=== PATIENT | female | born 1935 | race Caucasian/White ===

== ENCOUNTER 2021-05-22 10:39 | Inpatient (IN) | payer MEDICARE, BC, SELFPAY ==
[2021-05-22] VITALS (28 sets, daily range): BP systolic 111–163; BP diastolic 58–95; PULSE 80–149; RESP 16–32; TEMP 36.4–36.8; O2SAT 91–100; BMI 21.9
--- NOTE | ~2021-05-22 | XR_ITS ---
EXAMINATION: XR chest 2V EXAM DATE: 05/22/2021 11:28 INDICATION: Shortness of breath, COPD. TECHNIQUE: Frontal and lateral projections of the chest obtained and reviewed. Comparison is made to prior examination from 12/31/2017. FINDINGS: The lungs are hyperinflated which can be seen with chronic obstructive pulmonary disease ( a clinical diagnosis of functional impairment), but is not diagnostic of it. There is cardiomegaly. There is no pneumothorax suspected. There are no pleural effusions. There are no osseous abnormalitie s identified. IMPRESSION: Chronic hyperinflation. Reviewed, dictated and finalized at location A. IMPRESSION: Chronic hyperinflation.
--- NOTE | 2021-05-22 10:45 | ECG_ITS ---
Measurements Intervals Frederic Rate: 124 P: DC: 0 QRS: 3 QRSD: 87 T: 137 QT: 283 QTc: 408 Interpretive Statements ATRIAL FIBRILLATION WITH RAPID VENTRICULAR RESPONSE ST DEVIATION AND T-WAVE ABNORMALITY, CONSIDER ISCHEMIA Electronically Signed On 05-22-2021 15:51:30 CDT by Aakash Walls M.D.
[2021-05-22 11:01] LABS: Basophils Absolute Auto 0.1 K/mm3 (0.0-0.1); Basophils Percent Auto 0.7 % (0.2-1.2); Eosinophils Percent Auto 0.3 % (0-4.4); Hematocrit 46.3 % (37.0-47.0); Hemoglobin 14.2 g/dL (12.0-15.0); Immature Granulocyte Absolute 0.07 K/mm3 (0.00-0.031); Immature Granulocyte Percent A 0.7 % (0-0.5); Lymphocytes Absolute Auto 1.37 K/mm3 (0.9-3.2); Lymphocytes Percent Auto 14.2 % (18.3-44.2); Mean Corpuscular HGB Conc 30.7 g/dl (32-36); Mean Corpuscular Hemoglobin 28.3 pg (26-34); Mean Corpuscular Volume 92.2 fl (80-100); Mean Platelet Volume 10.2 fl (7.4-10.4); Monocytes Absolute Auto 1.2 K/mm3 (0.1-0.6); Monocytes Percent Auto 12.4 % (2.6-8.5); Neutrophils Absolute Auto 6.9 K/mm3 (1.3-6.7); Neutrophils Percent Auto 71.7 % (45.5-73.1); Platelet Count Result 242 k/mm3 (150-375); Red Blood Count 5.02 M/mm3 (4.2-5.4); Red Cell Distribution Width 14.1 % (11.5-14.5); White Blood Count 9.6 K/mm3 (4.5-10.0)
[2021-05-22 11:01] LABS: Alveolar/Arterial O2 Gradient 126.8 mmHg; Base Excess ABG -4.5 mEq/l (+/-2.0); Carboxyhemoglobin 1.1 % THb (0-2.0); Fractional Inspired Oxygen 36 %; HCO3 ABG 20.8 mEq/l (22.0-26.0); Methemoglobin ABG 0.2 %THb (0-1.5); Oxygen Content ABG 18.9 %vol (16.0-22.0); Oxygen Saturation ABG 95.8 % (95.0-100.0); Oxyhemoglobin 93.9 % THb (90.0-100.0); PCO2 ABG 39.6 mmHg (35.0-45.0); PO2 ABG 83.9 mmHg (80.0-100.0); PO2 FiO2 Ratio Arterial Blood 2.33 %; Reduced Hemoglobin 4.8 %THb (0-5.0); Total Hemoglobin 14.3 g/dL (12.0-18.0); pH ABG 7.339 (7.350-7.450)
[2021-05-22 11:02] LABS: Device NASAL CANNULA; Modified Allen's Test Pass; Site Drawn RIGHT RADIAL
[2021-05-22 11:08] LABS: Alanine Aminotransferase 18 U/L (4-35); Albumin Level 4.4 g/dL (3.5-5.1); Alkaline Phosphatase 107 U/L (38-126); Anion Gap 12 mmol/L (8-16); Aspartate Amino Transferase 29 U/L (14-36); Bilirubin,Total 1.9 mg/dL (0.2-1.3); Blood Urea Nitrogen 33 mg/dL (7-17); Calcium 9.1 mg/dL (8.4-10.2); Carbon Dioxide 26 mmol/L (22-30); Chloride 100 mmol/L (98-107); Estimated CRCL calculation 34 ml/min; Estimated Glomerular Filt Rate 60; Glucose 231 mg/dL (65-110); Potassium 4.4 mmol/L (3.4-5.0); Sodium 138 mmol/L (137-145)
--- NOTE | 2021-05-22 12:28 | ED.SOB ---
HPI - SOB/Dyspnea General Chief Complaint: Shortness of Breath/Dyspnea Stated Complaint: resp distress Source: patient and family Limitations: no limitations History of Present Illness HPI Narrative: 85-year-old female presents emergency room secondary progressive shortness of breath. Patient has longstanding history of underlying COPD. She is not oxygen dependent at home. She states the last few days she gotten to where she now having some shortness of breath with minimal exertion. This is new for her. She has had some cold-like symptoms . No significant color to her sputum. She denies any chest pain. She does have a history of chronic underlying atrial fibrillation which has been rate controlled. She is fully vaccinated for Covid as well as influenza. She has a rescue inhaler she just use as needed. Related Data Allergies Allergy/AdvReac Type Severity Reaction Status Date / Time No Known Allergies Allergy Mild Verified 11/17/20 14:00 Review of Systems Review of Systems: CONSTITUTIONAL: Denies fever, chills, or sweats. EYES: Denies visual changes, redness, or discharge. ENT: Denies rhinorrhea, congestion, sore throat, or otalgia. CARDIOVASCULAR: Denies chest pain, palpitations, or edema. RESPIRATORY: Progressive shortness of breath over the last several days productive cough at times. A. GASTROINTESTINAL: Denies abdominal pain, nausea, vomiting, or diarrhea. GENITOURINARY: Denies dysuria or hematuria. SKIN: Denies rash or itching. MUSCULOSKELETAL: Denies back pain, joint pain, or myalgia. NEUROLOGIC: Denies headache, numbness, or weakness. PSYCHIATRIC: Denies anxiety or depression. [facility] Past Medical History Medical History ACL (anterior cruciate ligament) tear Atrial fibrillation COPD (chronic obstructive pulmonary disease) Diastolic dysfunction PAD (peripheral artery disease) Pulmonary hypertension Sleep disturbance Surgical History Surgical History History of facial surgery Family History Family History Father Cerebrovascular accident Mother Family history of malignant neoplasm Family history of malignant neoplasm of bone Family history of lymphoma Sibling Family history of cardiovascular disease Other Diabetes mellitus Social History Social History Social History: stop smoking 2000 Smoking status: Former smoker Second hand tobacco smoke exposure: Yes Smoking end date: 02/19/00 Alcohol intake: never Exam Narrative: APPEARANCE: Well appearing, no pain or distress, well-nourished. Head normocephalic and atraumatic. EYES: PERRLA/EOMI, conjunctivae very clear. NOSE: Normal with no drainage EARS:TMS clear [place], with good light reflex. THROAT: Pharynx clear, no exudate. NECK: Supple. No adenopathy, no masses. RESPIRATORY: Mild diffuse expiratory wheezing CARDIOVASCULAR: Irregular rate and rhythm without murmurs, rubs, or gallops. Tachycardic in the 120s ABDOMINAL: Soft, nontender, nondistended, no hepatosplenomegaly Musculoskeletal: Moves all extremities. Strength/ROM intact, No edema, No calf tenderness. NEURO: Alert. Cranial nerves II through XII intact. Normal gait. Good coordination. Nonfocal examination. SKIN:: Warm, dry. Normal Color PSYCHIATRIC: Normal affect/mood, normal interaction Course Vital Signs Vital signs: Vital Signs Temperature 98.3 F 05/22/21 10:30 Pulse Rate 132 H 05/22/21 10:30 Respiratory Rate 30 H 05/22/21 10:30 Blood Pressure 163/76 H 05/22/21 10:30 Pulse Oximetry 98 05/22/21 10:30 Temperature 98.3 F 05/22/21 10:30 Pulse Rate 122 H 05/22/21 13:30 Respiratory Rate 25 H 05/22/21 13:30 Blood Pressure 149/70 H 05/22/21 13:01 Pulse Oximetry 98 05/22/21 13:30 MDM - SOB/Dyspnea MDM Narrative Medi
[2021-05-22] MEDS: ALBUTEROL SULFATE NEB 2.5 MG/0.5 ML INH 5 MG INHALATION (12:39)
[2021-05-22] MEDS: IPRATROPIUM BR 0.02% INH SOLN 0.5 MG/2.5 ML VIAL INHALATION (12:39)
[2021-05-22] MEDS: methylPREDNISolone SOD SUCC 125 MG VIAL IV PUSH (12:44)
[2021-05-22 13:05] LABS: Troponin I 0.047 ng/mL (0.000-0.034)
--- NOTE | 2021-05-22 16:00 | PM.IMHP ---
H&P: HPI History of Present Illness Date/Time: 05/22/21 16:00 Chief Complaint: Shortness of breath. Narrative: This is a pleasant 85-year-old female with COPD and chronic atrial fibrillation on anticoagulation who presented to the emergency department for evaluation of shortness of breath. She has chronic dyspnea but her breathing has been worse these past few weeks. The last 3 days she has felt quite a bit worse with pretty significant wheezing and a cough productive of green phlegm. Initially her nebulizers helped however they have been providing lesser and lesser benefit. Today her pulse oximeter showed an SpO2 in the 70s and she decided to come in for evaluation. Chest x-ray done on arrival to the ER showed chronic hyperinflation and aside from a mild troponin elevation, her other labs were unremarkable. Additionally she was found to be in AFib/RVR though she has no symptoms of such, and she admits that she did not take her diltiazem yet this morning. She has not had fever, chills, or sweats. She denies chest pain, pleuritic pain, orthopnea, paroxysmal nocturnal dyspnea, and lower extremity edema. Her appetite has been fair and she denies nausea, vomiting, and diarrhea. No sick contacts. Review of Systems Review of Systems: Twelve systems were reviewed. Except as documented, all other systems were reviewed and are negative. [facility] Past Medical History Medical History (Updated 05/22/21 @ 21:32 by Lila Collins PA-C) Atrial fibrillation Chronic obstructive pulmonary disease Diastolic dysfunction Peripheral arterial disease Pulmonary hypertension Surgical History Surgical History (Updated 05/22/21 @ 21:20 by Lila Collins PA-C) History of cataract extraction History of facial surgery Family History Family History Father Cerebrovascular accident Mother Family history of malignant neoplasm of bone Family history of cardiovascular disease Diabetes mellitus Family history of malignant neoplasm Family history of lymphoma Sibling Family history of cardiovascular disease Son Diabetes mellitus Social History Social History (Updated 05/22/21 @ 21:21 by Lila Collins PA-C) Social History: Surrogate decision maker: Max Bernstein, dari. Code status: Full code. Smoking packs per day: 1 Smoking cigarettes per day: 20.0 Years smoked: 30 Smoking pack-years: 30.00 Smoking status: Former smoker Tobacco type: cigarettes Second hand tobacco smoke exposure: Yes Smoking end date: 02/19/00 Alcohol intake: current Drinks per week: 1 Substance use: never Additional living arrangements comments: Assisted living at [facility] in [place]. Spiritual care concerns: No Meds Home Medications and Allergies Home Medications Medication Instructions Recorded Confirmed Type albuterol sulfate 90 mcg/actuation 2 puff INHALATION Q4H PRN #8.5 gm 02/25/19 05/22/21 Rx aerosol inhaler rivaroxaban 15 mg tablet 15 mg PO DAILY #90 tablet 04/28/20 05/22/21 Rx potassium chloride 10 mEq See Rx Instructions .ROUTE 11/14/20 05/22/21 Rx capsule,extended release .COMPLEX #30 cap diltiazem HCl 60 mg PO BID 05/22/21 05/22/21 History shreqdftfax-xpeybzyou-rmidjhlz 1 inhalation INHALATION DAILY PRN 05/22/21 05/22/21 History [Trelegy Ellipta] Allergies Allergy/AdvReac Type Severity Reaction Status Date / Time No Known Allergies Allergy Mild Verified 05/22/21 15:08 Vital Signs Vital Signs - 24 hr 05/22/21 10:30 05/22/21 10:48 05/22/21 10:49 Temperature 98.3 F Pulse Rate 132 H Respiratory Rate 30 H Blood Pressure 163/76 H Pulse Oximetry 98 96 96 05/22/21 11:44 05/22/21 11:45 05/22/21 12:29 Temperature Pulse Rate 143 H 133 H 126 H Respiratory Rate 28 H 30 H 23 H Blood Pressure Pulse Oximetry 99 100 96 05/22/21 12:30 05/22/21 12:39 05/22/21 12:48 Temperature Pulse Rate 122 H 133 H 149 H
--- NOTE | 2021-05-22 16:10 | ADMGEN ---
This patient, Danielle Bernstein, was admitted to IMU Room 210-01. Patient/family oriented to hospital policies and general routines including ID bracelet, bed and alarms, visiting hours, pain management, procedures, bathroom and other care routines, personal items, smoking policy, room service/diet, and visiting hours. Information on how to activate the Rapid Response Team has been discussed. Patient/Family are encouraged to report perceived risks to care and to ask questions if they do not understand what they are told or what they should do.
[2021-05-22 16:32] LABS: Troponin I 0.041 ng/mL (0.000-0.034)
[2021-05-22 22:03] LABS: Hemoglobin A1C 5.9 % (<5.7)
[2021-05-22] MEDS: AMOXICILLIN/CLAVULANATE K 875-125 MG TAB 1 TABLET PO (22:16)
[2021-05-22] MEDS: dilTIAZem HCL 60 MG TABLET PO (22:28)
[2021-05-22] MEDS: methylPREDNISolone SOD SUCC 125 MG VIAL 60 MG IV PUSH (23:48)
[2021-05-23] VITALS (26 sets, daily range): BP systolic 107–122; BP diastolic 61–97; PULSE 98–152; RESP 16–20; TEMP 36.2–37.2; O2SAT 91–99
[2021-05-23] MEDS: IPRATROPIUM BR 0.02% INH SOLN 0.5 MG/2.5 ML VIAL INHALATION ×4 (02:06→19:54)
[2021-05-23] MEDS: methylPREDNISolone SOD SUCC 125 MG VIAL 60 MG IV PUSH ×4 (06:40→23:27)
[2021-05-23 08:07] LABS: Glucose Point of Care 156 mg/dl (65-105)
[2021-05-23] MEDS: dilTIAZem HCL 60 MG TABLET PO ×2 (08:21→20:35)
[2021-05-23] MEDS: RIVAROXABAN 15 MG TABLET PO (08:22)
[2021-05-23] MEDS: guaiFENesin 12 HR 600 MG TABCR PO ×2 (08:22→20:35)
[2021-05-23] MEDS: AMOXICILLIN/CLAVULANATE K 875-125 MG TAB 1 TABLET PO ×2 (08:22→20:35)
[2021-05-23] MEDS: POTASSIUM CHLORIDE 10 MEQ TABLET.ER BY MOUTH (08:23)
[2021-05-23] MEDS: FLUTICASONE/UMECLIDIN/VILANTER 100-62.5-25 MCG ELLIPTA 1 PUFF INHALATION (08:34)
[2021-05-23 12:26] LABS: Glucose Point of Care 206 mg/dl (65-105)
[2021-05-23] MEDS: INSULIN ASPART (*BKC) 100 UNITS/ML SUB-Q ×2 (12:30→20:34)
--- NOTE | 2021-05-23 15:02 | PM.IMPN ---
Progress Note: A&P Assessment and Plan (1) Hyperglycemia: Code(s): R73.9 - Hyperglycemia, unspecified Status: Acute (2) Acute respiratory failure with hypoxia: Code(s): J96.01 - Acute respiratory failure with hypoxia Status: Acute (3) Atrial fibrillation with rapid ventricular response: Code(s): I48.91 - Unspecified atrial fibrillation Status: Acute (4) Elevated troponin: Code(s): R77.8 - Other specified abnormalities of plasma proteins Status: Acute (5) Peripheral arterial disease: Code(s): I73.9 - Peripheral vascular disease, unspecified Status: Acute (6) COPD exacerbation: Code(s): J44.1 - Chronic obstructive pulmonary disease with (acute) exacerbation Status: Acute (7) Chronic obstructive pulmonary disease: Code(s): J44.9 - Chronic obstructive pulmonary disease, unspecified Status: Acute (8) Essential hypertension: Code(s): I10 - Essential (primary) hypertension Status: Acute (9) PAD (peripheral artery disease): Code(s): I73.9 - Peripheral vascular disease, unspecified Status: Acute (10) Pulmonary hypertension: Code(s): I27.20 - Pulmonary hypertension, unspecified Status: Acute Additional Plan 05/23/21 c/s pulm c/s cardio metoprolol PRN cont OAC and diltiazem cardio to adjust supplemental O2 duonebs q 4 hrs PRN steroids supportive care Subjective Date/time seen: 05/23/21 15:02 doing ok does report chest tightness and SOB not on home O2 not very compliant w home meds last COPD exacerbation 3 yrs ago Exam Narrative: General: Thin, frail elderly female sitting up in bed. Weight: 56.2 kg. BMI: 21.9. HEENT: PERRL, EOMI. Sclerae anicteric. Oral mucosa is tacky. Neck: Supple. No JVD. Respiratory: Conversational dyspnea, speaking in 4 to 5 word sentences. Occasional pursed lipped breathing. mild accessory muscle use. Lung sounds are significantly diminished throughout with increased expiratory phase and diffuse wheezing. Cardiovascular: Tachycardic, irregularly irregular with S1-S2. Telemetry shows AFib/RVR with rates in the 120s to 130s. Gastrointestinal: Abdomen is soft, nontender, and nondistended with positive bowel sounds. Skin: Warm and dry. No rash or lesions on limited exam. Extremities: No cyanosis, clubbing, or edema. Radial and pedal pulses intact. Negative Frida sign bilaterally. Neurological: Alert. Cranial nerves 2-12 are grossly intact. No gross focal deficits to casual conversation. Psychiatric: Pleasant and cooperative with normal mood and affect. Objective Data Vital Signs Vital Signs: Vital Signs - 24 hr 05/22/21 15:55 05/22/21 16:35 05/22/21 17:00 Temperature 98.3 F Pulse Rate 119 H 80 Respiratory Rate 27 H 24 H Blood Pressure 119/89 147/73 H Pulse Oximetry 98 97 95 05/22/21 18:00 05/22/21 19:59 05/22/21 20:00 Temperature 97.7 F Pulse Rate 115 H 101 H 119 H Respiratory Rate 20 Blood Pressure 111/58 L Pulse Oximetry 96 96 05/22/21 22:00 05/22/21 23:39 05/23/21 00:00 Temperature 97.6 F Pulse Rate 122 H 116 H 110 H Respiratory Rate 16 Blood Pressure 137/95 H Pulse Oximetry 91 96 05/23/21 02:00 05/23/21 02:10 05/23/21 02:11 Temperature Pulse Rate 106 H 104 H Respiratory Rate 16 Blood Pressure Pulse Oximetry 97 05/23/21 02:17 05/23/21 04:00 05/23/21 06:00 Temperature 97.9 F Pulse Rate 98 107 H 110 H Respiratory Rate 16 20 Blood Pressure 111/69 Pulse Oximetry 96 05/23/21 08:00 05/23/21 08:32 05/23/21 08:34 Temperature 97.5 F L Pulse Rate 119 H 111 H Respiratory Rate 20 18 Blood Pressure 108/63 Pulse Oximetry 96 92 05/23/21 08:40 05/23/21 10:00 05/23/21 12:00 Temperature 97.5 F L Pulse Rate 120 H 101 H 131 H Respiratory Rate 18 18 Blood Pressure 119/97 H Pulse Oximetry 94 05/23/21 14:00 05/23/21 14:43 Temperature Pulse Rate 105 H 142 H R
[2021-05-23 16:38] LABS: Glucose Point of Care 190 mg/dl (65-105)
[2021-05-23 20:12] LABS: Glucose Point of Care 305 mg/dl (65-105)
[2021-05-23] MEDS: METOPROLOL TARTRATE INJ 5 MG/5 ML VIAL 2.5 MG IV PUSH (20:34)
--- NOTE | 2021-05-23 21:30 | ECHO_ITS ---
Patient Info Name: Danielle Bernstein Age: 85 years : 1935 Gender: Female Ht: 63 in Wt: 123 lbs BSA: 1.58 m2 HR: 107 bpm BP: 111 / 69 mmHg Heart Rhythm: Atrial Fibrillation Technical Quality: Fair Exam Date: 05/23/2021 8:44 AM Exam Location: [facility] Pul[facility] Patient Status: Inpatient Admit Date: 05/22/2021 Staff Ordering Physician: Lila Collins PA-C Green Hide Inspector: Marilin Valenzuela RDCS Attending Provider: Jarvis Otoole MD Referring Physician: Dennis BRENNAN; Exam Type: CA echo doppler color flow Study Info Indications - Afib/RVR, elevated troponin Complete two-dimensional, color flow and Doppler transthoracic echocardiogram is performed. Summary 1. Complete two-dimensional, color flow and Doppler transthoracic echocardiogram is performed. 2. Left ventricular chamber dimension is normal. 3. Left ventricular systolic function is normal, estimated at 55-60%. 4. There is moderately increased left ventricular wall thickness. 5. The left ventricular diastolic function is abnormal. 6. E/e' 12 is mildly elevated. 7. Atrial fibrillation. 8. Right ventricular systolic function is reduced based on abnormal TAPSE 0.7 cm. 9. Left atrial chamber dimension is severely enlarged. 10. Right atrial chamber dimension is moderately enlarged. 11. There is mild aortic valve sclerosis. 12. The mitral valve has mildly calcified annulus. 13. There is mild mitral valve regurgitation. 14. There is mild to moderate tricuspid valve regurgitation. 15. Severe pulmonary hypertension, estimated pulmonary arterial systolic pressure is 66 mmHg. 16. There is mild to moderate pulmonic regurgitation. 17. Dilated inferior vena cava with <50% collapse upon inspiration consistent with significantly elevated right atrial pressure, 15 mmHg. Left Ventricle E/e' 12 is mildly elevated. Atrial fibrillation. Left ventricular chamber dimension is normal. Left ventricular systolic function is normal, estimated at 55-60%. There is moderately increased left ventricular wall thickness. The left ventricular diastolic function is abnormal. Right Ventricle Right ventricular systolic function is reduced based on abnormal TAPSE 0.7 cm. Right ventricular chamber dimension is not well visualized. Left Atria Left atrial chamber dimension is severely enlarged. Right Atria Right atrial chamber dimension is moderately enlarged. Aortic Valve The aortic valve is trileaflet. There is mild aortic valve sclerosis. There is no aortic valve stenosis. There is no aortic valve regurgitation. Pulmonic Valve There is mild to moderate pulmonic regurgitation. Mitral Valve The mitral valve has mildly calcified annulus. There is no mitral valve stenosis. There is mild mitral valve regurgitation. Tricuspid Valve There is mild to moderate tricuspid valve regurgitation. Severe pulmonary hypertension, estimated pulmonary arterial systolic pressure is 66 mmHg. Pericardium/Pleural There is no pericardial effusion. Inferior Vena Cava Dilated inferior vena cava with <50% collapse upon inspiration consistent with significantly elevated right atrial pressure, 15 mmHg. Aorta The aortic root size at the sinus of Valsalva is normal. Left Ventricular Outflow Tract Name Value Normal LVOT 2D ---------
[2021-05-24] VITALS (26 sets, daily range): BP systolic 97–121; BP diastolic 56–76; PULSE 83–149; RESP 12–20; TEMP 36.1–36.6; O2SAT 91–98
[2021-05-24] MEDS: IPRATROPIUM BR 0.02% INH SOLN 0.5 MG/2.5 ML VIAL INHALATION ×4 (02:11→20:26)
[2021-05-24 04:48] LABS: Basophils Absolute Auto 0.1 K/mm3 (0.0-0.1); Basophils Percent Auto 0.6 % (0.2-1.2); Eosinophils Percent Auto 0.3 % (0-4.4); Hematocrit 40.9 % (37.0-47.0); Hemoglobin 12.8 g/dL (12.0-15.0); Immature Granulocyte Absolute 0.11 K/mm3 (0.00-0.031); Immature Granulocyte Percent A 1.1 % (0-0.5); Lymphocytes Absolute Auto 0.54 K/mm3 (0.9-3.2); Lymphocytes Percent Auto 5.4 % (18.3-44.2); Mean Corpuscular HGB Conc 31.3 g/dl (32-36); Mean Corpuscular Hemoglobin 28.7 pg (26-34); Mean Corpuscular Volume 91.7 fl (80-100); Mean Platelet Volume 10.1 fl (7.4-10.4); Monocytes Absolute Auto 0.4 K/mm3 (0.1-0.6); Monocytes Percent Auto 4.3 % (2.6-8.5); Neutrophils Absolute Auto 8.9 K/mm3 (1.3-6.7); Neutrophils Percent Auto 88.3 % (45.5-73.1); Platelet Count Result 257 k/mm3 (150-375); Red Blood Count 4.46 M/mm3 (4.2-5.4); Red Cell Distribution Width 13.5 % (11.5-14.5)
[2021-05-24 05:08] LABS: Anion Gap 7 mmol/L (8-16); Blood Urea Nitrogen 53 mg/dL (7-17); Calcium 9.1 mg/dL (8.4-10.2); Carbon Dioxide 29 mmol/L (22-30); Chloride 102 mmol/L (98-107); Estimated CRCL calculation 34 ml/min; Estimated Glomerular Filt Rate 60; Glucose 173 mg/dL (65-110); Magnesium 2.6 mg/dL (1.6-2.3); Sodium 138 mmol/L (137-145)
[2021-05-24] MEDS: ONDANSETRON INJ 4 MG/2 ML VIAL IV PUSH (05:49)
[2021-05-24] MEDS: methylPREDNISolone SOD SUCC 125 MG VIAL 60 MG IV PUSH (05:49)
[2021-05-24 08:10] LABS: Glucose Point of Care 176 mg/dl (65-105)
[2021-05-24] MEDS: AMOXICILLIN/CLAVULANATE K 875-125 MG TAB 1 TABLET PO ×2 (08:23→19:55)
[2021-05-24] MEDS: guaiFENesin 12 HR 600 MG TABCR PO ×2 (08:24→19:55)
[2021-05-24] MEDS: dilTIAZem HCL 60 MG TABLET PO ×2 (08:24→19:55)
[2021-05-24] MEDS: RIVAROXABAN 15 MG TABLET PO (08:24)
[2021-05-24] MEDS: FLUTICASONE/UMECLIDIN/VILANTER 100-62.5-25 MCG ELLIPTA 1 PUFF INHALATION (08:55)
--- NOTE | 2021-05-24 10:32 | PM.CNPUL ---
Assessment and Plan Assessment and plan (1) COPD exacerbation: Code(s): J44.1 - Chronic obstructive pulmonary disease with (acute) exacerbation Status: Acute Assessment and Plan: Patient with 46 pack year history of tobacco smoke, quit in 2000, moderate obstructive abnormality on PFTs from 10/08/2018 with air trapping and hyperinflation, pulmonary hypertension with a PASP of 55 this admission who presents with 3 day history of shortness of breath, increased wheezing, increased cough and change in phlegm color to green. Patient has a COPD exacerbation. Today she is 80% back to normal and I would change her Solu-Medrol to prednisone 40 mg p.o. q.day. I will continue her ipratropium nebulizers and levalbuterol nebulizers a q.6 hours. patient has no focal infiltrates on her chest x-ray and I agree with Augmentin which was started on 05/22/2021. patient is requiring 1 L nasal cannula at this time to maintain saturations greater than 90%. since the patient has refused oxygen previously in our clinic I asked the patient if she would wear oxygen at home and she said she needed more time to think about that. It was also recommended in the past the patient had a sleep study and she has continued to refuse that today. Regarding her AFib RVR I am hopeful that her heart rate can be controlled without a beta-delicia, but If needed we could monitor her to determine that she could tolerate that his drug while she is in the hospital. Regarding her pulmonary hypertension I suspect that it is related to her COPD, possible on treated obstructive sleep apnea and untreated hypoxemia. Will follow with you History of Present Illness History of Present Illness Consult date: 05/24/21 Requesting physician: Flora Ospina MD Reason for consult: COPD Chief complaint: Hypoxia, Exaccerbation COPD, Elevated Trop Narrative: 05/24/2021: This is a new pulmonary consult for COPD exacerbation. 85-year-old woman with a history of atrial fibrillation on Xarelto, history of tobacco use, quit in 2000 with COPD with a post bronchodilator FEV1 of 1.10 L, 65% predicted, air trapping and hyper in inflation on PFTs from 10/08/2018. patient was followed in the Pulmonary Clinic and her last visit was on 02/25/2019 and at that time she was maintained on trilogy and rescue short-acting beta agonist. She required oxygen but at that time refused. It was recommended that she have a sleep study and at that time she declined the sleep study. On a good day the patient states she can walk 1 but not to blocks. She does not get short of breath when she dresses or addresses. She states that she lives in assisted living and is able to accomplish the sings that she wants to accomplish on a daily basis. She smokes cigarettes at 1 pack a day from age [age] for a total of 46 pack years. 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 Patient presented to the emergency room on 05/22/2021 with shortness of breath. Patient tells me she had a 3 day history of shortness of breath, increased frequency of her cough, increased phlegm production with green phlegm and some wheezing. Patient was also found to be in AFib with RVR. Patient had a blood gas of 7.34/40/83 on 4 L nasal cannula, WBC 9.6 with 0.3% eos=29/uL, CXR with hyperinflation adn no focal infiltrates. Patient was admitted to the hospital for COPD exacerbation and atrial fibrillation with rapid ventricular response. Patient was treated with Solu-Medrol, ipratropium and levalbuterol nebulizers, Augmentin, trilogy and guaifenesin. patient was started on Diltiazem 60 mg q.12 hours, continued on Xarelto 50 mg p.o. q.day and metoprolol 2.5 mg IV push q.4 hours for her AFib with RVR. 05/24 today the patient tells me that she is 80% back to normal. She has no wheezing. She is on 1 L nasal
[2021-05-24] MEDS: INSULIN ASPART (*BKC) 100 UNITS/ML SUB-Q (12:03)
[2021-05-24] MEDS: predniSONE 20 MG TABLET 40 MG PO (12:03)
[2021-05-24 12:11] LABS: Glucose Point of Care 231 mg/dl (65-105)
[2021-05-24] MEDS: PANTOPRAZOLE 40 MG TABLET PO (12:44)
[2021-05-24] MEDS: METOPROLOL TARTRATE INJ 5 MG/5 ML VIAL 2.5 MG IV PUSH ×2 (13:03→17:01)
--- NOTE | 2021-05-24 14:12 | PM.CNCAR ---
Assessment and Plan Assessment and plan (1) Atrial fibrillation with rapid ventricular response: Code(s): I48.91 - Unspecified atrial fibrillation Status: Acute Assessment and Plan: Rapid due to COPD exacerbation. On Diltiazem 60 mg PO BID. She has been receiving Metoprolol tartate 2.5 mg IV prn. Will add Digoxin 125 mcg daily for HR control until COPD exac resolves. (2) Elevated troponin: Code(s): R77.8 - Other specified abnormalities of plasma proteins Status: Acute Assessment and Plan: Peaked at 0.047. No ACS. Echo shows no wall motion abnormalities. Due to COPD exac. (3) COPD exacerbation: Code(s): J44.1 - Chronic obstructive pulmonary disease with (acute) exacerbation Status: Acute Assessment and Plan: Managed by pulm service. (4) Essential hypertension: Code(s): I10 - Essential (primary) hypertension Status: Acute Assessment and Plan: Stable. Low normal. History of Present Illness History of Present Illness Consult date/time: 05/24/21 14:12 Patient is a 85 yr old woman who is my regular cardiology patient presented to hospital yesterday for sob. She has a history of diastolic dysfunction, PAD, COPD, Atrial fibrillation, PAD, recent diagnosis of Alzheimer's. Her son is at [facility]. Reports she noted more sob in at least the last 3 days. She lives at [place]. 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 Denies any palpitations, chest pain. 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 She lost her in August 2019. Cardiovascular Procedures 05/23/21 Echo: EF 55-60%, mod LVH, diastolic dysfunction (E/e' 12), TAPSE 0.7 cm, severe LAE, mod KEMAR, mild MR, mild-mod TR/PI, RVSP 66 mmHg. Echo/MUGA:: Echo (EF 55-60%, mod biatrial enlargement, mod MR/TR, trace PI.) - 07/10/2017 Echo (EF 60%, mod LVH, patient is in atrial fib; tissue doppler is not performed, mod LAE, severe KEMAR, mild-mod MR, mild AI, mod TR, RVSP 67 mmHg, grade I atheroma in ant/post aortic root.) - 12/11/2016 Electrophysiology:: 05/23/21 EKG: Atrial fib at 124 bpm, ST-T wave abnormality- consider ischemia. 04/28/20 EKG: Atrial fibrillation at 89 bpm. EKG (Atrial fibrillation at 100 bpm, ST-T wave abnormality- consider anterolateral/lat ischemia.) - 12/14/2016 Stress Tests:: CXR (Small bilateral pleural effusions.) - 07/10/2017 MPI (Lexisan myoview: Negative for ischemia.) - 12/21/2016 SHREYA (SHREYA right 1.23 and left 1.19; TBI 0.28 on right and 0.24 on left (normal >0.65) suggestive of PAD. Triphasic waveforms throughout except biphasic at ankle.) - 09/04/2017 Venous Duplex (Negative for DVT bilaterally.) - 09/04/2017 Carotid Duplex (16-49% right ICA; and 50% left ICA stenosis.) - 12/18/2016 Carotid Duplex (<50% right ICA; 50-69% left ICA stenosis.) - 08/18/2012 Reason For Visit: Hypoxia, Exaccerbation COPD, Elevated Trop Review of Systems Review of Systems: All systems reviewed & are unremarkable except as noted in HPI and below Constitutional: Constitutional: Reports as per HPI, Denies chills, Reports fatigue and Denies fever(s) Cardiovascular: Cardiovascular: Reports as per HPI, Denies chest pain, Reports irregular heart rhythm, Denies leg edema and Denies lightheadedness Respiratory: Respiratory: Reports as per HPI, Reports cough and Reports dyspnea on exertion Gastrointestinal: Gastrointestinal: Reports as per HPI and Denies abdominal pain Genitourinary: Genitourinary: Reports as per HPI and Denies dysuria Musculoskeletal: Musculoskeletal: Reports as per HPI Neurologic: Reports as per HPI, Denies dizziness and Denies syncope [facility] Past Medical History Medical History (Updated 05/22/21 @ 21:32 by Lila Collins PA-C) Atrial fibrillation Chronic obstructive pulmonary disease Diastolic dysfunction Peripheral arterial disease Pulmonary hypertension Surgical History Surgical History (Updated 05/22/21 @ 21:20 by Lila Collins PA-C) Hi
[2021-05-24] MEDS: DIGOXIN TAB 125 MCG TABLET PO (14:32)
[2021-05-24 16:41] LABS: Glucose Point of Care 137 mg/dl (65-105)
--- NOTE | 2021-05-24 18:45 | PM.IMPN ---
Progress Note: A&P Assessment and Plan (1) Hyperglycemia: Code(s): R73.9 - Hyperglycemia, unspecified Status: Acute (2) Acute respiratory failure with hypoxia: Code(s): J96.01 - Acute respiratory failure with hypoxia Status: Acute (3) Atrial fibrillation with rapid ventricular response: Code(s): I48.91 - Unspecified atrial fibrillation Status: Acute (4) Elevated troponin: Code(s): R77.8 - Other specified abnormalities of plasma proteins Status: Acute (5) Peripheral arterial disease: Code(s): I73.9 - Peripheral vascular disease, unspecified Status: Acute (6) COPD exacerbation: Code(s): J44.1 - Chronic obstructive pulmonary disease with (acute) exacerbation Status: Acute (7) Chronic obstructive pulmonary disease: Code(s): J44.9 - Chronic obstructive pulmonary disease, unspecified Status: Acute (8) Essential hypertension: Code(s): I10 - Essential (primary) hypertension Status: Acute (9) Pulmonary hypertension: Code(s): I27.20 - Pulmonary hypertension, unspecified Status: Acute Additional Plan 05/23/21 c/s pulm c/s cardio metoprolol PRN cont OAC and diltiazem cardio to adjust supplemental O2 duonebs q 4 hrs PRN steroids supportive care 05/24/21 Patient improving with medical therapy Seen by both Cardiology and pulmonology recommendations appreciated Decrease steroid therapy Anticipate discharge home in 24-48 hours Subjective Date/time seen: 05/24/21 18:45 Patient improving with medical therapy, down 1 L of oxygen at this time Seen by both Cardiology and pulmonology recommendations appreciated Exam Narrative: GEN: NAD, AAOx3, cooperative, frail appearing HEENT: NCAT, MMM, EOMI Neck: no JVD Heart: S1S2 RRR Lungs: CTA B/l no wheezes rhonchi or crackles Abd: soft, NT, ND, bowel sounds normoactive Ext: moves all, no cyanosis, no clubbing, no edema Neuro: Cranial nerves intact A&O x3 no focal neurological deficits appreciated Psych: Mood and affect congruent Objective Data Vital Signs Vital Signs: Vital Signs - 24 hr 05/23/21 19:54 05/23/21 19:55 05/23/21 19:56 Temperature 97.2 F L Pulse Rate 107 H 131 H Respiratory Rate 16 18 Blood Pressure 107/64 Pulse Oximetry 96 91 05/23/21 20:00 05/23/21 20:02 05/23/21 20:34 Temperature Pulse Rate 102 H 110 H 131 H Respiratory Rate 18 Blood Pressure Pulse Oximetry 96 05/23/21 22:00 05/23/21 23:28 05/23/21 23:47 Temperature 97.3 F L Pulse Rate 116 H 103 H Respiratory Rate 20 Blood Pressure 107/61 Pulse Oximetry 94 94 05/24/21 00:00 05/24/21 02:10 05/24/21 02:17 Temperature Pulse Rate 136 H 104 H 111 H Respiratory Rate 19 18 Blood Pressure Pulse Oximetry 05/24/21 02:48 05/24/21 04:00 05/24/21 05:14 Temperature 97.2 F L Pulse Rate 114 H 116 H Respiratory Rate 18 Blood Pressure 105/56 L Pulse Oximetry 96 98 05/24/21 06:34 05/24/21 08:00 05/24/21 08:55 Temperature 97.8 F Pulse Rate 110 H 113 H 123 H Respiratory Rate 12 18 Blood Pressure 116/68 Pulse Oximetry 92 05/24/21 08:58 05/24/21 09:05 05/24/21 10:00 Temperature Pulse Rate 118 H 108 H Respiratory Rate 18 Blood Pressure Pulse Oximetry 92 05/24/21 12:00 05/24/21 13:03 05/24/21 13:47 Temperature 97.2 F L Pulse Rate 115 H 142 H 110 H Respiratory Rate 17 18 Blood Pressure 97/68 L Pulse Oximetry 95 05/24/21 13:54 05/24/21 14:00 05/24/21 14:32 Temperature Pulse Rate 109 H 110 H 121 H Respiratory Rate 18 Blood Pressure Pulse Oximetry 05/24/21 16:00 05/24/21 17:01 05/24/21 18:00 Temperature 97.0 F L Pulse Rate 138 H 121 H 108 H Respiratory Rate 19 Blood Pressure 110/76 Pulse Oximetry 96 Intake/Output Intake/Output: Intake & Output 05/21/21 05/22/21 05/23/21 05/24/21 23:59 23:59 23:59 23:59 Intake Total 513 712 8601 Output Total 0 900
[2021-05-24 20:40] LABS: Glucose Point of Care 229 mg/dl (65-105)
[2021-05-25] VITALS (22 sets, daily range): BP systolic 91–137; BP diastolic 52–106; PULSE 89–165; RESP 14–20; TEMP 36.1–36.9; O2SAT 90–100
[2021-05-25] MEDS: IPRATROPIUM BR 0.02% INH SOLN 0.5 MG/2.5 ML VIAL INHALATION ×2 (01:53→08:39)
[2021-05-25 05:03] LABS: Basophils Percent Auto 0.1 % (0.2-1.2); Hematocrit 41.6 % (37.0-47.0); Hemoglobin 12.5 g/dL (12.0-15.0); Immature Granulocyte Absolute 0.28 K/mm3 (0.00-0.031); Immature Granulocyte Percent A 2.4 % (0-0.5); Lymphocytes Absolute Auto 0.69 K/mm3 (0.9-3.2); Mean Corpuscular Hemoglobin 28.6 pg (26-34); Mean Corpuscular Volume 95.2 fl (80-100); Monocytes Absolute Auto 0.6 K/mm3 (0.1-0.6); Monocytes Percent Auto 5.2 % (2.6-8.5); Neutrophils Absolute Auto 9.9 K/mm3 (1.3-6.7); Neutrophils Percent Auto 86.3 % (45.5-73.1); Platelet Count Result 247 k/mm3 (150-375); Red Blood Count 4.37 M/mm3 (4.2-5.4); Red Cell Distribution Width 13.5 % (11.5-14.5); White Blood Count 11.4 K/mm3 (4.5-10.0)
[2021-05-25 05:14] LABS: D Dimer 0.56 ug/mL (<0.48)
[2021-05-25 05:21] LABS: Anion Gap 4 mmol/L (8-16); Blood Urea Nitrogen 59 mg/dL (7-17); Calcium 9.1 mg/dL (8.4-10.2); Carbon Dioxide 30 mmol/L (22-30); Chloride 100 mmol/L (98-107); Estimated CRCL calculation 34 ml/min; Estimated Glomerular Filt Rate 60; Glucose 187 mg/dL (65-110); Magnesium 2.6 mg/dL (1.6-2.3); Sodium 134 mmol/L (137-145)
--- NOTE | 2021-05-25 08:04 | PM.PNCARD ---
Progress Note: A&P Assessment and Plan (1) Atrial fibrillation with rapid ventricular response: Code(s): I48.91 - Unspecified atrial fibrillation Status: Acute Assessment and Plan: Rapid but better due to COPD exacerbation. On Diltiazem 60 mg PO BID. Add Digoxin 125 mcg daily for HR control until COPD exac resolves. (2) Elevated troponin: Code(s): R77.8 - Other specified abnormalities of plasma proteins Status: Acute Assessment and Plan: Peaked at 0.047. No ACS. Echo shows no wall motion abnormalities. Due to COPD exac. (3) COPD exacerbation: Code(s): J44.1 - Chronic obstructive pulmonary disease with (acute) exacerbation Status: Acute Assessment and Plan: Managed by pulm service. (4) Essential hypertension: Code(s): I10 - Essential (primary) hypertension Status: Acute Assessment and Plan: Stable. Low normal. Subjective Date/time seen: 05/25/21 08:04 Denies chest pain. Has sob same as yesterday. Exam Const: General: cooperative, healthy appearing and comfortable Resp: Auscultation: no crackles, no rales, no rhonchi, no wheezes and diminished lung sounds Cardio: Jugular venous distension: no JVD Rate: tachycardic Rhythm: abnormal rhythm Heart sounds: no murmurs Peripheral pulses: dorsalis pedis present GI: GI Palp: No abdominal tenderness and Yes Soft to palpation Neuro: General: oriented to person, oriented to place and oriented to time Extrem: Right lower extremity: no edema Left lower extremity: no edema Objective Data Vital Signs Vital Signs: Vital Signs - 24 hr 05/24/21 08:55 05/24/21 08:58 05/24/21 09:05 Temperature Pulse Rate 123 H 118 H Respiratory Rate 18 18 Blood Pressure Pulse Oximetry 92 05/24/21 10:00 05/24/21 12:00 05/24/21 13:03 Temperature 97.2 F L Pulse Rate 108 H 115 H 142 H Respiratory Rate 17 Blood Pressure 97/68 L Pulse Oximetry 95 05/24/21 13:47 05/24/21 13:54 05/24/21 14:00 Temperature Pulse Rate 110 H 109 H 110 H Respiratory Rate 18 18 Blood Pressure Pulse Oximetry 05/24/21 14:32 05/24/21 16:00 05/24/21 17:01 Temperature 97.0 F L Pulse Rate 121 H 138 H 121 H Respiratory Rate 19 Blood Pressure 110/76 Pulse Oximetry 96 05/24/21 18:00 05/24/21 20:00 05/24/21 20:30 Temperature 96.9 F L Pulse Rate 108 H 83 114 H Respiratory Rate 20 20 Blood Pressure 121/71 Pulse Oximetry 91 92 05/24/21 20:37 05/24/21 22:41 05/24/21 23:59 Temperature 97.0 F L Pulse Rate 116 H 91 115 H Respiratory Rate 20 18 Blood Pressure 99/63 L Pulse Oximetry 92 05/25/21 00:00 05/25/21 01:42 05/25/21 01:54 Temperature Pulse Rate 93 106 H 114 H Respiratory Rate 16 16 Blood Pressure Pulse Oximetry 92 05/25/21 02:58 05/25/21 04:00 05/25/21 06:18 Temperature 96.9 F L Pulse Rate 98 110 H 102 H Respiratory Rate 20 Blood Pressure 91/60 L Pulse Oximetry 100 Intake/Output Intake/Output: Intake & Output 05/22/21 05/23/21 05/24/21 05/25/21 23:59 23:59 23:59 23:59 Intake Total 050 584 9302 375 Output Total 0 900 Balance 240 -120 1430 375 Meds/Results Medications: Active Medications Generic Name Dose Route Start Last Admin Trade Name Freq PRN Reason Stop Dose Admin Amoxicillin/Clavulanate Potassium 1 tablet 05/22/21 21:05 05/24/21 19:55 Amoxicillin/Clavulanate K 875-125 Mg Tab PO 1 tablet Q12HR MARÍA ELENA Administration Dextrose 12.5 gm 05/22/21 21:33 Dextrose 50% 25 Gm/50 Ml Syringe IV PUSH PRN PRN Hypoglycemia Protocol Digoxin 125 mcg 05/24/21 14:22 05/24/21 14:32 Digoxin Tab 125 Mcg Tablet PO 125 mcg QAM MARÍA ELENA Administration Diltiazem HCl 60 mg 05/22/21 21:00 05/24/21 19:55 Diltiazem Hcl 60 Mg Tablet PO 60 mg Q12HR MARÍA ELENA Administration Glucagon 1 mg 05/22/21 21:33 Glucagon For Inj 1 Mg Vial IM PRN PRN Hypoglycemia Protocol Glucose
[2021-05-25 08:23] LABS: Glucose Point of Care 174 mg/dl (65-105)
[2021-05-25] MEDS: predniSONE 20 MG TABLET 40 MG PO (08:27)
[2021-05-25] MEDS: DIGOXIN TAB 125 MCG TABLET PO (08:27)
[2021-05-25] MEDS: guaiFENesin 12 HR 600 MG TABCR PO ×2 (08:27→20:06)
[2021-05-25] MEDS: PANTOPRAZOLE 40 MG TABLET PO (08:27)
[2021-05-25] MEDS: AMOXICILLIN/CLAVULANATE K 875-125 MG TAB 1 TABLET PO ×2 (08:27→20:06)
[2021-05-25] MEDS: dilTIAZem HCL 60 MG TABLET PO ×2 (08:27→20:06)
[2021-05-25] MEDS: RIVAROXABAN 15 MG TABLET PO (08:27)
[2021-05-25] MEDS: METOPROLOL TARTRATE INJ 5 MG/5 ML VIAL 2.5 MG IV PUSH ×3 (09:30→17:57)
--- NOTE | 2021-05-25 10:01 | PM.PNPUL ---
Progress Note: A&P Assessment and Plan (1) COPD exacerbation: Code(s): J44.1 - Chronic obstructive pulmonary disease with (acute) exacerbation Status: Acute Assessment and Plan: 05/24 Patient with 46 pack year history of tobacco smoke, quit in 2000, moderate obstructive abnormality on PFTs from 10/08/2018 with air trapping and hyperinflation, pulmonary hypertension with a PASP of 55 this admission who presents with 3 day history of shortness of breath, increased wheezing, increased cough and change in phlegm color to green. Patient has a COPD exacerbation. Today she is 80% back to normal and I would change her Solu-Medrol to prednisone 40 mg p.o. q.day. I will continue her ipratropium nebulizers and levalbuterol nebulizers a q.6 hours. patient has no focal infiltrates on her chest x-ray and I agree with Augmentin which was started on 05/22/2021. patient is requiring 1 L nasal cannula at this time to maintain saturations greater than 90%. since the patient has refused oxygen previously in our clinic I asked the patient if she would wear oxygen at home and she said she needed more time to think about that. It was also recommended in the past the patient had a sleep study and she has continued to refuse that today. Regarding her AFib RVR I am hopeful that her heart rate can be controlled without a beta-delicia, but If needed we could monitor her to determine that she could tolerate that his drug while she is in the hospital. Regarding her pulmonary hypertension I suspect that it is related to her COPD, possible untreated obstructive sleep apnea and untreated hypoxemia. 05/25 Patient tells me she is breathing 95% back to normal. She still has minimal shortness of breath. Her green phlegm is now yellow and the volume is at her baseline. She is on 1 L nasal cannula saturations 97%. I turned her to room air and her saturations decreased to 87-91%. I placed her back on 1 L. White blood cell count is 11.4. No wheezes on exam. Will discontinue her nebulizers and place her on trelegy. Continue augmentin (day 4 of ). No wheezes on prednisone 40 mg for total 5 days, last dose 05/26 (steroids started 05/22). I had another discussion about her willingness to wear oxygen and at this time she is not willing to wear supplemental oxygen at home as she feels she does not need it and she is improved now. From a pulmonary perspective she is ready to be discharged on these pulmonary medicines. Prednisone 40 mg p.o. q.day through 05/26/2021 Augmentin 875-125 b.i.d. through 05/28/2021 Trelegy 100/62.5/25 at 1 puff Q day Rescue albuterol at 2 puffs q.4 hours p.r.n. shortness of breath or wheezing If she agrees to supplemental oxygen, would perform formal home O2 assessment on the day of discharge and an overnight oximetry on room air the night prior to her discharge to determine her eligibility for oxygen at night. Follow-up 3-4 weeks in the Pulmonary Clinic. 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 Ospina, will sign off, call with questions Subjective Date/time seen: 05/25/21 10:01 Interval history: 05/24/2021: This is a new pulmonary consult for COPD exacerbation. 85-year-old woman with a history of atrial fibrillation on Xarelto, history of tobacco use, quit in 2000 with COPD with a post bronchodilator FEV1 of 1.10 L, 65% predicted, air trapping and hyperinflation on PFTs from 10/08/2018, Patient had an overnight oximetry on 05/23/2017 on room air with saturations less than or equal to 88% at 17 point 4 4 minutes and at that time she declined supplemental oxygen and declined a polysomnogram. patient was followed in the Pulmonary Clinic and her last visit was on 02/25/2019 and at that time she was maintained on trilogy and rescue short-acting beta agonist. She required oxygen but at that time refused. It was recommended that she have a sleep study and at that time she declined the sleep esha
[2021-05-25] MEDS: INSULIN ASPART (*BKC) 100 UNITS/ML SUB-Q (12:34)
[2021-05-25 12:40] LABS: Glucose Point of Care 250 mg/dl (65-105)
[2021-05-25] MEDS: FUROSEMIDE 20 MG TABLET PO (14:56)
[2021-05-25] MEDS: FLUTICASONE/UMECLIDIN/VILANTER 100-62.5-25 MCG ELLIPTA 1 PUFF INHALATION (15:11)
[2021-05-25 16:28] LABS: Glucose Point of Care 177 mg/dl (65-105)
--- NOTE | 2021-05-25 16:47 | PC.NURSE ---
This patient, Danielle Bernstein, was transferred to [[id number] ] on 05/25/21 at 1647. Personal belongings sent with patient. Report given to [JUDY Goff @ [phone] ]. Appropriate documentation sent with patient.
--- NOTE | 2021-05-25 18:13 | PC.NURSE ---
Pt transfer received from IMU room 210. Patient oriented to the room.
--- NOTE | 2021-05-25 19:02 | PM.IMPN ---
Progress Note: A&P Assessment and Plan (1) Hyperglycemia: Code(s): R73.9 - Hyperglycemia, unspecified Status: Acute (2) Acute respiratory failure with hypoxia: Code(s): J96.01 - Acute respiratory failure with hypoxia Status: Acute (3) Atrial fibrillation with rapid ventricular response: Code(s): I48.91 - Unspecified atrial fibrillation Status: Acute (4) Elevated troponin: Code(s): R77.8 - Other specified abnormalities of plasma proteins Status: Acute (5) Peripheral arterial disease: Code(s): I73.9 - Peripheral vascular disease, unspecified Status: Acute (6) COPD exacerbation: Code(s): J44.1 - Chronic obstructive pulmonary disease with (acute) exacerbation Status: Acute (7) Chronic obstructive pulmonary disease: Code(s): J44.9 - Chronic obstructive pulmonary disease, unspecified Status: Acute (8) Essential hypertension: Code(s): I10 - Essential (primary) hypertension Status: Acute (9) Pulmonary hypertension: Code(s): I27.20 - Pulmonary hypertension, unspecified Status: Acute Additional Plan 05/23/21 c/s pulm c/s cardio metoprolol PRN cont OAC and diltiazem cardio to adjust supplemental O2 duonebs q 4 hrs PRN steroids supportive care 05/24/21 Patient improving with medical therapy Seen by both Cardiology and pulmonology recommendations appreciated Decrease steroid therapy Anticipate discharge home in 24-48 hours 05/25/21 sleep study oximetry tonight home O2 eval in am anticipate dc home tomorrow with close outpt follow up Subjective Date/time seen: 05/25/21 19:02 breathing better on RA but saturating below 91% RN requested to put O2 back on pt Exam Narrative: GEN: NAD, AAOx3, cooperative, frail appearing HEENT: NCAT, MMM, EOMI Neck: no JVD Heart: S1S2 RRR Lungs: CTA B/l no wheezes rhonchi or crackles 89% on RA Abd: soft, NT, ND, bowel sounds normoactive Ext: moves all, no cyanosis, no clubbing, no edema Neuro: Cranial nerves intact A&O x3 no focal neurological deficits appreciated Psych: Mood and affect congruent Objective Data Vital Signs Vital Signs: Vital Signs - 24 hr 05/24/21 20:00 05/24/21 20:30 05/24/21 20:37 Temperature 96.9 F L Pulse Rate 83 114 H 116 H Respiratory Rate 20 20 20 Blood Pressure 121/71 Pulse Oximetry 91 92 05/24/21 22:41 05/24/21 23:59 05/25/21 00:00 Temperature 97.0 F L Pulse Rate 91 115 H 93 Respiratory Rate 18 Blood Pressure 99/63 L Pulse Oximetry 92 92 05/25/21 01:42 05/25/21 01:54 05/25/21 02:58 Temperature Pulse Rate 106 H 114 H 98 Respiratory Rate 16 16 Blood Pressure Pulse Oximetry 05/25/21 04:00 05/25/21 06:18 05/25/21 08:00 Temperature 96.9 F L 97.5 F L Pulse Rate 110 H 102 H 92 Respiratory Rate 20 16 Blood Pressure 91/60 L 130/52 L Pulse Oximetry 100 99 05/25/21 08:27 05/25/21 08:43 05/25/21 09:30 Temperature Pulse Rate 118 H 114 H 165 H Respiratory Rate 18 Blood Pressure Pulse Oximetry 05/25/21 10:00 05/25/21 11:55 05/25/21 12:00 Temperature 97.6 F Pulse Rate 117 H 121 H 146 H Respiratory Rate 14 Blood Pressure 137/106 H Pulse Oximetry 92 92 05/25/21 13:54 05/25/21 14:02 05/25/21 15:56 Temperature 98.4 F Pulse Rate 134 H 89 Respiratory Rate 16 Blood Pressure 111/67 Pulse Oximetry 90 97 05/25/21 16:00 05/25/21 17:57 Temperature Pulse Rate 134 H 120 H Respiratory Rate Blood Pressure Pulse Oximetry Intake/Output Intake/Output: Intake & Output 05/22/21 05/23/21 05/24/21 05/25/21 23:59 23:59 23:59 23:59 Intake Total 989 807 8117 735 Output Total 0 900 1 Balance 240 -120 1430 734 Meds/Results Medications: Active Medications Generic Name Dose Route Start Last Admin Trade Name Freq PRN Reason Stop Dose Admin Amoxicillin/Clavulanate Potassium 1 tablet 05/22/21 21:05 05/25/21 08:27 Amoxicillin/Clavulanate
[2021-05-25 20:45] LABS: Glucose Point of Care 216 mg/dl (65-105)
[2021-05-26] VITALS (15 sets, daily range): BP systolic 137; BP diastolic 91; PULSE 68–129; RESP 16; TEMP 36.6; O2SAT 87–94
[2021-05-26] MEDS: METOPROLOL TARTRATE INJ 5 MG/5 ML VIAL 2.5 MG IV PUSH (05:07)
[2021-05-26 07:38] LABS: Glucose Point of Care 140 mg/dl (65-105)
--- NOTE | 2021-05-26 07:54 | PM.PNCARD ---
Progress Note: A&P Assessment and Plan (1) Atrial fibrillation with rapid ventricular response: Code(s): I48.91 - Unspecified atrial fibrillation Status: Acute Assessment and Plan: Rapid but better due to COPD exacerbation. On Diltiazem 60 mg PO BID. Add Digoxin 125 mcg daily for HR control until COPD exac resolves. Change Metoprolol Tartate 2.5 mg IV prn to 25 mg PO BID. (2) Elevated troponin: Code(s): R77.8 - Other specified abnormalities of plasma proteins Status: Acute Assessment and Plan: Peaked at 0.047. No ACS. Echo shows no wall motion abnormalities. Due to COPD exac. (3) COPD exacerbation: Code(s): J44.1 - Chronic obstructive pulmonary disease with (acute) exacerbation Status: Acute Assessment and Plan: Managed by pulm service. (4) Essential hypertension: Code(s): I10 - Essential (primary) hypertension Status: Acute Assessment and Plan: Stable. Low normal. Subjective Date/time seen: 05/26/21 07:54 Reports sob slightly better than yesterday. No chest pain. Exam Const: General: cooperative, healthy appearing and comfortable Resp: Auscultation: no crackles, no rales, no rhonchi, no wheezes and diminished lung sounds Cardio: Jugular venous distension: no JVD Rate: tachycardic Rhythm: abnormal rhythm Heart sounds: no murmurs Peripheral pulses: dorsalis pedis present GI: GI Palp: No abdominal tenderness and Yes Soft to palpation Neuro: General: oriented to person, oriented to place and oriented to time Extrem: Right lower extremity: no edema Left lower extremity: no edema Objective Data Vital Signs Vital Signs: Vital Signs - 24 hr 05/25/21 08:00 05/25/21 08:27 05/25/21 08:43 Temperature 97.5 F L Pulse Rate 92 118 H 114 H Respiratory Rate 16 18 Blood Pressure 130/52 L Pulse Oximetry 99 05/25/21 09:30 05/25/21 10:00 05/25/21 11:55 Temperature 97.6 F Pulse Rate 165 H 117 H 121 H Respiratory Rate 14 Blood Pressure 137/106 H Pulse Oximetry 92 05/25/21 12:00 05/25/21 13:54 05/25/21 14:02 Temperature Pulse Rate 146 H 134 H Respiratory Rate Blood Pressure Pulse Oximetry 92 90 05/25/21 15:56 05/25/21 16:00 05/25/21 17:57 Temperature 98.4 F Pulse Rate 89 134 H 120 H Respiratory Rate 16 Blood Pressure 111/67 Pulse Oximetry 97 05/25/21 19:47 05/25/21 20:00 05/25/21 20:57 Temperature 97.8 F Pulse Rate 111 H 89 Respiratory Rate 14 14 Blood Pressure 112/70 Pulse Oximetry 94 100 100 05/25/21 22:17 05/26/21 00:00 05/26/21 04:00 Temperature Pulse Rate 89 103 H 115 H Respiratory Rate 14 Blood Pressure Pulse Oximetry 100 05/26/21 05:07 05/26/21 05:13 Temperature 97.9 F Pulse Rate 124 H 68 Respiratory Rate 16 Blood Pressure 137/91 H Pulse Oximetry 94 Intake/Output Intake/Output: Intake & Output 05/23/21 05/24/21 05/25/21 05/26/21 23:59 23:59 23:59 23:59 Intake Total 780 1430 735 300 Output Total 900 1 Balance -120 1430 734 300 Meds/Results Medications: Active Medications Generic Name Dose Route Start Last Admin Trade Name Freq PRN Reason Stop Dose Admin Amoxicillin/Clavulanate Potassium 1 tablet 05/22/21 21:05 05/25/21 20:06 Amoxicillin/Clavulanate K 875-125 Mg Tab PO 1 tablet Q12HR MARÍA ELENA Administration Dextrose 12.5 gm 05/22/21 21:33 Dextrose 50% 25 Gm/50 Ml Syringe IV PUSH PRN PRN Hypoglycemia Protocol Digoxin 125 mcg 05/24/21 14:22 05/25/21 08:27 Digoxin Tab 125 Mcg Tablet PO 125 mcg QAM MARÍA ELENA Administration Diltiazem HCl 60 mg 05/22/21 21:00 05/25/21 20:06 Diltiazem Hcl 60 Mg Tablet PO 60 mg Q12HR MARÍA ELENA Administration Fluticasone/Umeclidinium/Vilanterol 1 puff 05/25/21 10:15 05/25/21 15:11 Fluticasone/Umeclidin/Vilanter 100-62.5-25 Mcg Ellipta INHALATION 1 puff DAILYRT MARÍA ELENA Administration Glucagon 1 mg 05/22/21 21:33 Glucagon For Inj 1 Mg Vial
[2021-05-26] MEDS: predniSONE 20 MG TABLET 40 MG PO (07:59)
[2021-05-26] MEDS: guaiFENesin 12 HR 600 MG TABCR PO (07:59)
[2021-05-26] MEDS: DIGOXIN TAB 125 MCG TABLET PO (07:59)
[2021-05-26] MEDS: dilTIAZem HCL 60 MG TABLET PO (07:59)
[2021-05-26] MEDS: RIVAROXABAN 15 MG TABLET PO (08:00)
[2021-05-26] MEDS: AMOXICILLIN/CLAVULANATE K 875-125 MG TAB 1 TABLET PO (08:00)
[2021-05-26] MEDS: PANTOPRAZOLE 40 MG TABLET PO (08:00)
[2021-05-26] MEDS: FLUTICASONE/UMECLIDIN/VILANTER 100-62.5-25 MCG ELLIPTA 1 PUFF INHALATION (08:13)
--- NOTE | 2021-05-26 08:20 | PM.DS ---
DS: Admitting Diagnosis Discharge Date 05/26/21 Admitting Diagnosis (1) Acute respiratory failure with hypoxia: Code(s): J96.01 - Acute respiratory failure with hypoxia Status: Acute (2) COPD exacerbation: Code(s): J44.1 - Chronic obstructive pulmonary disease with (acute) exacerbation Status: Acute (3) Elevated troponin: Code(s): R77.8 - Other specified abnormalities of plasma proteins Status: Acute (4) Atrial fibrillation with rapid ventricular response: Code(s): I48.91 - Unspecified atrial fibrillation Status: Acute (5) Hyperglycemia: Code(s): R73.9 - Hyperglycemia, unspecified Status: Acute DS: Discharge Diagnosis Discharge Diagnosis (1) Hyperglycemia: Code(s): R73.9 - Hyperglycemia, unspecified Status: Acute (2) Acute respiratory failure with hypoxia: Code(s): J96.01 - Acute respiratory failure with hypoxia Status: Acute (3) Atrial fibrillation with rapid ventricular response: Code(s): I48.91 - Unspecified atrial fibrillation Status: Acute (4) Elevated troponin: Code(s): R77.8 - Other specified abnormalities of plasma proteins Status: Acute (5) Peripheral arterial disease: Code(s): I73.9 - Peripheral vascular disease, unspecified Status: Acute (6) COPD exacerbation: Code(s): J44.1 - Chronic obstructive pulmonary disease with (acute) exacerbation Status: Acute (7) Chronic obstructive pulmonary disease: Code(s): J44.9 - Chronic obstructive pulmonary disease, unspecified Status: Acute (8) Essential hypertension: Code(s): I10 - Essential (primary) hypertension Status: Acute (9) Pulmonary hypertension: Code(s): I27.20 - Pulmonary hypertension, unspecified Status: Acute (10) KAREEN and COPD overlap syndrome: Code(s): G47.33 - Obstructive sleep apnea (adult) (pediatric); J44.9 - Chronic obstructive pulmonary disease, unspecified Status: Acute DS: Summary Hospital Course Reason for hospitalization: SOB Hospital Course: 05/22/21 Secondary to COPD exacerbation. Pulmonary embolism unlikely as she is on rivaroxaban. Wean oxygen as tolerated. She would benefit from a home oxygen study prior to discharge. She has been started on Solu-Medrol, scheduled bronchodilators, and Augmentin given increasing shortness of breath and mucopurulent cough. Mucinex and Cornet added to help mobilize secretions. She is not complaining of any chest pain whatsoever and likely these are elevated in the setting of AFib/ RVR and hypoxia related to COPD exacerbation. She will be monitor on telemetry overnight however in troponins will be trended to peak. Echocardiogram ordered; consider Cardiology consult if significantly abnormal. She missed her diltiazem this morning and her rate should improve once she gets this on board. Continue rivaroxaban for stroke prophylaxis. Check fasting glucose and hemoglobin A1c. 05/23/21 c/s pulm c/s cardio metoprolol PRN cont OAC and diltiazem cardio to adjust supplemental O2 duonebs q 4 hrs PRN steroids supportive care 05/24/21 Patient improving with medical therapy Seen by both Cardiology and pulmonology recommendations appreciated Decrease steroid therapy Anticipate discharge home in 24-48 hours 05/25/21 sleep study oximetry tonight home O2 eval in am anticipate dc home tomorrow with close outpt follow up 05/26/21 pulmonology has cleared the patient for discharging given the following recommendations - Prednisone 40 mg p.o. q.day through 05/26/2021 - Augmentin 875-125 b.i.d. through 05/28/2021 -Trelegy 100/62.5/25 at 1 puff Q day -Rescue albuterol at 2 puffs q.4 hours p.r.n. shortness of breath or wheezing Patient is discharged home in stable condition with home O2. She is requested to wear this oxygen during the day and at night. She is advised to see her PCP within 3 days and to follow-up 3-4 weeks in the Pulmonary Clinic.
[2021-05-26] MEDS: METOPROLOL TARTRATE 25 MG TABLET PO (08:28)
--- NOTE | 2021-05-26 11:09 | HOMEO2EVAL ---
Evaluation was performed at [facility] Home Oxygen Evaluation RC: Home Oxygen (O2) Evaluation Start: 05/25/21 19:02 Freq: ONCE Status: Active Protocol: RPE Activity Type Activity Date Activity User E-Sign Co-Sign Detail Recorded Client Recorded Date Recorded By Document 05/26/21 10:35 [email or web address] [email or web address] 05/26/21 11:09 DJO Document 05/26/21 10:40 [email or web address] [email or web address] 05/26/21 11:09 DJO Document 05/26/21 10:45 [email or web address] [email or web address] 05/26/21 11:09 DJO Document 05/26/21 10:50 [email or web address] [email or web address] 05/26/21 11:09 DJO Document 05/26/21 11:05 [email or web address] [email or web address] 05/26/21 11:09 DJO 05/26/21 05/26/21 05/26/21 10:35 10:40 10:45 Home O2 Evaluation Test Phase Resting Resting Exercise Oxygen Delivery Room Air Nasal Cannula Nasal Cannula Oxygen Flow Rate (L/min) 1 1 Pulse Oximetry (90-100 %) 87 L 90 88 L Pulse Rate (60-100 beats/min) 98 99 120 H Activity Tolerance Ambulation Distance (feet) Ambulation Distance (meters) Treatment Charges O2 Evaluation - Inpatient 05/26/21 05/26/21 10:50 11:05 Home O2 Evaluation Test Phase Exercise Resting Oxygen Delivery Nasal Cannula Nasal Cannula Oxygen Flow Rate (L/min) 2 1 Pulse Oximetry (90-100 %) 91 91 Pulse Rate (60-100 beats/min) 129 H 95 Activity Tolerance Good Ambulation Distance (feet) 300 Ambulation Distance (meters) 91.43 Treatment Charges
--- NOTE | 2021-05-26 11:13 | PCRCNOTE ---
HOME O2 1 LITER AT REST AND 2 LITERS WITH ACTIVITY. SET UP WITH [facility]. PHONE NUMBER [phone] TANK DELIVERED TO PT'S ROOM FOR DISCHARGE.
[2021-05-26 11:32] LABS: Glucose Point of Care 178 mg/dl (65-105)
[2021-05-26] MEDS: SUCRALFATE SUSP 100 MG/ML 10 ML UDC 1000 MG PO (13:10)
== END 2021-05-26 13:35 | DRG 190 ==
LOC: ANHED 12:13 → ANHIMU 18:38 → ANH2MED 05-26 08:20 → ANHIMU 05-29 12:48
PROVIDERS: Physician Assistant; Admitting Provider Internal Medicine; Emergency Provider Emergency Medicine; PCP Family Medicine; Visit Provider Hospitalist
DX: J44.1 Chronic obstructive pulmonary disease with (acute) exacerbation (principal); J96.01 Acute respiratory failure with hypoxia; I48.20 Chronic atrial fibrillation, unspecified; I73.9 Peripheral vascular disease, unspecified; R73.9 Hyperglycemia, unspecified; I27.20 Pulmonary hypertension, unspecified; G47.33 Obstructive sleep apnea (adult) (pediatric); G30.9 Alzheimer's disease, unspecified; R79.89 Other specified abnormal findings of blood chemistry; Z87.891 Personal history of nicotine dependence; Z79.01 Long term (current) use of anticoagulants
CPT/HCPCS: 36415; 36600; 71046; 80048; 80053; 82375; 82805; 82948; 83036; 83050; 83735; 84484; 85025; 85380; 93005; 93306; 94618; 94640; 96374; 99285; A9270; J1815; J2405; J2930; J7512

== ENCOUNTER 2021-06-01 11:22 | Inpatient (IN) | payer MEDICARE, BC, SELFPAY ==
[2021-06-01] VITALS (14 sets, daily range): BP systolic 110–143; BP diastolic 63–93; PULSE 69–132; RESP 16–24; TEMP 36.2–36.3; O2SAT 90–98; BMI 22.4
--- NOTE | ~2021-06-01 | XR_ITS ---
EXAMINATION: XR chest 2V DATE: 06/03/2021 11:05 INDICATION: Shortness of breath. Weakness. TECHNIQUE: Frontal and lateral views of the chest were obtained. COMPARISON: Chest single view 06/01/2021, chest 2 views 05/22/2021 FINDINGS: The lungs are hyperexpanded with lucencies in the upper lungs, consistent with emphysema. T here is mild airspace opacities at the lung bases. There are tiny pleural effusions. No pneumothorax. Cardiomegaly is noted. There are 2 chronic compression fractures in mid thoracic spine. IMPRESSION: 1. Mild airspace opacities at the lung bases, consistent with atelectasis versus pneumonia. 2. Tiny pleural effusions. 3. Emphysema. 4. Cardiomegaly. Reviewed, dictated and finalized at location A. IMPRESSION: 1. Mild airspace opacities at the lung bases, consistent with atelectasis versu s pneumonia. 2. Tiny pleural effusions. 3. Emphysema. 4. Cardiomegaly.
--- NOTE | ~2021-06-01 | XR_ITS ---
EXAMINATION: XR chest 1V portable EXAM DATE: 06/05/2021 06:03 INDICATION: Pneumonia. TECHNIQUE: Portable AP frontal chest x-ray was obtained. Comparison is made to prior examination from 06/03/2021. FINDINGS: The cardiac silhouette is enlarged. Scattered basilar airspace disease, atelectasis or pneu monia. There is no pneumothorax suspected. There are no pleural effusions. There are no bony erosions identified. IMPRESSION: Scattered bibasilar atelectasis or pneumonia. Reviewed, dictated and finalized at location A.
--- NOTE | ~2021-06-01 | XR_ITS ---
EXAMINATION: XR chest 1V portable EXAM DATE: 06/01/2021 12:06 INDICATION: Shortness of breath. TECHNIQUE: Portable AP frontal chest x-ray was obtained. Comparison is made to prior examination from 05/22/2021. FINDINGS: There is cardiomegaly. No confluent consolidation, pneumothorax or pleural effusion suspect ed. There is aortic arteriosclerosis. Chronic hyperinflation. There are bony degenerative changes. IMPRESSION: Cardiomegaly and hyperinflation unchanged. Reviewed, dictated and finalized at location B.
--- NOTE | 2021-06-01 11:41 | ED.EPISTAXIS ---
HPI - Epistaxis General Chief complaint: Epistaxis <Robert Booker APRN - Last Filed: 06/01/21 13:07> Stated complaint: nosebleed since 829 <Robert Booker APRN - Last Filed: 06/01/21 13:07> Time Seen by Provider: 06/01/21 11:25 <Robert Booker APRN - Last Filed: 06/01/21 13:07> History of Present Illness HPI Narrative: 85-year-old female presents the emergency room for evaluation of nosebleed that began at 8:00 this morning. Patient denies injury or trauma. Patient is accompanied by family member at the bedside. According to family member, patient was recently hospitalized for acute respiratory distress secondary to COPD exacerbation. Patient was discharged from the hospital approximately 1 week ago. Family member states that patient has had increased episodes of confusion, is concerned she may be developing urinary tract infection or worsening of her COPD. Patient has recently began wearing home oxygen <Robert Booker APRN - Last Filed: 06/01/21 13:07> Related Data Home medications: Home Medications Medication Instructions Recorded Confirmed Trelegy Ellipta 1 inhalation INHALATION DAILY PRN 05/22/21 05/30/21 diltiazem HCl 60 mg PO BID 05/22/21 05/30/21 <Robert Booker APRN - Last Filed: 06/01/21 13:07> Allergies/adverse reactions: Allergies Allergy/AdvReac Type Severity Reaction Status Date / Time No Known Allergies Allergy Mild Verified 06/01/21 11:33 <Robert Booker APRN - Last Filed: 06/01/21 13:07> Review of Systems Review of Systems: CONSTITUTIONAL: Denies fever, chills, or sweats. EYES: Denies visual changes, redness, or discharge. ENT: Reports epistaxis CARDIOVASCULAR: Denies chest pain, palpitations, or edema. RESPIRATORY: Reports shortness of breath GASTROINTESTINAL: Denies abdominal pain, nausea, vomiting, or diarrhea. GENITOURINARY: Denies dysuria or hematuria. SKIN: Denies rash or itching. MUSCULOSKELETAL: Denies back pain, joint pain, or myalgia. NEUROLOGIC: Denies headache, numbness, dizziness, or weakness. PSYCHIATRIC: Denies anxiety or depression. <Robert Booker, BENCH ASSEMBLER - Last Filed: 06/01/21 13:07> [facility] Past Medical History Medical History: Medical History Atrial fibrillation Chronic obstructive pulmonary disease Diastolic dysfunction Peripheral arterial disease Pulmonary hypertension <Robert Booker, BENCH ASSEMBLER - Last Filed: 06/01/21 13:07> Surgical History Surgical History: Surgical History History of cataract extraction History of facial surgery <Robert Booker, BENCH ASSEMBLER - Last Filed: 06/01/21 13:07> Family History Family History: Family History Father Cerebrovascular accident Mother Family history of malignant neoplasm of bone Family history of cardiovascular disease Diabetes mellitus Family history of malignant neoplasm Family history of lymphoma Sibling Family history of cardiovascular disease Son Diabetes mellitus <Robert Booker, BENCH ASSEMBLER - Last Filed: 06/01/21 13:07> Social History Social History: Social History Social History: Surrogate decision maker: Max Bernstein, son. Code status: Full code. Smoking packs per day: 1 Smoking cigarettes per day: 20.0 Years smoked: 45 Smoking pack-years: 45.00 Tobacco type: cigarettes Second hand tobacco smoke exposure: Yes Smoking end date: 10/29/00 Alcohol intake: current Drinks per week: 1 Substance use: never Substance use type: does not use Additional living arrangements comments: Assisted living at [facility]. Gender identity (if verbalized by the patient): Female Spiritual care concerns: No <Robert Booker, BENCH ASSEMBLER - Last Filed: 06/01/21 13:07> Exam Narrative: GENERAL: Well-
--- NOTE | 2021-06-01 11:54 | ECG_ITS ---
Measurements Intervals [place] Rate: 116 P: WA: 0 QRS: 3 QRSD: 81 T: 171 QT: 272 QTc: 379 Interpretive Statements ATRIAL FIBRILLATION WITH RAPID VENTRICULAR RESPONSE MODERATE VOLTAGE CRITERIA FOR LVH, CONSIDER NORMAL VARIANT [MEETS CRITERIA IN ONE OF: R(aVL), S(V1), R(V5), R(V5/V6)+S(V1)] ST DEVIATION AND MODERATE T-WAVE ABNORMALITY, CONSIDER LATERAL ISCHEMIA [-0.1+ mV T WAVE IN I/aVL/V5/V6] ABNORMAL ECG COMPARED TO ECG 05/22/2021 10:44:02 NO SIGNIFICANT CHANGES Electronically Signed On 06-01-2021 17:00:16 CDT by Robert Sinclair M.D.
[2021-06-01 12:04] LABS: Basophils Absolute Auto 0.1 K/mm3 (0.0-0.1); Basophils Percent Auto 0.6 % (0.2-1.2); Eosinophils Absolute Auto 0.2 K/mm3 (0-0.3); Eosinophils Percent Auto 0.6 % (0-4.4); Hematocrit 43.6 % (37.0-47.0); Hemoglobin 13.9 g/dL (12.0-15.0); Immature Granulocyte Absolute 0.73 K/mm3 (0.00-0.031); Immature Granulocyte Percent A 3.1 % (0-0.5); Lymphocytes Absolute Auto 2.06 K/mm3 (0.9-3.2); Lymphocytes Percent Auto 8.7 % (18.3-44.2); Mean Corpuscular HGB Conc 31.9 g/dl (32-36); Mean Corpuscular Hemoglobin 28.8 pg (26-34); Mean Corpuscular Volume 90.3 fl (80-100); Mean Platelet Volume 10.1 fl (7.4-10.4); Monocytes Absolute Auto 1.8 K/mm3 (0.1-0.6); Monocytes Percent Auto 7.6 % (2.6-8.5); Neutrophils Absolute Auto 18.7 K/mm3 (1.3-6.7); Neutrophils Percent Auto 79.4 % (45.5-73.1); Platelet Count Result 326 k/mm3 (150-375); Red Blood Count 4.83 M/mm3 (4.2-5.4); Red Cell Distribution Width 13.7 % (11.5-14.5); White Blood Count 23.6 K/mm3 (4.5-10.0)
[2021-06-01 12:15] LABS: INR 2.3; Partial Thromboplastin Time 33.4 SECONDS (22.3-36.8); Prothrombin Time 24.5 Seconds (11.1-14.7)
[2021-06-01 12:20] LABS: Alanine Aminotransferase 21 U/L (4-35); Albumin Level 3.6 g/dL (3.5-5.1); Alkaline Phosphatase 57 U/L (38-126); Anion Gap 5 mmol/L (8-16); Aspartate Amino Transferase 27 U/L (14-36); Bilirubin,Total 0.9 mg/dL (0.2-1.3); Blood Urea Nitrogen 39 mg/dL (7-17); Calcium 8.2 mg/dL (8.4-10.2); Carbon Dioxide 32 mmol/L (22-30); Chloride 100 mmol/L (98-107); Estimated Glomerular Filt Rate > 60; Glucose 165 mg/dL (65-110); Potassium 4.9 mmol/L (3.4-5.0); Sodium 137 mmol/L (137-145)
[2021-06-01 12:28] LABS: Platelet Estimate Adequate (Adequate)
[2021-06-01 12:29] LABS: Acanthocytes 1+ (NORMAL); Ovalocytes 2+ (NORMAL)
[2021-06-01 12:31] LABS: Appearance Urine Clear (Clear); Bilirubin Urine 1+ (Negative); Blood Urine 3+ (Negative); Color Urine Yellow (Yellow); Glucose Urine UA 1+ mg/dL (Negative); Ketones Urine Trace mg/dL (Negative); Leukocyte Esterase Ur Negative LEU/UL (Negative); Nitrate Urine Positive (Negative); Protein Urine 2+ mg/dL (Negative); Specific Grav Ur >= 1.030 (1.001-1.035); pH Urine 5.5 (5.0-9.0)
[2021-06-01 12:34] LABS: Troponin I 0.158 ng/mL (0.000-0.034)
[2021-06-01 12:38] LABS: Bacteria Urine 2+ /hpf; Mucus Urine Rare /lpf; RBC Urine 21-50 /hpf (0-2); Squamous Epithelial Cell Urine Many /hpf (Few)
[2021-06-01 12:40] LABS: Add Urine Microscopic? YES
[2021-06-01] MEDS: METOPROLOL TARTRATE INJ 5 MG/5 ML VIAL IV PUSH (12:54)
--- NOTE | 2021-06-01 13:25 | PM.CNCAR ---
Assessment and Plan Assessment and plan (1) Epistaxis: Code(s): R04.0 - Epistaxis Status: Acute (2) Elevated troponin: Code(s): R77.8 - Other specified abnormalities of plasma proteins Status: Acute Assessment and Plan: Monitor and follow to peak. No symptoms to suggest ACS. Likely due to UTI/Atrial fib with RVR/COPD. (3) Urinary tract infection: Qualifiers: Hematuria presence: with hematuria Urinary tract infection type: acute cystitis Qualified Code(s): N30.01 - Acute cystitis with hematuria Code(s): N39.0 - Urinary tract infection, site not specified Status: Acute Assessment and Plan: Manage as per hospitalist. (4) Confusion: Code(s): R41.0 - Disorientation, unspecified Status: Acute Assessment and Plan: Probably due to UTI. (5) Atrial fibrillation with rapid ventricular response: Code(s): I48.91 - Unspecified atrial fibrillation Status: Acute Assessment and Plan: Continue rate control medication. Her HR range 86-125 bpm. If no longer having nosebleeds, continue Xarelto 15 mg in evening with meal. (6) Chronic obstructive pulmonary disease: Code(s): J44.9 - Chronic obstructive pulmonary disease, unspecified Status: Acute (7) Peripheral arterial disease: Code(s): I73.9 - Peripheral vascular disease, unspecified Status: Acute Assessment and Plan: Stable. (8) Diastolic dysfunction: Code(s): I51.89 - Other ill-defined heart diseases Status: Acute Assessment and Plan: Stable. History of Present Illness History of Present Illness Consult date/time: 06/01/21 13:25 Reason for consult: Elevated troponin. Patient is a 85 yr old woman who is my regular cardiology patient presented to ER for nose bleed. She has a history of diastolic dysfunction, PAD, COPD, Atrial fibrillation, PAD, recent diagnosis of Alzheimer's. Her daughter in law is at bedside. Reports this morning she had nosebleed and was brought to ER for treatment. Her daughter in law states she noted some confusion in her yesterday also. She has chronic sob due to COPD. She lives at [place]. 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 Denies any palpitations, chest pain. 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 She lost her in August 2019. WBC 23.1. INR 2.3. Trop 0.151. EKG: Atrial fib with RVT at 116 bpm, LVH with ST-T changes. U/A shows some bacteria and nitrite and RBC's. Cardiovascular Procedures 05/23/21 Echo: EF 55-60%, mod LVH, diastolic dysfunction (E/e' 12), TAPSE 0.7 cm, severe LAE, mod KEMAR, mild MR, mild-mod TR/PI, RVSP 66 mmHg. Echo/MUGA:: Echo (EF 55-60%, mod biatrial enlargement, mod MR/TR, trace PI.) - 07/10/2017 Echo (EF 60%, mod LVH, patient is in atrial fib; tissue doppler is not performed, mod LAE, severe KEMAR, mild-mod MR, mild AI, mod TR, RVSP 67 mmHg, grade I atheroma in ant/post aortic root.) - 12/11/2016 Electrophysiology:: 05/23/21 EKG: Atrial fib at 124 bpm, ST-T wave abnormality- consider ischemia. 04/28/20 EKG: Atrial fibrillation at 89 bpm. EKG (Atrial fibrillation at 100 bpm, ST-T wave abnormality- consider anterolateral/lat ischemia.) - 12/14/2016 Stress Tests:: CXR (Small bilateral pleural effusions.) - 07/10/2017 MPI (Lexisan myoview: Negative for ischemia.) - 12/21/2016 SHREYA (SHREYA right 1.23 and left 1.19; TBI 0.28 on right and 0.24 on left (normal >0.65) suggestive of PAD. Triphasic waveforms throughout except biphasic at ankle.) - 09/04/2017 Venous Duplex (Negative for DVT bilaterally.) - 09/04/2017 Carotid Duplex (16-49% right ICA; and 50% left ICA stenosis.) - 12/18/2016 Carotid Duplex (<50% right ICA; 50-69% left ICA stenosis.) - 08/18/2012 Reason For Visit: nosebleed since 0830 Review of Systems Review of Systems: All systems reviewed & are unremarkable except as noted in HPI and below Constitutional: Constitutional: Reports as per HPIVitaliy
[2021-06-01 13:48] LABS: Lactic Acid Reflex 2.1 mmol/L (0.7-2.1)
[2021-06-01 14:16] LABS: SARS-CoV-2 RNA PCR Negative
[2021-06-01 14:48] LABS: Troponin I 0.179 ng/mL (0.000-0.034)
--- NOTE | 2021-06-01 15:53 | ADMGEN ---
This patient, Danielle Bernstein, was admitted to IMU Room 206-01. Patient/family oriented to hospital policies and general routines including ID bracelet, bed and alarms, visiting hours, pain management, procedures, bathroom and other care routines, personal items, smoking policy, room service/diet, and visiting hours. Information on how to activate the Rapid Response Team has been discussed. Patient/Family are encouraged to report perceived risks to care and to ask questions if they do not understand what they are told or what they should do.
[2021-06-01 16:36] LABS: Reflex Lactic Acid Yes or No Add Lactic
[2021-06-01 17:13] LABS: Lactic Acid 2.2 mmol/L (0.7-2.1)
[2021-06-01 17:37] LABS: Troponin I 0.179 ng/mL (0.000-0.034)
[2021-06-01 19:07] LABS: Hematocrit 43.2 % (37.0-47.0); Hemoglobin 13.2 g/dL (12.0-15.0)
--- NOTE | 2021-06-01 19:53 | PM.IMHP ---
H&P: HPI History of Present Illness Date/Time: 06/01/21 19:54 Chief Complaint: Epistaxis Narrative: Patient is an 85-year-old female with a past medical history of atrial fibrillation, COPD, pulmonary hypertension who presented to the ED with complaints of epistasis that began at 8:00 a.m. this morning. Patient denies any trauma or injury as she was accompanied by her daughter in law. She stated that she has been little nauseated and short of breath since all of this started. They did try cool compress and to hold her head back however that did not help. Patient was on Xarelto and could be the cause for her bloody nose today. Patient denies any hemoptysis, melena, hematemesis. She denies any sweats fevers or chills. She did state that she has felt a little bit more confused than normal today. She also stated that she was just here for COPD exacerbation and I UTI. She denies any swelling of the legs. Her son was in there as she was alert and oriented however she kept saying that she has been more confused lately. Heart rate is noted to be elevated. UA looks infectious. WBC 23.6. Trops have been on trend. Patient is being admitted to the hospitalist service under observation. Review of Systems Review of Systems: All systems reviewed & are unremarkable except as noted in HPI and below PMFSH Past Medical History Medical History Atrial fibrillation Chronic obstructive pulmonary disease Diastolic dysfunction Peripheral arterial disease Pulmonary hypertension Surgical History Surgical History History of cataract extraction History of facial surgery Family History Family History Father Cerebrovascular accident Mother Family history of malignant neoplasm of bone Family history of cardiovascular disease Diabetes mellitus Family history of malignant neoplasm Family history of lymphoma Sibling Family history of cardiovascular disease Congestive heart failure Son Diabetes mellitus Social History Social History (Updated 06/01/21 @ 20:16 by AVRIL Butcher) Social History: Surrogate decision maker: Max Bernstein, dari. Code status: DNR/DNI Smoking packs per day: 1 Smoking cigarettes per day: 20.0 Years smoked: 40 Smoking pack-years: 40.00 Smoking status: Former smoker Tobacco type: cigarettes Second hand tobacco smoke exposure: Yes Smoking end date: 10/29/00 Alcohol intake: never Drinks per week: 1 Substance use: never Substance use type: does not use Living arrangements: assisted living Additional living arrangements comments: Assisted living at [facility] in [place]. Occupation/Education: retired Gender identity (if verbalized by the patient): Female Spiritual care concerns: No Meds Home Medications and Allergies Home Medications Medication Instructions Recorded Confirmed Type albuterol sulfate 90 mcg/actuation 2 puff INHALATION Q4H PRN #8.5 gm 02/25/19 06/01/21 Rx aerosol inhaler Trelegy Ellipta 1 inhalation INHALATION DAILY 05/22/21 06/01/21 History diltiazem HCl 60 mg PO Q12H 05/22/21 06/01/21 History digoxin 125 mcg PO QAM 30 Days #30 tablet 05/26/21 06/01/21 Rx metoprolol tartrate 25 mg PO Q12HR 60 Days #120 tablet 05/26/21 06/01/21 Rx ondansetron 4 mg PO Q8H PRN #60 tablet 05/26/21 06/01/21 Rx pantoprazole 40 mg PO QAM 30 Days #30 tablet 05/26/21 06/01/21 Rx prednisone 10 mg PO .ASDIR #21 tablet 05/26/21 06/01/21 Rx Xarelto 15 mg PO HS 06/01/21 06/01/21 History potassium chloride 10 meq PO HS 06/01/21 06/01/21 History Allergies Allergy/AdvReac Type Severity Reaction Status Date / Time No Known Allergies Allergy Mild Verified 06/01/21 11:33 Vital Signs Vital Signs - 24 hr 06/01/21 11:23 06/01/21 11:27 06/01/21 11:30 Temperature Pulse Rate Res
[2021-06-01] MEDS: METOPROLOL TARTRATE 25 MG TABLET PO (20:14)
[2021-06-01] MEDS: POTASSIUM CHLORIDE 10 MEQ TABLET.ER PO (20:14)
[2021-06-01] MEDS: dilTIAZem HCL 60 MG TABLET PO (20:30)
[2021-06-02] VITALS (16 sets, daily range): BP systolic 101–143; BP diastolic 48–97; PULSE 41–126; RESP 16–100; TEMP 36.1–36.4; O2SAT 91–100
[2021-06-02 05:58] LABS: Alanine Aminotransferase 18 U/L (4-35); Albumin Level 3.3 g/dL (3.5-5.1); Alkaline Phosphatase 58 U/L (38-126); Anion Gap 4 mmol/L (8-16); Aspartate Amino Transferase 21 U/L (14-36); Bilirubin,Total 0.7 mg/dL (0.2-1.3); Blood Urea Nitrogen 48 mg/dL (7-17); Carbon Dioxide 33 mmol/L (22-30); Chloride 101 mmol/L (98-107); Estimated CRCL calculation 50 ml/min; Estimated Glomerular Filt Rate > 60; Glucose 141 mg/dL (65-110); Magnesium 2.4 mg/dL (1.6-2.3); Potassium 4.5 mmol/L (3.4-5.0); Sodium 138 mmol/L (137-145)
[2021-06-02 06:03] LABS: Basophils Absolute Auto 0.1 K/mm3 (0.0-0.1); Basophils Percent Auto 0.3 % (0.2-1.2); Eosinophils Absolute Auto 0.1 K/mm3 (0-0.3); Eosinophils Percent Auto 0.7 % (0-4.4); Hematocrit 41.8 % (37.0-47.0); Hemoglobin 12.7 g/dL (12.0-15.0); Immature Granulocyte Absolute 0.42 K/mm3 (0.00-0.031); Immature Granulocyte Percent A 2.2 % (0-0.5); Lymphocytes Percent Auto 9.6 % (18.3-44.2); Mean Corpuscular HGB Conc 30.4 g/dl (32-36); Mean Corpuscular Hemoglobin 28.5 pg (26-34); Mean Corpuscular Volume 93.7 fl (80-100); Mean Platelet Volume 10.3 fl (7.4-10.4); Monocytes Absolute Auto 1.4 K/mm3 (0.1-0.6); Monocytes Percent Auto 7.5 % (2.6-8.5); Neutrophils Percent Auto 79.7 % (45.5-73.1); Platelet Count Result 281 k/mm3 (150-375); Red Blood Count 4.46 M/mm3 (4.2-5.4); Red Cell Distribution Width 14.1 % (11.5-14.5); White Blood Count 18.8 K/mm3 (4.5-10.0)
--- NOTE | 2021-06-02 07:37 | PM.PNCARD ---
Progress Note: A&P Assessment and Plan (1) Epistaxis: Code(s): R04.0 - Epistaxis Status: Acute Assessment and Plan: Stable. (2) Elevated troponin: Code(s): R77.8 - Other specified abnormalities of plasma proteins Status: Acute Assessment and Plan: Troponin peaked at 0.179. No symptoms to suggest ACS. Likely due to UTI/Atrial fib with RVR/COPD. (3) Urinary tract infection: Qualifiers: Hematuria presence: with hematuria Urinary tract infection type: acute cystitis Qualified Code(s): N30.01 - Acute cystitis with hematuria Code(s): N39.0 - Urinary tract infection, site not specified Status: Acute Assessment and Plan: Manage as per hospitalist. (4) Confusion: Code(s): R41.0 - Disorientation, unspecified Status: Acute Assessment and Plan: Probably due to UTI. (5) Atrial fibrillation with rapid ventricular response: Code(s): I48.91 - Unspecified atrial fibrillation Status: Acute Assessment and Plan: Continue rate control medication. Her HR range 86-144 bpm. If no longer having nosebleeds, continue Xarelto 15 mg in evening with meal. Then, june d/c home from cardiology standpoint and f/u with me in 1 week. (6) Chronic obstructive pulmonary disease: Code(s): J44.9 - Chronic obstructive pulmonary disease, unspecified Status: Acute (7) Peripheral arterial disease: Code(s): I73.9 - Peripheral vascular disease, unspecified Status: Acute Assessment and Plan: Stable. (8) Diastolic dysfunction: Code(s): I51.89 - Other ill-defined heart diseases Status: Acute Assessment and Plan: Stable. Subjective Date/time seen: 06/02/21 07:37 Denies chest pain. Chronic sob. No more nosebleed. Exam Const: General: cooperative, healthy appearing and comfortable HENMT: General nose exam: Other nasal findings present (nasal tamponade in place with no bleeding) Resp: Auscultation: no crackles, no rales, no rhonchi, no wheezes and diminished lung sounds Cardio: Jugular venous distension: no JVD Rate: tachycardic Rhythm: abnormal rhythm Heart sounds: no murmurs Peripheral pulses: dorsalis pedis present GI: GI Palp: No abdominal tenderness and Yes Soft to palpation Neuro: General: oriented to person, oriented to place and oriented to time Extrem: Right lower extremity: no edema Left lower extremity: no edema Objective Data Vital Signs Vital Signs: Vital Signs - 24 hr 06/01/21 11:23 06/01/21 11:27 06/01/21 11:30 Temperature Pulse Rate Respiratory Rate 16 Blood Pressure 122/63 122/63 Pulse Oximetry 90 06/01/21 11:31 06/01/21 12:54 06/01/21 12:57 Temperature Pulse Rate 118 H 132 H 122 H Respiratory Rate Blood Pressure 136/66 Pulse Oximetry 96 06/01/21 15:17 06/01/21 16:00 06/01/21 16:14 Temperature 97.2 F L Pulse Rate 112 H 86 94 Respiratory Rate 24 H 20 Blood Pressure 110/93 H 143/64 H Pulse Oximetry 97 93 93 06/01/21 18:00 06/01/21 19:51 06/01/21 20:00 Temperature 97.4 F L Pulse Rate 121 H 103 H 124 H Respiratory Rate 20 Blood Pressure 111/75 Pulse Oximetry 98 06/01/21 20:14 06/01/21 22:00 06/02/21 00:00 Temperature 97.6 F Pulse Rate 69 114 H 74 Respiratory Rate 18 Blood Pressure 132/78 Pulse Oximetry 100 06/02/21 02:00 06/02/21 04:00 Temperature 97.2 F L Pulse Rate 103 H 110 H Respiratory Rate 100 H Blood Pressure 101/60 Pulse Oximetry Intake/Output Intake/Output: Intake & Output 05/30/21 05/31/21 06/01/21 06/02/21 23:59 23:59 23:59 23:59 Intake Total 420 250 Balance 420 250 Meds/Results Medications: Active Medications Generic Name Dose Route Start Last Admin Trade Name Freq PRN Reason Stop Dose Admin Digoxin 125 mcg 06/02/21 09:00 Digoxin Tab 125 Mcg Tablet PO [facility] Diltiazem HCl 60 mg 06/01/21 21:00 06/01/21 20:30 Diltiazem Hcl
[2021-06-02] MEDS: PANTOPRAZOLE 40 MG TABLET PO (08:51)
[2021-06-02] MEDS: METOPROLOL TARTRATE 25 MG TABLET PO ×2 (08:51→22:43)
[2021-06-02] MEDS: dilTIAZem HCL 60 MG TABLET PO ×2 (08:52→22:44)
[2021-06-02] MEDS: DIGOXIN TAB 125 MCG TABLET PO (08:52)
[2021-06-02] MEDS: FLUTICASONE/UMECLIDIN/VILANTER 100-62.5-25 MCG ELLIPTA 1 PUFF INHALATION (09:16)
[2021-06-02] MEDS: TOLNAFTATE 1% POWDER 45 GM BTL 1 APPLIC TOPICAL ×2 (14:02→22:43)
--- NOTE | 2021-06-02 17:31 | P.PNIM_ITS ---
Progress Note: A&P Assessment and Plan (1) Epistaxis: Code(s): R04.0 - Epistaxis Status: Acute Assessment and Plan: * Reports bleeding started this morning at 8:00 a.m. * H&H remained stable * Nasal rocket placed by ED * Trend labs * ENT consult 06/02/2021 interval history: patient presented with epistaxis most likely secondary to anticoagulation, emergency department rhino rocket was placed in left nostril, anticoagulation will hold, will keep the renal rocket for 48 hours and remove it and assess the patient for any bleeding and then resume anticoagulation, with elevated tropes seen by her strike off machine operator does not suspect acute plaque rupture most likely demand ischemia due to epistaxis and stress, patient also complains of rash under her right breast her nurse Mulu is prese nt in the room patient has candidiasis will apply nystatin and monitor, patient with a urine suspicious for UTI patient started on ceftriaxone will follow-up on urine culture, continue to monitor (2) Elevated troponin: Code(s): R77.8 - Other specified abnormalities of plasma proteins Status: Acute Assessment and Plan: * Troponins elevated above baseline 0.158, 0.179, 0.179 * Baseline troponins are 0.04 * Cardiology consulted * Could be secondary to uncontrolled heart rate and bleeding * Tele monitor (3) Essential hypertension: Code(s): I10 - Essential (primary) hypertension Status: Acute Assessment and Plan: * Blood pressure 111/75 * Continue home metoprolol * Trend blood pressure * Adjust therapy as indicated (4) Atrial fibrillation: Code(s): I48.91 - Unspecified atrial fibrillation Status: Acute Assessment and Plan: * Rate is uncontrolled * Continue metoprolol 25 q.12, digoxin 125 mcg p.o. q.a.m., Cardizem 60 mg q.12 * Tele monitor * Trend rate * Adjust therapy as indicated * Cardiology consulted (5) Abnormal urinalysis: Code(s): R82.90 - Unspecified abnormal findings in urine Status: Acute Assessment and Plan: * UA shows 3+ blood, positive nitrates, negative leukocyte esterase, wbc's 7-9, urine bacteria 2+ * Continue ceftriaxone for now * Urine culture pending * Reports confusion and wbc's are 23.6 * Adjust therapy according to culture results (6) Leukocytosis: Code(s): D72.829 - Elevated white blood cell count, unspecified Status: Acute Assessment and Plan: * WBCs elevated at 23.6 * IV ceftriaxone on board * Chest x-ray does not show any signs of infection * UA possibly infectious * Trend labs * Labs in a.m. Subjective Date/time seen: 06/02/21 17:31 Chief Complaint: Epistaxis Narrative: Patient is an 85-year-old female with a past medical history of atrial fibrillation, COPD, pulmonary hypertension who presented to the ED with complaints of epistasis that began at 8:00 a.m. this morning. Patient denies any trauma or injury as she was accompanied by her daughter in law. She stated that she has been little nauseated and short of breath since all of this started. They did try cool compress and to hold her head back however that did not help. Patient was on Xarelto and could be the cause for her bloody nose today. Patient denies any hemoptysis, melena, hematemesis. She denies any sweats fevers or chills. She did state that she has felt a little bit more confused than normal today. She also stated that she was just here for COPD exacerbation and I UTI. She denies a
--- NOTE | 2021-06-02 17:31 | PM.IMPN ---
Progress Note: A&P Assessment and Plan (1) Epistaxis: Code(s): R04.0 - Epistaxis Status: Acute Assessment and Plan: Reports bleeding started this morning at 8:00 a.m. H&H remained stable Nasal rocket placed by ED Trend labs ENT consult 06/02/2021 interval history: patient presented with epistaxis most likely secondary to anticoagulation, emergency department rhino rocket was placed in left nostril, anticoagulation will hold, will keep the renal rocket for 48 hours and remove it and assess the patient for any bleeding and then resume anticoagulation, with elevated tropes seen by her utilization supervisor does not suspect acute plaque rupture most likely demand ischemia due to epistaxis and stress, patient also complains of rash under her right breast her nurse Mulu is present in the room patient has candidiasis will apply nystatin and monitor, patient with a urine suspicious for UTI patient started on ceftriaxone will follow-up on urine culture, continue to monitor (2) Elevated troponin: Code(s): R77.8 - Other specified abnormalities of plasma proteins Status: Acute Assessment and Plan: Troponins elevated above baseline 0.158, 0.179, 0.179 Baseline troponins are 0.04 Cardiology consulted Could be secondary to uncontrolled heart rate and bleeding Tele monitor (3) Essential hypertension: Code(s): I10 - Essential (primary) hypertension Status: Acute Assessment and Plan: Blood pressure 111/75 Continue home metoprolol Trend blood pressure Adjust therapy as indicated (4) Atrial fibrillation: Code(s): I48.91 - Unspecified atrial fibrillation Status: Acute Assessment and Plan: Rate is uncontrolled Continue metoprolol 25 q.12, digoxin 125 mcg p.o. q.a.m., Cardizem 60 mg q.12 Tele monitor Trend rate Adjust therapy as indicated Cardiology consulted (5) Abnormal urinalysis: Code(s): R82.90 - Unspecified abnormal findings in urine Status: Acute Assessment and Plan: UA shows 3+ blood, positive nitrates, negative leukocyte esterase, wbc's 7-9, urine bacteria 2+ Continue ceftriaxone for now Urine culture pending Reports confusion and wbc's are 23.6 Adjust therapy according to culture results (6) Leukocytosis: Code(s): D72.829 - Elevated white blood cell count, unspecified Status: Acute Assessment and Plan: WBCs elevated at 23.6 IV ceftriaxone on board Chest x-ray does not show any signs of infection UA possibly infectious Trend labs Labs in a.m. Subjective Date/time seen: 06/02/21 17:31 Chief Complaint: Epistaxis Narrative: Patient is an 85-year-old female with a past medical history of atrial fibrillation, COPD, pulmonary hypertension who presented to the ED with complaints of epistasis that began at 8:00 a.m. this morning. Patient denies any trauma or injury as she was accompanied by her daughter in law. She stated that she has been little nauseated and short of breath since all of this started. They did try cool compress and to hold her head back however that did not help. Patient was on Xarelto and could be the cause for her bloody nose today. Patient denies any hemoptysis, melena, hematemesis. She denies any sweats fevers or chills. She did state that she has felt a little bit more confused than normal today. She also stated that she was just here for COPD exacerbation and I UTI. She denies any swelling of the legs. Her son was in there as she was alert and oriented however she kept saying that she has been more confused lately. Heart rate is noted to be elevated. UA looks infectious. WBC 23.6. Trops have been on trend. 06/02/2021 interval history: patient presented with epistaxis most likely secondary to anticoagulation, emergency department rhino rocket was placed in left nostril, anticoagulation will hold, will keep the renal rocket for 48
[2021-06-02] MEDS: POTASSIUM CHLORIDE 10 MEQ TABLET.ER PO (22:44)
[2021-06-03] VITALS (18 sets, daily range): BP systolic 98–124; BP diastolic 50–91; PULSE 63–135; RESP 16–26; TEMP 36.1–36.6; O2SAT 95–100
--- NOTE | 2021-06-03 02:42 | PC.NURSE ---
Pt. heartrate is unstable afib with rvr HR 40-102 bpm pt. asymptomatic with no changes in breathing pallor or pain status. Dr. Morales called and informed. Informed Dr. Morales of pts. DNR status. Dr. Morales ordered to monitor the pt. closely for and changes. Will continue to monitor patient angelo for changes.
[2021-06-03] MEDS: dilTIAZem HCL 60 MG TABLET PO ×2 (08:26→20:53)
[2021-06-03] MEDS: DIGOXIN TAB 125 MCG TABLET PO (08:26)
[2021-06-03] MEDS: TOLNAFTATE 1% POWDER 45 GM BTL 1 APPLIC TOPICAL ×2 (08:26→20:53)
[2021-06-03] MEDS: METOPROLOL TARTRATE 25 MG TABLET PO ×2 (08:26→20:53)
[2021-06-03] MEDS: PANTOPRAZOLE 40 MG TABLET PO (08:26)
[2021-06-03] MEDS: FLUTICASONE/UMECLIDIN/VILANTER 100-62.5-25 MCG ELLIPTA 1 PUFF INHALATION (08:28)
[2021-06-03] MEDS: cefTRIAXone 2 GM in SODIUM CHLORIDE 0.9% IV 100 ML 200 ML IVPB (09:44)
--- NOTE | 2021-06-03 12:37 | P.PNIM_ITS ---
Progress Note: A&P Assessment and Plan (1) Epistaxis: Code(s): R04.0 - Epistaxis Status: Acute Assessment and Plan: * Reports bleeding started this morning at 8:00 a.m. * H&H remained stable * Nasal rocket placed by ED * Trend labs * ENT consult 06/02/2021 interval history: patient presented with epistaxis most likely secondary to anticoagulation, emergency department rhino rocket was placed in left nostril, anticoagulation will hold, will keep the renal rocket for 48 hours and remove it and assess the patient for any bleeding and then resume anticoagulation, with elevated tropes seen by her [facility] home [facility] does not suspect acute plaque rupture most likely demand ischemia due to epistaxis and stress, patient also complains of rash under her right breast her nurse Mulu is prese nt in the room patient has candidiasis will apply nystatin and monitor, patient with a urine suspicious for UTI patient started on ceftriaxone will follow-up on urine culture, continue to monitor. 06/03/2021 interval history: patient presented with epistaxis most likely secondary to anticoagulation, in emergency department rhino rocket was placed in left nostril, anticoagulation will hold, will keep the renal rocket for 48 hours and remove it on Saturday and assess the patient for any bleeding and then resume anticoagulation, with elevated tropes seen by her [facility] does not suspect acute plaque rupture most likely demand ischemia due to epistaxis and stress, Patient with history of atrial fibrillation the rate is trending up will consult her [facility] further recommendation, patient also complains of rash under her right breast her nurse Mulu is present in the room patient has candidiasis will apply nystatin and monitor, patient with a urine suspicious for UTI urine culture is growing E coli sensitive to ceftriaxone will continue, chest x-ray concerning for pneumonia will add doxycycline and continue ceftriaxone. (2) Elevated troponin: Code(s): R77.8 - Other specified abnormalities of plasma proteins Status: Acute Assessment and Plan: * Troponins elevated above baseline 0.158, 0.179, 0.179 * Baseline troponins are 0.04 * Cardiology consulted * Could be secondary to uncontrolled heart rate and bleeding * Tele monitor (3) Essential hypertension: Code(s): I10 - Essential (primary) hypertension Status: Acute Assessment and Plan: * Blood pressure 111/75 * Continue home metoprolol * Trend blood pressure * Adjust therapy as indicated (4) Atrial fibrillation: Code(s): I48.91 - Unspecified atrial fibrillation Status: Acute Assessment and Plan: * Rate is uncontrolled * Continue metoprolol 25 q.12, digoxin 125 mcg p.o. q.a.m., Cardizem 60 mg q.12 * Tele monitor * Trend rate * Adjust therapy as indicated * Cardiology consulted (5) Abnormal urinalysis: Code(s): R82.90 - Unspecified abnormal findings in urine Status: Acute Assessment and Plan: * UA shows 3+ blood, positive nitrates, negative leukocyte esterase, wbc's 7-9, urine bacteria 2+ * Continue ceftriaxone for now * Urine culture pending * Reports confusion and wbc's are 23.6 * Adjust therapy according to culture results (6) Leukocytosis: Code(s): D72.829 - Elevated white blood cell count, unspecified Status: Acute Assessment and Plan: * WBCs elevated at 23.6 * IV ceftriaxone on board * Chest x-ray does not show any signs of infection * UA possibly infectious
--- NOTE | 2021-06-03 12:37 | PM.IMPN ---
Progress Note: A&P Assessment and Plan (1) Epistaxis: Code(s): R04.0 - Epistaxis Status: Acute Assessment and Plan: Reports bleeding started this morning at 8:00 a.m. H&H remained stable Nasal rocket placed by ED Trend labs ENT consult 06/02/2021 interval history: patient presented with epistaxis most likely secondary to anticoagulation, emergency department rhino rocket was placed in left nostril, anticoagulation will hold, will keep the renal rocket for 48 hours and remove it and assess the patient for any bleeding and then resume anticoagulation, with elevated tropes seen by her tab machine operator does not suspect acute plaque rupture most likely demand ischemia due to epistaxis and stress, patient also complains of rash under her right breast her nurse Mulu is present in the room patient has candidiasis will apply nystatin and monitor, patient with a urine suspicious for UTI patient started on ceftriaxone will follow-up on urine culture, continue to monitor. 06/03/2021 interval history: patient presented with epistaxis most likely secondary to anticoagulation, in emergency department rhino rocket was placed in left nostril, anticoagulation will hold, will keep the renal rocket for 48 hours and remove it on Saturday and assess the patient for any bleeding and then resume anticoagulation, with elevated tropes seen by her tab machine operator does not suspect acute plaque rupture most likely demand ischemia due to epistaxis and stress, Patient with history of atrial fibrillation the rate is trending up will consult her tab machine operator further recommendation, patient also complains of rash under her right breast her nurse Mulu is present in the room patient has candidiasis will apply nystatin and monitor, patient with a urine suspicious for UTI urine culture is growing E coli sensitive to ceftriaxone will continue, chest x-ray concerning for pneumonia will add doxycycline and continue ceftriaxone. (2) Elevated troponin: Code(s): R77.8 - Other specified abnormalities of plasma proteins Status: Acute Assessment and Plan: Troponins elevated above baseline 0.158, 0.179, 0.179 Baseline troponins are 0.04 Cardiology consulted Could be secondary to uncontrolled heart rate and bleeding Tele monitor (3) Essential hypertension: Code(s): I10 - Essential (primary) hypertension Status: Acute Assessment and Plan: Blood pressure 111/75 Continue home metoprolol Trend blood pressure Adjust therapy as indicated (4) Atrial fibrillation: Code(s): I48.91 - Unspecified atrial fibrillation Status: Acute Assessment and Plan: Rate is uncontrolled Continue metoprolol 25 q.12, digoxin 125 mcg p.o. q.a.m., Cardizem 60 mg q.12 Tele monitor Trend rate Adjust therapy as indicated Cardiology consulted (5) Abnormal urinalysis: Code(s): R82.90 - Unspecified abnormal findings in urine Status: Acute Assessment and Plan: UA shows 3+ blood, positive nitrates, negative leukocyte esterase, wbc's 7-9, urine bacteria 2+ Continue ceftriaxone for now Urine culture pending Reports confusion and wbc's are 23.6 Adjust therapy according to culture results (6) Leukocytosis: Code(s): D72.829 - Elevated white blood cell count, unspecified Status: Acute Assessment and Plan: WBCs elevated at 23.6 IV ceftriaxone on board Chest x-ray does not show any signs of infection UA possibly infectious Trend labs Labs in a.m. Subjective Date/time seen: 06/03/21 12:37 06/02/2021 interval history: patient presented with epistaxis most likely secondary to anticoagulation, emergency department rhino rocket was placed in left nostril, anticoagulation will hold, will keep the renal rocket for 48 hours and remove it and assess the patient for any bleeding and then resume anticoagulation, with elevated tropes seen by
[2021-06-03] MEDS: POTASSIUM CHLORIDE 10 MEQ TABLET.ER PO (20:53)
[2021-06-04] VITALS (17 sets, daily range): BP systolic 99–116; BP diastolic 54–69; PULSE 86–130; RESP 18–24; TEMP 36.3–36.7; O2SAT 94–100
[2021-06-04 04:28] LABS: Hematocrit 35.5 % (37.0-47.0); Hemoglobin 10.9 g/dL (12.0-15.0); Mean Corpuscular HGB Conc 30.7 g/dl (32-36); Mean Corpuscular Hemoglobin 28.6 pg (26-34); Mean Corpuscular Volume 93.2 fl (80-100); Mean Platelet Volume 9.7 fl (7.4-10.4); Platelet Count Result 195 k/mm3 (150-375); Red Blood Count 3.81 M/mm3 (4.2-5.4); Red Cell Distribution Width 14.4 % (11.5-14.5); White Blood Count 16.6 K/mm3 (4.5-10.0)
[2021-06-04 05:01] LABS: Anion Gap 1 mmol/L (8-16); Blood Urea Nitrogen 24 mg/dL (7-17); Calcium 7.8 mg/dL (8.4-10.2); Carbon Dioxide 31 mmol/L (22-30); Chloride 105 mmol/L (98-107); Estimated CRCL calculation 50 ml/min; Estimated Glomerular Filt Rate > 60; Glucose 143 mg/dL (65-110); Potassium 4.4 mmol/L (3.4-5.0); Sodium 137 mmol/L (137-145)
[2021-06-04] MEDS: METOPROLOL TARTRATE 25 MG TABLET PO ×2 (08:36→22:05)
[2021-06-04] MEDS: dilTIAZem HCL 60 MG TABLET PO ×2 (08:36→22:05)
[2021-06-04] MEDS: PANTOPRAZOLE 40 MG TABLET PO (08:37)
[2021-06-04] MEDS: TOLNAFTATE 1% POWDER 45 GM BTL 1 APPLIC TOPICAL ×2 (08:37→22:06)
[2021-06-04] MEDS: DIGOXIN TAB 125 MCG TABLET PO (08:37)
[2021-06-04] MEDS: cefTRIAXone 2 GM in SODIUM CHLORIDE 0.9% IV 100 ML 200 ML IVPB (08:37)
[2021-06-04] MEDS: FLUTICASONE/UMECLIDIN/VILANTER 100-62.5-25 MCG ELLIPTA 1 PUFF INHALATION (09:16)
--- NOTE | 2021-06-04 11:48 | P.PNIM_ITS ---
Progress Note: A&P Assessment and Plan (1) Epistaxis: Code(s): R04.0 - Epistaxis Status: Acute Assessment and Plan: * Reports bleeding started this morning at 8:00 a.m. * H&H remained stable * Nasal rocket placed by ED * Trend labs * ENT consult 06/02/2021 interval history: patient presented with epistaxis most likely secondary to anticoagulation, emergency department rhino rocket was placed in left nostril, anticoagulation will hold, will keep the renal rocket for 48 hours and remove it and assess the patient for any bleeding and then resume anticoagulation, with elevated tropes seen by her allergist immunologist does not suspect acute plaque rupture most likely demand ischemia due to epistaxis and stress, patient also complains of rash under her right breast her nurse Mulu is prese nt in the room patient has candidiasis will apply nystatin and monitor, patient with a urine suspicious for UTI patient started on ceftriaxone will follow-up on urine culture, continue to monitor. 06/03/2021 interval history: patient presented with epistaxis most likely secondary to anticoagulation, in emergency department rhino rocket was placed in left nostril, anticoagulation will hold, will keep the renal rocket for 48 hours and remove it on Saturday and assess the patient for any bleeding and then resume anticoagulation, with elevated tropes seen by her allergist immunologist does not suspect acute plaque rupture most likely demand ischemia due to epistaxis and stress, Patient with history of atrial fibrillation the rate is trending up will consult her allergist immunologist further recommendation, patient also complains of rash under her right breast her nurse Mulu is present in the room patient has candidiasis will apply nystatin and monitor, patient with a urine suspicious for UTI urine culture is growing E coli sensitive to ceftriaxone will continue, chest x-ray concerning for pneumonia will add doxycycline and continue ceftriaxone. 06/04/2021 interval history: patient presented with epistaxis most likely secondary to anticoagulation, in emergency department rhino rocket was placed in left nostril, anticoagulation will hold, will keep the renal rocket for 48 hours and remove it on Saturday and assess the patient for any bleeding and then resume anticoagulation, with elevated tropes seen by her allergist immunologist does not suspect acute plaque rupture most likely demand ischemia due to epistaxis and stress, Patient with history of atrial fibrillation the rate is trending up will consult her allergist immunologist further recommendation, patient also complains of rash under her right breast her nurse Mulu is present in the room patient has candidiasis will apply nystatin and monitor, patient with a urine suspicious for UTI urine culture is growing E coli sensitive to ceftriaxone will continue, chest x-ray concerning for pneumonia will add doxycycline and continue ceftriaxone will CXR tomorrow. (2) Elevated troponin: Code(s): R77.8 - Other specified abnormalities of plasma proteins Status: Acute Assessment and Plan: * Troponins elevated above baseline 0.158, 0.179, 0.179 * Baseline troponins are 0.04 * Cardiology consulted * Could be secondary to uncontrolled heart rate and bleeding * Tele monitor (3) Essential hypertension: Code(s): I10 - Essential (primary) hypertension Status: Acute Assessment and Plan: * Blood pressure 111/75 * Continue home metoprolol * Trend blood pressure * Adjust therapy as indicated (4) Atrial fibrillation: Code(s): I48.91 - Unspecified atrial fibrillation Status: Acute Assessment and Roseanna
--- NOTE | 2021-06-04 11:48 | PM.IMPN ---
Progress Note: A&P Assessment and Plan (1) Epistaxis: Code(s): R04.0 - Epistaxis Status: Acute Assessment and Plan: Reports bleeding started this morning at 8:00 a.m. H&H remained stable Nasal rocket placed by ED Trend labs ENT consult 06/02/2021 interval history: patient presented with epistaxis most likely secondary to anticoagulation, emergency department rhino rocket was placed in left nostril, anticoagulation will hold, will keep the renal rocket for 48 hours and remove it and assess the patient for any bleeding and then resume anticoagulation, with elevated tropes seen by her [employer] financial developer does not suspect acute plaque rupture most likely demand ischemia due to epistaxis and stress, patient also complains of rash under her right breast her nurse Mulu is present in the room patient has candidiasis will apply nystatin and monitor, patient with a urine suspicious for UTI patient started on ceftriaxone will follow-up on urine culture, continue to monitor. 06/03/2021 interval history: patient presented with epistaxis most likely secondary to anticoagulation, in emergency department rhino rocket was placed in left nostril, anticoagulation will hold, will keep the renal rocket for 48 hours and remove it on Saturday and assess the patient for any bleeding and then resume anticoagulation, with elevated tropes seen by her [employer] financial developer does not suspect acute plaque rupture most likely demand ischemia due to epistaxis and stress, Patient with history of atrial fibrillation the rate is trending up will consult her [employer] financial developer further recommendation, patient also complains of rash under her right breast her nurse Mulu is present in the room patient has candidiasis will apply nystatin and monitor, patient with a urine suspicious for UTI urine culture is growing E coli sensitive to ceftriaxone will continue, chest x-ray concerning for pneumonia will add doxycycline and continue ceftriaxone. 06/04/2021 interval history: patient presented with epistaxis most likely secondary to anticoagulation, in emergency department rhino rocket was placed in left nostril, anticoagulation will hold, will keep the renal rocket for 48 hours and remove it on Saturday and assess the patient for any bleeding and then resume anticoagulation, with elevated tropes seen by her [employer] financial developer does not suspect acute plaque rupture most likely demand ischemia due to epistaxis and stress, Patient with history of atrial fibrillation the rate is trending up will consult her [employer] financial developer further recommendation, patient also complains of rash under her right breast her nurse Mulu is present in the room patient has candidiasis will apply nystatin and monitor, patient with a urine suspicious for UTI urine culture is growing E coli sensitive to ceftriaxone will continue, chest x-ray concerning for pneumonia will add doxycycline and continue ceftriaxone will CXR tomorrow. (2) Elevated troponin: Code(s): R77.8 - Other specified abnormalities of plasma proteins Status: Acute Assessment and Plan: Troponins elevated above baseline 0.158, 0.179, 0.179 Baseline troponins are 0.04 Cardiology consulted Could be secondary to uncontrolled heart rate and bleeding Tele monitor (3) Essential hypertension: Code(s): I10 - Essential (primary) hypertension Status: Acute Assessment and Plan: Blood pressure 111/75 Continue home metoprolol Trend blood pressure Adjust therapy as indicated (4) Atrial fibrillation: Code(s): I48.91 - Unspecified atrial fibrillation Status: Acute Assessment and Plan: Rate is uncontrolled Continue metoprolol 25 q.12, digoxin 125 mcg p.o. q.a.m., Cardizem 60 mg q.12 Tele monitor Trend rate Adjust therapy as indicated Cardiology consulted (5) Abnormal urinalysis: Code(s): R82.90 - Unspecified abnormal findings in urine Status: Acute Asse
[2021-06-04] MEDS: POTASSIUM CHLORIDE 10 MEQ TABLET.ER PO (22:05)
[2021-06-05] VITALS (16 sets, daily range): BP systolic 94–118; BP diastolic 52–90; PULSE 34–113; RESP 16–24; TEMP 36.2–36.8; O2SAT 90–100
[2021-06-05 05:49] LABS: Hematocrit 34.8 % (37.0-47.0); Mean Corpuscular HGB Conc 31.6 g/dl (32-36); Mean Corpuscular Hemoglobin 28.6 pg (26-34); Mean Corpuscular Volume 90.6 fl (80-100); Mean Platelet Volume 10.3 fl (7.4-10.4); Platelet Count Result 200 k/mm3 (150-375); Red Blood Count 3.84 M/mm3 (4.2-5.4); Red Cell Distribution Width 14.5 % (11.5-14.5); White Blood Count 13.2 K/mm3 (4.5-10.0)
[2021-06-05 06:04] LABS: Anion Gap 2 mmol/L (8-16); Blood Urea Nitrogen 25 mg/dL (7-17); Carbon Dioxide 31 mmol/L (22-30); Chloride 104 mmol/L (98-107); Estimated CRCL calculation 50 ml/min; Estimated Glomerular Filt Rate > 60; Glucose 131 mg/dL (65-110); Potassium 4.3 mmol/L (3.4-5.0); Sodium 137 mmol/L (137-145)
[2021-06-05] MEDS: TOLNAFTATE 1% POWDER 45 GM BTL 1 APPLIC TOPICAL ×2 (08:29→20:34)
[2021-06-05] MEDS: DIGOXIN TAB 125 MCG TABLET PO (08:30)
[2021-06-05] MEDS: PANTOPRAZOLE 40 MG TABLET PO (08:30)
[2021-06-05] MEDS: cefTRIAXone 2 GM in SODIUM CHLORIDE 0.9% IV 100 ML IVPB (08:30)
[2021-06-05] MEDS: METOPROLOL TARTRATE 25 MG TABLET PO ×2 (08:30→20:33)
[2021-06-05] MEDS: dilTIAZem HCL 60 MG TABLET PO ×2 (08:39→20:34)
[2021-06-05] MEDS: RIVAROXABAN 15 MG TABLET PO (11:30)
--- NOTE | 2021-06-05 17:27 | PM.IMPN ---
Progress Note: A&P Assessment and Plan (1) Epistaxis: Code(s): R04.0 - Epistaxis Status: Acute Assessment and Plan: Reports bleeding started this morning at 8:00 a.m. H&H remained stable Nasal rocket placed by ED Trend labs ENT consult 06/02/2021 interval history: patient presented with epistaxis most likely secondary to anticoagulation, emergency department rhino rocket was placed in left nostril, anticoagulation will hold, will keep the renal rocket for 48 hours and remove it and assess the patient for any bleeding and then resume anticoagulation, with elevated tropes seen by her laser technician does not suspect acute plaque rupture most likely demand ischemia due to epistaxis and stress, patient also complains of rash under her right breast her nurse Mulu is present in the room patient has candidiasis will apply nystatin and monitor, patient with a urine suspicious for UTI patient started on ceftriaxone will follow-up on urine culture, continue to monitor. 06/03/2021 interval history: patient presented with epistaxis most likely secondary to anticoagulation, in emergency department rhino rocket was placed in left nostril, anticoagulation will hold, will keep the renal rocket for 48 hours and remove it on Saturday and assess the patient for any bleeding and then resume anticoagulation, with elevated tropes seen by her laser technician does not suspect acute plaque rupture most likely demand ischemia due to epistaxis and stress, Patient with history of atrial fibrillation the rate is trending up will consult her laser technician further recommendation, patient also complains of rash under her right breast her nurse Mulu is present in the room patient has candidiasis will apply nystatin and monitor, patient with a urine suspicious for UTI urine culture is growing E coli sensitive to ceftriaxone will continue, chest x-ray concerning for pneumonia will add doxycycline and continue ceftriaxone. 06/04/2021 interval history: patient presented with epistaxis most likely secondary to anticoagulation, in emergency department rhino rocket was placed in left nostril, anticoagulation will hold, will keep the renal rocket for 48 hours and remove it on Saturday and assess the patient for any bleeding and then resume anticoagulation, with elevated tropes seen by her laser technician does not suspect acute plaque rupture most likely demand ischemia due to epistaxis and stress, Patient with history of atrial fibrillation the rate is trending up will consult her laser technician further recommendation, patient also complains of rash under her right breast her nurse Mulu is present in the room patient has candidiasis will apply nystatin and monitor, patient with a urine suspicious for UTI urine culture is growing E coli sensitive to ceftriaxone will continue, chest x-ray concerning for pneumonia will add doxycycline and continue ceftriaxone will CXR tomorrow. 06/05/2021 interval history: patient presented with epistaxis most likely secondary to anticoagulation, in emergency department rhino rocket was placed in left nostril on 06/01 anticoagulation on hold, today communicated with the ENT Dr. Cantor recommended to start the Xarelto and monitor overnight with there is no bleeding discharge the patient and follow-up in his clinic, he will remove the rhino rocket in his clinic, with elevated tropes seen by her laser technician does not suspect acute plaque rupture most likely demand ischemia due to epistaxis and stress, Patient with history of atrial fibrillation the rate is trending up will consult her laser technician further recommendation, patient also complains of rash under her right breast her nurse Mulu is present in the room patient has candidiasis will apply nystatin and monitor, patient with a urine suspicious for UTI urine culture is growing E coli sensitive to ceftriaxone will continue, chest x-ray concerning for pneumonia will add doxycycline and continue cef
[2021-06-05] MEDS: POTASSIUM CHLORIDE 10 MEQ TABLET.ER PO (20:34)
[2021-06-06] VITALS (18 sets, daily range): BP systolic 92–115; BP diastolic 41–65; PULSE 76–126; RESP 16–20; TEMP 35.9–36.2; O2SAT 85–99
[2021-06-06 04:59] LABS: Hematocrit 33.7 % (37.0-47.0); Hemoglobin 10.3 g/dL (12.0-15.0); Mean Corpuscular HGB Conc 30.6 g/dl (32-36); Mean Corpuscular Hemoglobin 28.7 pg (26-34); Mean Corpuscular Volume 93.9 fl (80-100); Mean Platelet Volume 10.3 fl (7.4-10.4); Platelet Count Result 191 k/mm3 (150-375); Red Blood Count 3.59 M/mm3 (4.2-5.4); Red Cell Distribution Width 14.8 % (11.5-14.5); White Blood Count 11.1 K/mm3 (4.5-10.0)
[2021-06-06 05:19] LABS: Anion Gap 4 mmol/L (8-16); Blood Urea Nitrogen 26 mg/dL (7-17); Calcium 7.9 mg/dL (8.4-10.2); Carbon Dioxide 28 mmol/L (22-30); Chloride 105 mmol/L (98-107); Estimated CRCL calculation 50 ml/min; Estimated Glomerular Filt Rate > 60; Glucose 133 mg/dL (65-110); Potassium 4.1 mmol/L (3.4-5.0); Sodium 137 mmol/L (137-145)
[2021-06-06] MEDS: FLUTICASONE/UMECLIDIN/VILANTER 100-62.5-25 MCG ELLIPTA 1 PUFF INHALATION (07:41)
[2021-06-06] MEDS: cefTRIAXone 2 GM in SODIUM CHLORIDE 0.9% IV 100 ML IVPB (08:45)
[2021-06-06] MEDS: DIGOXIN TAB 125 MCG TABLET PO (08:46)
[2021-06-06] MEDS: dilTIAZem HCL 60 MG TABLET PO (08:46)
[2021-06-06] MEDS: PANTOPRAZOLE 40 MG TABLET PO (08:47)
[2021-06-06] MEDS: METOPROLOL TARTRATE 25 MG TABLET PO (08:47)
[2021-06-06] MEDS: RIVAROXABAN 15 MG TABLET PO (08:50)
[2021-06-06] MEDS: TOLNAFTATE 1% POWDER 45 GM BTL 1 APPLIC TOPICAL (09:03)
--- NOTE | 2021-06-06 11:35 | PM.DS ---
DS: Admitting Diagnosis Discharge Date 06/06/2021 Admitting Diagnosis Epistaxis DS: Discharge Diagnosis Discharge Diagnosis (1) Epistaxis: Code(s): R04.0 - Epistaxis Status: Acute Assessment and Plan: Reports bleeding started this morning at 8:00 a.m. H&H remained stable Nasal rocket placed by ED Trend labs ENT consult 06/02/2021 interval history: patient presented with epistaxis most likely secondary to anticoagulation, emergency department rhino rocket was placed in left nostril, anticoagulation will hold, will keep the renal rocket for 48 hours and remove it and assess the patient for any bleeding and then resume anticoagulation, with elevated tropes seen by her fisher sponge hooking does not suspect acute plaque rupture most likely demand ischemia due to epistaxis and stress, patient also complains of rash under her right breast her nurse Mulu is present in the room patient has candidiasis will apply nystatin and monitor, patient with a urine suspicious for UTI patient started on ceftriaxone will follow-up on urine culture, continue to monitor. 06/03/2021 interval history: patient presented with epistaxis most likely secondary to anticoagulation, in emergency department rhino rocket was placed in left nostril, anticoagulation will hold, will keep the renal rocket for 48 hours and remove it on Saturday and assess the patient for any bleeding and then resume anticoagulation, with elevated tropes seen by her fisher sponge hooking does not suspect acute plaque rupture most likely demand ischemia due to epistaxis and stress, Patient with history of atrial fibrillation the rate is trending up will consult her fisher sponge hooking further recommendation, patient also complains of rash under her right breast her nurse Mulu is present in the room patient has candidiasis will apply nystatin and monitor, patient with a urine suspicious for UTI urine culture is growing E coli sensitive to ceftriaxone will continue, chest x-ray concerning for pneumonia will add doxycycline and continue ceftriaxone. 06/04/2021 interval history: patient presented with epistaxis most likely secondary to anticoagulation, in emergency department rhino rocket was placed in left nostril, anticoagulation will hold, will keep the renal rocket for 48 hours and remove it on Saturday and assess the patient for any bleeding and then resume anticoagulation, with elevated tropes seen by her fisher sponge hooking does not suspect acute plaque rupture most likely demand ischemia due to epistaxis and stress, Patient with history of atrial fibrillation the rate is trending up will consult her fisher sponge hooking further recommendation, patient also complains of rash under her right breast her nurse Mulu is present in the room patient has candidiasis will apply nystatin and monitor, patient with a urine suspicious for UTI urine culture is growing E coli sensitive to ceftriaxone will continue, chest x-ray concerning for pneumonia will add doxycycline and continue ceftriaxone will CXR tomorrow. 06/05/2021 interval history: patient presented with epistaxis most likely secondary to anticoagulation, in emergency department rhino rocket was placed in left nostril on 06/01 anticoagulation on hold, today communicated with the ENT Dr. Cantor recommended to start the Xarelto and monitor overnight with there is no bleeding discharge the patient and follow-up in his clinic, he will remove the rhino rocket in his clinic, with elevated tropes seen by her fisher sponge hooking does not suspect acute plaque rupture most likely demand ischemia due to epistaxis and stress, Patient with history of atrial fibrillation the rate is trending up will consult her fisher sponge hooking further recommendation, patient also complains of rash under her right breast her nurse Mulu is present in the room patient has candidiasis will apply nystatin and monitor, patient with a urine suspicious for UTI urine culture is growing E coli sensitive to ceftriaxone
--- NOTE | 2021-06-06 14:22 | PC.NURSE ---
O2 evaluation completed- pt requires 3l/nc with activity and O2 1 l/nc at rest- Family and pt informed and acknowledged understanding; Discharged instructions and medications discussed, pt home via w/c accompanied by family to private vehicle; pt to go to Dr. Cantor office today to have nasal rocket removed
--- NOTE | 2021-06-06 14:22 | HOMEO2EVAL ---
Evaluation was performed at [facility] Home Oxygen Evaluation RC: Home Oxygen (O2) Evaluation Start: 06/06/21 12:56 Freq: ONCE Status: Active Protocol: RPE Activity Type Activity Date Activity User E-Sign Co-Sign Detail Recorded Client Recorded Date Recorded By Document 06/06/21 13:30 ALEXANDR [email or web address] 06/06/21 14:22 ALEXANDR Document 06/06/21 13:31 ALEXANDR [email or web address] 06/06/21 14:22 ALEXANDR Document 06/06/21 13:35 ALEXANDR [email or web address] 06/06/21 14:22 ALEXANDR Document 06/06/21 13:36 ALEXANDR [email or web address] 06/06/21 14:22 ALEXANDR Document 06/06/21 13:37 ALEXANDR [email or web address] 06/06/21 14:22 ALEXANDR Document 06/06/21 13:45 ALEXANDR [email or web address] 06/06/21 14:22 ALEXANDR 06/06/21 06/06/21 06/06/21 13:30 13:31 13:35 Home O2 Evaluation Test Phase Resting Resting Exercise Oxygen Delivery Room Air Nasal Cannula Nasal Cannula Oxygen Flow Rate (L/min) 1 1 Pulse Oximetry (90-100 %) 87 L 95 85 L Pulse Rate (60-100 beats/min) 90 111 H Home Oxygen Evaluation Comments Treatment Charges O2 Evaluation - Inpatient 06/06/21 06/06/21 06/06/21 13:36 13:37 13:45 Home O2 Evaluation Test Phase Exercise Exercise Resting Oxygen Delivery Nasal Cannula Nasal Cannula Nasal Cannula Oxygen Flow Rate (L/min) 2 3 1 Pulse Oximetry (90-100 %) 86 L 89 L 94 Pulse Rate (60-100 beats/min) 112 H 113 H 93 Home Oxygen Evaluation Comments Pt requires 1 L rest and 3 L with activity. Pt has [facility] Home O2 Treatment Charges
--- NOTE | 2021-06-06 14:23 | PCRCNOTE ---
Pt has Home O2 currently with [facility], change in needs from 2 L with activity to 3 L. O2 settings are 1 L at rest and 3 L with activity. Pt has tank for transport home, will update [facility] with new eval and order
== END 2021-06-06 14:21 | DRG 151 ==
LOC: ANHED 13:07 → ANHIMU 14:31
PROVIDERS: Nurse Practitioner; Admitting Provider Internal Medicine; Emergency Provider Nurse Practitioner Family; PCP Family Medicine; Visit Provider Family Medicine
DX: R04.0 Epistaxis (principal); D68.32 Hemorrhagic disorder due to extrinsic circulating anticoagulants; N39.0 Urinary tract infection, site not specified; I48.20 Chronic atrial fibrillation, unspecified; T45.515A Adverse effect of anticoagulants, initial encounter; Z79.01 Long term (current) use of anticoagulants; B96.20 Unspecified Escherichia coli [E. coli] as the cause of diseases classified elsewhere; Z20.822 Contact with and (suspected) exposure to COVID-19; G30.9 Alzheimer's disease, unspecified; I10 Essential (primary) hypertension; D72.829 Elevated white blood cell count, unspecified; B37.2 Candidiasis of skin and nail; J44.9 Chronic obstructive pulmonary disease, unspecified; I73.9 Peripheral vascular disease, unspecified; Z99.81 Dependence on supplemental oxygen; Z87.891 Personal history of nicotine dependence
CPT/HCPCS: 30901; 36415; 71045; 71046; 80048; 80053; 81001; 83605; 83735; 84484; 85014; 85018; 85025; 85027; 85610; 85730; 87040; 87077; 87086; 87088; 87186; 93005; 94618; 94640; 96374; 96375; 97161; 97165; 97530; 97535; 99285; A9270; C9803; G0378; J0696; U0003; U0005

== ENCOUNTER 2021-06-11 15:26 | Inpatient (IN) | payer MEDICARE, BC, SELFPAY ==
[2021-06-11] VITALS (10 sets, daily range): BP systolic 76–113; BP diastolic 39–73; PULSE 47–70; RESP 16–33; TEMP 36.2–36.4; O2SAT 92–100; BMI 23.3
--- NOTE | ~2021-06-11 | XR_ITS ---
EXAMINATION: XR chest 1V portable INDICATION: Shortness of breath TECHNIQUE: Portable AP chest at 1050 hours COMPARISON: 06/14/2021 FINDINGS: Cardiomegaly is noted. There are small pleural effusions with slight increase on the right. Bibasilar airspace opacities persist without significant change. There is no pneumothorax. IMPRESSION: 1. Cardiomegaly. 2. Small pleural effusions with slight increase on the right. 3. Stable bibasilar airspace opacities, consistent with atelectasis versus pneumonia. Reviewed, dictated and finalized at location B. IMPRESSION: 1. Cardiomegaly. 2. Small pleural effusions with slight increase on the right. 3. Stable bibasilar airspace opacities, consistent with atelectasis versus pneu monia.
--- NOTE | ~2021-06-11 | XR_ITS ---
XR chest 2V DATE: 06/14/2021 13:12 INDICATION: Shortness of breath TECHNIQUE: AP and lateral views COMPARISON: 06/11/2021 portable AP chest FINDINGS: Cardiomegaly. There is pulmonary vascular congestion and redistribution. There are Al B lines. There are small pleural effusions. The findings are consistent with mild congestive heart failure. There are bibasilar infiltrates and/or atelectasis. Aortic calcification and mild unfolding. Great vessel calcification. Coronary artery calcifications. Diffuse osteopenia. IMPRESSION: Congestive heart failure and bibasilar infiltrate and/or atelectasis Reviewed, dictated and finalized at location A. IMPRESSION: Congestive heart failure and bibasilar infiltrate and/or atelectasi s
--- NOTE | ~2021-06-11 | US_ITS ---
EXAMINATION: US venous doppler [facility] DATE: 06/16/2021 13:16 INDICATION: Lower limb swelling. TECHNIQUE: Grayscale ultrasound images without and with compression and Doppler ultrasound images of the bilateral lower extremity veins were obtained. COMPARISON: None. FINDINGS: The visualized portions of right common femoral vein, profunda (deep) femoral vein, femoral vein, pop liteal vein, peroneal veins, posterior tibial veins, and greater saphenous vein outflow are patent. T here is subcutaneous edema in the calf. The visualized portions of left common femoral vein, profunda femoral vein, femoral vein, popliteal v ein, peroneal veins, posterior tibial veins, and greater saphenous vein outflow are patent. There is subcutaneous edema in the calf. IMPRESSION: 1. No deep venous thrombosis. Reviewed, dictated and finalized at location A.
--- NOTE | ~2021-06-11 | XR_ITS ---
EXAMINATION: XR chest 1V portable INDICATION: Generalized chest pain, weakness TECHNIQUE: Portable AP chest at 1555 hours COMPARISON: 06/05/2021 FINDINGS: Cardiomegaly is noted. The lungs are hyperinflated. There are minimal airspace opacities of the lung bases. No pleural effusion or pneumothorax is identified. IMPRESSION: 1. Cardiomegaly. 2. Minimal bibasilar airspace opacity, consistent with atelectasis versus pneumonia. Reviewed, dictated and finalized at location F. IMPRESSION: 1. Cardiomegaly. 2. Minimal bibasilar airspace opacity, consistent with atelectasis versus pneum onia.
--- NOTE | 2021-06-11 15:48 | ECG_ITS ---
Measurements Intervals [place] Rate: 49 P: NC: 0 QRS: 23 QRSD: 82 T: 164 QT: 388 QTc: 351 Interpretive Statements ATRIAL FIBRILLATION WITH SLOW VENTRICULAR RESPONSE MINIMAL VOLTAGE CRITERIA FOR LVH, CONSIDER NORMAL VARIANT [MEETS CRITERIA IN ONE OF: R(aVL), S(V1), R(V5), R(V5/V6)+S(V1)] ST DEVIATION AND MODERATE T-WAVE ABNORMALITY, CONSIDER LATERAL ISCHEMIA [-0.1+ mV T WAVE IN I/aVL/V5/V6] COMPARED TO ECG 06/01/2021 12:00:56 HEART RATE RESPONSE TO ATRIAL FIBRILLATION IS NOW VERY SLOW Electronically Signed On 06-12-2021 16:13:13 CDT by Yohannes Padilla M.D.
--- NOTE | 2021-06-11 15:59 | ED.SOB ---
HPI - SOB/Dyspnea General Chief Complaint: Arrhythmia/Palpitations Stated Complaint: low heart rate Time Seen by Provider: 06/11/21 15:48 Source: patient Mode of arrival: EMS Limitations: no limitations History of Present Illness HPI Narrative: Patient is an 85-year-old female complaining of shortness of breath x2 days. Patient has a history of COPD. Patient is on continuous home O2 at 2 L. Patient denies any chest pain, abdominal pain, nausea, vomiting, diaphoresis, fever or chills. Related Data Home Medications Medication Instructions Recorded Confirmed diltiazem HCl 60 mg PO Q12H 05/22/21 06/06/21 Xarelto 15 mg PO HS 06/01/21 06/06/21 potassium chloride 10 meq PO HS 06/01/21 06/06/21 Allergies Allergy/AdvReac Type Severity Reaction Status Date / Time No Known Allergies Allergy Mild Verified 06/11/21 15:45 Review of Systems Review of Systems: All systems reviewed & are unremarkable except as noted in HPI and below Constitutional: Constitutional: Denies body ache(s), Denies chills, Denies excessive sweating, Denies fatigue, Denies fever(s), Denies headache(s), Denies lethargy, Denies malaise, Denies weakness and Denies weight loss Eyes: Eyes: Denies blurry vision, Denies change in vision and Denies loss of vision ENT: Denies dizziness, Denies ear discharge, Denies headache(s), Denies lip swelling, Denies epistaxis, Denies nasal congestion, Denies neck pain, Denies throat swelling and Denies tongue swelling Cardiovascular: Cardiovascular: Denies chest pain, Denies chest pain at rest, Denies chest pain with activity, Denies diaphoresis, Denies rapid heart rate, Denies edema, Denies irregular heart rhythm, Denies lightheadedness and Denies palpitations Respiratory: Respiratory: Denies chest congestion, Denies cough and Denies hemoptysis Gastrointestinal: Gastrointestinal: Denies abdominal pain, Denies melena, Denies hematochezia, Denies diarrhea, Denies nausea, Denies vomiting and Denies hematemesis Musculoskeletal: Musculoskeletal: Denies abnormal gait, Denies deformity, Denies joint swelling, Denies limited range of motion, Denies neck pain and Denies numbness Neurologic: Denies Abnormal speech present, Denies abnormal gait, Denies confusion, Denies dizziness, Denies headache(s), Denies focal weakness, Denies loss of vision, Denies numbness, Denies Other visual disturbances, Denies Sensory deficit (Neuro) and Denies weakness Psychiatric: Psychiatric: Denies confusion, Denies depression, Denies auditory hallucinations, Denies homicidal ideation and Denies suicidal ideation Endocrine: Endocrine: Denies cold intolerance, Denies excessive sweating, Denies fatigue, Denies heat intolerance and Denies palpitations Hematologic/Lymphatic: Hematologic/Lymphatic: Denies easy bleeding and Denies easy bruising Allergic/Immunologic: Allergic/Immunologic: Denies lip swelling, Denies throat swelling and Denies tongue swelling PMFSH Past Medical History Medical History Atrial fibrillation Chronic obstructive pulmonary disease Diastolic dysfunction Peripheral arterial disease Pulmonary hypertension Surgical History Surgical History History of cataract extraction History of facial surgery Family History Family History Father Cerebrovascular accident Mother Family history of malignant neoplasm of bone Family history of cardiovascular disease Diabetes mellitus Family history of malignant neoplasm Family history of lymphoma Sibling Family history of cardiovascular disease Congestive heart failure Son Diabetes mellitus Social History Social History Social History: Surrogate decision maker: Max Bernstein, dari. Code status: DNR/DNI Smoking packs per day: 1 Smoking cigarettes per day: 20.
[2021-06-11] MEDS: LACTATED RINGERS 1,000 ML 999 ML IV CONT (16:19)
[2021-06-11] MEDS: methylPREDNISolone SOD SUCC 125 MG VIAL IV PUSH (16:19)
[2021-06-11 16:28] LABS: Alanine Aminotransferase 19 U/L (4-35); Albumin Level 3.6 g/dL (3.5-5.1); Alkaline Phosphatase 85 U/L (38-126); Anion Gap 8 mmol/L (8-16); Aspartate Amino Transferase 26 U/L (14-36); Bilirubin,Total 0.9 mg/dL (0.2-1.3); Blood Urea Nitrogen 27 mg/dL (7-17); Carbon Dioxide 28 mmol/L (22-30); Chloride 105 mmol/L (98-107); Estimated CRCL calculation 40 ml/min; Estimated Glomerular Filt Rate > 60; Glucose 231 mg/dL (65-110); Lactic Acid Reflex 3.7 mmol/L (0.7-2.1); Potassium 4.9 mmol/L (3.4-5.0); Sodium 141 mmol/L (137-145)
[2021-06-11 16:33] LABS: INR 3.4; Partial Thromboplastin Time 43.5 SECONDS (22.3-36.8); Prothrombin Time 33.3 Seconds (11.1-14.7)
[2021-06-11] MEDS: IPRATROPIUM BR 0.02% INH SOLN 0.5 MG/2.5 ML VIAL INHALATION (16:36)
[2021-06-11] MEDS: ALBUTEROL SULFATE NEB 2.5 MG/0.5 ML INH 5 MG INHALATION (16:36)
[2021-06-11 16:43] LABS: Troponin I 0.045 ng/mL (0.000-0.034)
[2021-06-11 18:06] LABS: Base Excess ABG -1.7 mEq/l (+/-2.0); Carboxyhemoglobin 0.5 % THb (0-2.0); Fractional Inspired Oxygen 36 %; HCO3 ABG 22.6 mEq/l (22.0-26.0); Methemoglobin ABG 0.2 %THb (0-1.5); Oxygen Content ABG 15.9 %vol (16.0-22.0); Oxygen Saturation ABG 97.6 % (95.0-100.0); Oxyhemoglobin 96.4 % THb (90.0-100.0); PCO2 ABG 36.8 mmHg (35.0-45.0); PO2 FiO2 Ratio Arterial Blood 2.78 %; Reduced Hemoglobin 2.9 %THb (0-5.0); Total Hemoglobin 11.6 g/dL (12.0-18.0); pH ABG 7.406 (7.350-7.450)
[2021-06-11 18:07] LABS: Device NASAL CANNULA; Modified Allen's Test Pass; Site Drawn LEFT RADIAL
[2021-06-11 19:16] LABS: Reflex Lactic Acid Yes or No Add Lactic
--- NOTE | 2021-06-11 19:46 | PM.IMHP ---
H&P: HPI History of Present Illness Date/Time: Patient was placed observation status for expected length of stay less than 23 hours for management, will plan to re-evaluate tomorrow for improvement. 06/11/21 19:46 Chief Complaint: Dizziness Narrative: Ms. Bernstein is an 85-year-old female who presented to the emergency room via EMS with atrial fibrillation with a slow ventricular response. Patient states she was sitting in her apartment in her assisted living and was talking to her [id number] and states she felt very lightheaded and dizzy and felt like she was going to pass out. Patient's [id number] then called the nurse and patient's vital signs were taken was noted that her heart rate was in the 30s. EMS was then called and upon evaluation patient's heart rate was in the 30s and she was given atropine and she did have an upper response without pain. Patient states she had recently been hospitalized for COPD and placed on home oxygen at 2 L per nasal cannula. Patient denies any chest pain or abnormal shortness of breath. Patient states that she has chronic shortness of breath, and she has not noticed anything abnormal recently. Patient states she has been taking all medications without any difficulty. Patient denies any chest discomfort, dyspnea on exertion, cough, orthopnea, or PND. Patient denies any dysuria, hematuria, frequency, or urgency. Patient has a known history of atrial fibrillation, COPD, diastolic dysfunction, peripheral arterial disease, and pulmonary hypertension. Patient states that she does take Xarelto at home for anticoagulation for her atrial fibrillation. Review of Systems Review of Systems: A 12 point review of systems was completed patient all pertinent positive and negative per HPI the remainder are unremarkable. [facility] Past Medical History Medical History Atrial fibrillation Chronic obstructive pulmonary disease Diastolic dysfunction Peripheral arterial disease Pulmonary hypertension Surgical History Surgical History History of cataract extraction History of facial surgery Family History Family History Father Cerebrovascular accident Mother Family history of malignant neoplasm of bone Family history of cardiovascular disease Diabetes mellitus Family history of malignant neoplasm Family history of lymphoma Sibling Family history of cardiovascular disease Congestive heart failure Son Diabetes mellitus Social History Social History Social History: Surrogate decision maker: Max Bernstein, son. Code status: DNR/DNI Smoking packs per day: 1 Smoking cigarettes per day: 20.0 Years smoked: 40 Smoking pack-years: 40.00 Smoking status: Former smoker Tobacco type: cigarettes Second hand tobacco smoke exposure: Yes Smoking end date: 10/29/00 Alcohol intake: never Drinks per week: 1 Substance use: never Substance use type: does not use Additional living arrangements comments: Assisted living at [facility]. Gender identity (if verbalized by the patient): Female Spiritual care concerns: No Meds Home Medications and Allergies Home Medications Medication Instructions Recorded Confirmed Type albuterol sulfate 90 mcg/actuation 2 puff INHALATION Q4H PRN #8.5 gm 02/25/19 06/06/21 Rx aerosol inhaler diltiazem HCl 60 mg PO Q12H 05/22/21 06/06/21 History digoxin 125 mcg PO QAM 30 Days #30 tablet 05/26/21 06/06/21 Rx metoprolol tartrate 25 mg PO Q12HR 60 Days #120 tablet 05/26/21 06/06/21 Rx ondansetron 4 mg PO Q8H PRN #60 tablet 05/26/21 06/06/21 Rx pantoprazole 40 mg PO QAM 30 Days #30 tablet 05/26/21 06/06/21 Rx prednisone 10 mg PO .ASDIR #21 tablet 05/26/21 06/06/21 Rx Xarelto 15 mg PO HS 06/01/21 06/06/21 History po
--- NOTE | 2021-06-11 20:54 | ADMGEN ---
This patient, Danielle Bernstein, was admitted to IMU Room 204-01. Patient/family oriented to hospital policies and general routines including ID bracelet, bed and alarms, visiting hours, pain management, procedures, bathroom and other care routines, personal items, smoking policy, room service/diet, and visiting hours. Information on how to activate the Rapid Response Team has been discussed. Patient/Family are encouraged to report perceived risks to care and to ask questions if they do not understand what they are told or what they should do.
[2021-06-11] MEDS: LACTATED RINGERS 1,000 ML 90 ML IV CONT (21:15)
[2021-06-11 21:21] LABS: Lactic Acid 2.3 mmol/L (0.7-2.1); Magnesium 2.2 mg/dL (1.6-2.3)
[2021-06-11 21:34] LABS: Digoxin 1.7 ng/mL (0.8-2.0)
[2021-06-11 21:37] LABS: Hematocrit 36.5 % (37.0-47.0); Hemoglobin 10.9 g/dL (12.0-15.0); Mean Corpuscular HGB Conc 29.9 g/dl (32-36); Mean Corpuscular Hemoglobin 28.8 pg (26-34); Mean Corpuscular Volume 96.6 fl (80-100); Mean Platelet Volume 10.4 fl (7.4-10.4); Platelet Count Result 192 k/mm3 (150-375); Red Blood Count 3.78 M/mm3 (4.2-5.4); Red Cell Distribution Width 15.9 % (11.5-14.5); White Blood Count 9.8 K/mm3 (4.5-10.0)
[2021-06-11 21:37] LABS: Troponin I 0.039 ng/mL (0.000-0.034)
[2021-06-11 23:58] LABS: Troponin I 0.033 ng/mL (0.000-0.034)
[2021-06-12] VITALS (19 sets, daily range): BP systolic 105–136; BP diastolic 59–89; PULSE 57–93; RESP 16–20; TEMP 36.3–36.6; O2SAT 95–99
[2021-06-12 05:12] LABS: Hematocrit 34.1 % (37.0-47.0); Hemoglobin 10.3 g/dL (12.0-15.0); Immature Granulocyte Absolute 0.04 K/mm3 (0.00-0.031); Immature Granulocyte Percent A 0.6 % (0-0.5); Lymphocytes Absolute Auto 0.57 K/mm3 (0.9-3.2); Mean Corpuscular HGB Conc 30.2 g/dl (32-36); Mean Corpuscular Hemoglobin 28.6 pg (26-34); Mean Corpuscular Volume 94.7 fl (80-100); Mean Platelet Volume 10.6 fl (7.4-10.4); Monocytes Absolute Auto 0.1 K/mm3 (0.1-0.6); Monocytes Percent Auto 1.3 % (2.6-8.5); Neutrophils Absolute Auto 6.4 K/mm3 (1.3-6.7); Neutrophils Percent Auto 90.1 % (45.5-73.1); Platelet Count Result 154 k/mm3 (150-375); Red Cell Distribution Width 15.9 % (11.5-14.5); White Blood Count 7.1 K/mm3 (4.5-10.0)
[2021-06-12 05:22] LABS: Anion Gap 5 mmol/L (8-16); Blood Urea Nitrogen 32 mg/dL (7-17); Carbon Dioxide 28 mmol/L (22-30); Chloride 106 mmol/L (98-107); Estimated CRCL calculation 38 ml/min; Estimated Glomerular Filt Rate > 60; Glucose 175 mg/dL (65-110); Magnesium 2.2 mg/dL (1.6-2.3); Potassium 5.1 mmol/L (3.4-5.0); Sodium 139 mmol/L (137-145)
[2021-06-12] MEDS: LACTATED RINGERS 1,000 ML 90 ML IV CONT ×2 (07:21→20:15)
--- NOTE | 2021-06-12 07:39 | PM.CNCAR ---
Assessment and Plan Assessment and plan (1) Elevated troponin: Code(s): R77.8 - Other specified abnormalities of plasma proteins Status: Acute Assessment and Plan: Mildly elevated and trended down. Doubt ACS. Likely due to bradycardia and COPD. (2) Atrial fibrillation with slow ventricular response: Code(s): I48.91 - Unspecified atrial fibrillation Status: Acute Assessment and Plan: All 3 rate controlling medication on hold including Diltiazem, Metoprolol and Digoxin. Monitor HR today. If HR goes above 100 persistently, would resume Diltiazem first. Continue Xarelto. (3) Chronic obstructive pulmonary disease: Code(s): J44.9 - Chronic obstructive pulmonary disease, unspecified Status: Acute (4) Essential hypertension: Code(s): I10 - Essential (primary) hypertension Status: Acute Assessment and Plan: Was low due to bradycardia. It is normal now that HR is in normal range. (5) PAD (peripheral artery disease): Code(s): I73.9 - Peripheral vascular disease, unspecified Status: Acute (6) Diastolic dysfunction: Code(s): I51.89 - Other ill-defined heart diseases Status: Acute Assessment and Plan: Stable. Euvolemic at this time. History of Present Illness History of Present Illness Consult date/time: 06/12/21 07:39 Reason for consult: Bradycardia Patient is a 85 yr old woman who is my regular cardiology patient presented to ER for bradycardia. She has a history of diastolic dysfunction, PAD, COPD, Atrial fibrillation, PAD, recent diagnosis of Alzheimer's. States that at [facility] she felt dizziness and about to pass out. EMS was called and noted her HR in 30's bpm, and she was given Atropine and brought to ER. Currently she is lying in bed comfortably without any dizziness. She has chronic sob due to COPD. She lives at [place]. 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 Denies any palpitations, chest pain. 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 She lost her in August 2019. Hb 10.3. INR 3.4. Potassium 5.1. Troponin .045 then .039, then .033. TSH 2.46. Dig 1.7. CXR: Minimal bibasilar airspace opacity, c/w atelectasis vs pneumonia. EKG: Atrial fib with SVR at 49 bpm, LVH with ST-T changes, T wave abnormality in anterolateral leads- consider ischemia. Cardiovascular Procedures 05/23/21 Echo: EF 55-60%, mod LVH, diastolic dysfunction (E/e' 12), TAPSE 0.7 cm, severe LAE, mod KEMAR, mild MR, mild-mod TR/PI, RVSP 66 mmHg. Echo/MUGA:: Echo (EF 55-60%, mod biatrial enlargement, mod MR/TR, trace PI.) - 07/10/2017 Echo (EF 60%, mod LVH, patient is in atrial fib; tissue doppler is not performed, mod LAE, severe KEMAR, mild-mod MR, mild AI, mod TR, RVSP 67 mmHg, grade I atheroma in ant/post aortic root.) - 12/11/2016 Electrophysiology:: 05/23/21 EKG: Atrial fib at 124 bpm, ST-T wave abnormality- consider ischemia. 04/28/20 EKG: Atrial fibrillation at 89 bpm. EKG (Atrial fibrillation at 100 bpm, ST-T wave abnormality- consider anterolateral/lat ischemia.) - 12/14/2016 Stress Tests:: CXR (Small bilateral pleural effusions.) - 07/10/2017 MPI (Lexisan myoview: Negative for ischemia.) - 12/21/2016 SHREYA (SHREYA right 1.23 and left 1.19; TBI 0.28 on right and 0.24 on left (normal >0.65) suggestive of PAD. Triphasic waveforms throughout except biphasic at ankle.) - 09/04/2017 Venous Duplex (Negative for DVT bilaterally.) - 09/04/2017 Carotid Duplex (16-49% right ICA; and 50% left ICA stenosis.) - 12/18/2016 Carotid Duplex (<50% right ICA; 50-69% left ICA stenosis.) - 08/18/2012 Reason For Visit: [place],COPD Exacerbation,Elevated Troponin Review of Systems Review of Systems: All systems reviewed & are unremarkable except as noted in HPI and below Constitutional: Constitutional: Reports as per HPI, Denies chills, Reports fatigue and Denies fever(s) Cardiovascular: Cardiovascular: Reports as per HPI, Denies chest pain, Denie
[2021-06-12] MEDS: MEMANTINE HCL XR 7 MG CAP 14 MG PO (09:01)
[2021-06-12] MEDS: DONEPEZIL HCL 10 MG TABLET PO (09:02)
--- NOTE | 2021-06-12 09:33 | PM.IMPN ---
Progress Note: A&P Assessment and Plan (1) Atrial fibrillation with slow ventricular response: Code(s): I48.91 - Unspecified atrial fibrillation Status: Acute Assessment and Plan: -was reportedly in the 30s on EMS arrival -all rate controlling meds on hold currently including Diltiazem, Metoprolol, and Digoxin -Digoxin level WNL, TSH WNL -Cardiology consulted for further management (2) Essential hypertension: Code(s): I10 - Essential (primary) hypertension Status: Acute Assessment and Plan: -At this point time patient's blood pressure is on the low side. -Will be holding multiple medications secondary to patient's atrial fibrillation with a slow ventricular response. -Will add medications for blood pressure as needed per cardiology recommendations (3) Cough: Code(s): R05.9 - Cough, unspecified Status: Acute Assessment and Plan: -wet cough x few days -no leukocytosis or fever -CXR w/ atelectasis vs pneumonia -check COVID and flu -sputum culture -check procalcitonin -will start Cefepime and Vanc to cover for HAP, pt was recently hospitalized (4) Chronic obstructive pulmonary disease: Code(s): J44.9 - Chronic obstructive pulmonary disease, unspecified Status: Acute Assessment and Plan: -On her baseline oxygen requirement 2L NC -Will resume patient's home medications. (5) Hyperglycemia: Code(s): R73.9 - Hyperglycemia, unspecified Status: Acute Assessment and Plan: -serum glucose 175 this AM -pt reports recent steroid use for her COPD but does not remember when she stopped them -A1c from this month was 5.9% -continue to monitor, consider starting low dose SSI (6) Dark urine: Code(s): R82.998 - Other abnormal findings in urine Status: Acute Assessment and Plan: -dark urine noted by RN w/ low urine output despite being on IVF -check UA -check bladder scan, will place jenkins if retaining -recently finished abx for UTI Subjective Date/time seen: 06/12/21 09:33 Interval history: 85 yo female w/ hx of atrial fibrillation anticoagulated on xaralto, COPD on baseline 2L oxygen, diastolic dysfunction, peripheral arterial disease, and pulmonary hypertension, admitted for afib w/ slow ventricular response. Pt states she feels more sob today. Notes she has been coughing for a few days now. Non productive but sounds when during my evaluation. No cp, palpitations, dizziness, vision changes, LEIGH. No N/V/abd pain. Review of Systems Review of Systems: All systems reviewed & are unremarkable except as noted in HPI and below Exam Narrative: General: No acute distress, non toxic appearing, elderly Eyes: PERRL, no scleral icterus HEENT: NCAT, external ears normal, MMM Respiratory: No respiratory distress, Lungs sounds diminished bilaterally, no wheezing, wet cough noted, on 2L NC Cardiovascular: irrgular rhythm, rate in the 60s Abdominal: Soft, nontender, non distended, no rebound or guarding Musculoskeletal: Moves all 4 extremities, no edema, bilateral feet cool w/ palpable pedal pulses. Patient has cyanosis to bilateral feet. Patient states this has been worked up extensively and she has been told that they cannot find anything causing her feet turn purple at times. Neurological: A/Ox3, speech clear, no facial asymmetry Skin: Warm, dry Psychiatric: Normal affect, normal mood Objective Data Vital Signs Vital Signs: Vital Signs - 24 hr 06/11/21 15:33 06/11/21 16:40 06/11/21 16:55 Temperature Pulse Rate 55 L 48 L 49 L Respiratory Rate 33 H 20 20 Blood Pressure 98/62 L Pulse Oximetry 92 06/11/21 17:48 06/11/21 18:54 06/11/21 20:40 Temperature Pulse Rate 58 L 47 L 48 L Respiratory Rate 28 H 28 H 24 H Blood Pressure 88/39 L 76/64 L 104/73 Pulse Oximetry 98 100 100 06/11/21 21:00 06/11/21 21:02 06/11/21 22:00 Temperature 97.6
[2021-06-12] MEDS: FLUTICASONE/UMECLIDIN/VILANTER 100-62.5-25 MCG ELLIPTA 1 PUFF INHALATION (09:41)
[2021-06-12 10:22] LABS: Procalcitonin 0.1 ng/mL
[2021-06-12 14:23] LABS: SARS-CoV-2 RNA PCR Negative
[2021-06-12 17:53] LABS: Influenza A QL RT-PCR Negative (Negative); Influenza B QL RT-PCR Negative (Negative)
[2021-06-12] MEDS: RIVAROXABAN 15 MG TABLET PO (17:56)
[2021-06-13] VITALS (16 sets, daily range): BP systolic 101–148; BP diastolic 62–95; PULSE 76–137; RESP 16–20; TEMP 36.1–36.6; O2SAT 95–99
[2021-06-13 05:11] LABS: Basophils Percent Auto 0.1 % (0.2-1.2); Eosinophils Percent Auto 0.1 % (0-4.4); Hematocrit 31.8 % (37.0-47.0); Hemoglobin 9.6 g/dL (12.0-15.0); Immature Granulocyte Absolute 0.06 K/mm3 (0.00-0.031); Immature Granulocyte Percent A 0.6 % (0-0.5); Lymphocytes Absolute Auto 0.67 K/mm3 (0.9-3.2); Lymphocytes Percent Auto 6.9 % (18.3-44.2); Mean Corpuscular HGB Conc 30.2 g/dl (32-36); Mean Corpuscular Hemoglobin 28.7 pg (26-34); Mean Corpuscular Volume 94.9 fl (80-100); Mean Platelet Volume 10.8 fl (7.4-10.4); Monocytes Absolute Auto 0.5 K/mm3 (0.1-0.6); Monocytes Percent Auto 5.1 % (2.6-8.5); Neutrophils Absolute Auto 8.5 K/mm3 (1.3-6.7); Neutrophils Percent Auto 87.2 % (45.5-73.1); Platelet Count Result 170 k/mm3 (150-375); Red Blood Count 3.35 M/mm3 (4.2-5.4); Red Cell Distribution Width 15.9 % (11.5-14.5); White Blood Count 9.7 K/mm3 (4.5-10.0)
[2021-06-13 05:42] LABS: Alanine Aminotransferase 17 U/L (4-35); Albumin Level 2.9 g/dL (3.5-5.1); Alkaline Phosphatase 67 U/L (38-126); Anion Gap 2 mmol/L (8-16); Aspartate Amino Transferase 21 U/L (14-36); Bilirubin,Total 0.4 mg/dL (0.2-1.3); Blood Urea Nitrogen 31 mg/dL (7-17); Carbon Dioxide 30 mmol/L (22-30); Chloride 104 mmol/L (98-107); Estimated CRCL calculation 43 ml/min; Estimated Glomerular Filt Rate > 60; Glucose 143 mg/dL (65-110); Potassium 4.8 mmol/L (3.4-5.0); Sodium 136 mmol/L (137-145)
--- NOTE | 2021-06-13 06:03 | PCDIET ---
Patient has had minimal urine output this shift. Bladder scan was performed, and demonstrated 55mL in patient's bladder. Will continue to monitor.
[2021-06-13] MEDS: FLUTICASONE/UMECLIDIN/VILANTER 100-62.5-25 MCG ELLIPTA 1 PUFF INHALATION (07:58)
--- NOTE | 2021-06-13 08:30 | PM.PNCARD ---
Progress Note: A&P Assessment and Plan (1) Elevated troponin: Code(s): R77.8 - Other specified abnormalities of plasma proteins Status: Acute Assessment and Plan: Mildly elevated at .045 and trended down. Doubt ACS. Likely due to bradycardia and COPD. (2) Atrial fibrillation with slow ventricular response: Code(s): I48.91 - Unspecified atrial fibrillation Status: Acute Assessment and Plan: All 3 rate controlling medication on hold including Diltiazem, Metoprolol and Digoxin. Monitor HR today. If HR goes above 100 persistently, would resume Diltiazem first. Continue Xarelto. Monitor for 1 more day to see if she needs Diltiazem restarted. (3) Chronic obstructive pulmonary disease: Code(s): J44.9 - Chronic obstructive pulmonary disease, unspecified Status: Acute (4) Essential hypertension: Code(s): I10 - Essential (primary) hypertension Status: Acute Assessment and Plan: Was low due to bradycardia. It is normal now that HR is in normal range. (5) PAD (peripheral artery disease): Code(s): I73.9 - Peripheral vascular disease, unspecified Status: Acute (6) Diastolic dysfunction: Code(s): I51.89 - Other ill-defined heart diseases Status: Acute Assessment and Plan: Stable. Euvolemic at this time. Subjective Date/time seen: 06/13/21 08:30 Denies chest pain or sob. Reports no longer dizzy and feels she is back to normal. Exam Const: General: cooperative, healthy appearing and comfortable Resp: Auscultation: no crackles, no rales, no rhonchi, no wheezes and diminished lung sounds Cardio: Jugular venous distension: no JVD Rate: regular rate Rhythm: abnormal rhythm Heart sounds: no murmurs Peripheral pulses: dorsalis pedis present GI: GI Palp: No abdominal tenderness and Yes Soft to palpation Neuro: General: oriented to person, oriented to place and oriented to time Extrem: Right lower extremity: no edema Left lower extremity: no edema Objective Data Vital Signs Vital Signs: Vital Signs - 24 hr 06/12/21 09:44 06/12/21 10:00 06/12/21 12:20 Temperature Pulse Rate 82 81 Respiratory Rate Blood Pressure Pulse Oximetry 97 95 06/12/21 12:21 06/12/21 14:00 06/12/21 15:46 Temperature 97.8 F 97.3 F L Pulse Rate 82 80 76 Respiratory Rate 18 18 Blood Pressure 113/77 136/88 Pulse Oximetry 97 99 06/12/21 16:00 06/12/21 19:54 06/12/21 20:00 Temperature 97.3 F L Pulse Rate 69 59 L Respiratory Rate 16 Blood Pressure 123/60 Pulse Oximetry 95 95 99 06/12/21 20:21 06/12/21 22:00 06/12/21 23:22 Temperature 97.6 F Pulse Rate 93 70 Respiratory Rate 16 Blood Pressure 133/89 Pulse Oximetry 98 99 06/13/21 00:00 06/13/21 02:00 06/13/21 04:00 Temperature 97 F L Pulse Rate 76 92 76 Respiratory Rate 16 Blood Pressure 116/71 Pulse Oximetry 96 99 06/13/21 06:00 06/13/21 08:00 Temperature Pulse Rate 82 Respiratory Rate Blood Pressure Pulse Oximetry 96 Intake/Output Intake/Output: Intake & Output 06/10/21 06/11/21 06/12/21 06/13/21 23:59 23:59 23:59 23:59 Intake Total 1000 2470 Output Total 275 0 Balance 1000 2195 0 Meds/Results Medications: Active Medications Generic Name Dose Route Start Last Admin Trade Name Freq PRN Reason Stop Dose Admin Acetaminophen 650 mg 06/11/21 19:41 Acetaminophen 325 Mg Tablet PO Q6H PRN Mild Pain (1-3) or Fever Albuterol 2 puff 06/11/21 22:32 Albuterol Sulfate (*Sp) Aerosol 1 Puff INHALATION Q4H PRN shortness of breath or wheezing Donepezil HCl 10 mg 06/12/21 09:00 06/12/21 09:02 Donepezil Hcl 10 Mg Tablet PO 10 mg DAILY MARÍA ELENA Administration Fluticasone/Umeclidinium/Vilanterol 1 puff 06/12/21 09:00 06/13/21 07:58 Fluticasone/Umeclidin/Vilanter 100-62.5-25 Mcg Ellipta INHALATION 1 puff DAILY MARÍA ELENA Administration Lactated Ringer's 1,000 mls @ 90 mls/
--- NOTE | 2021-06-13 08:54 | PM.IMPN ---
Progress Note: A&P Assessment and Plan (1) Atrial fibrillation with slow ventricular response: Code(s): I48.91 - Unspecified atrial fibrillation Status: Acute Assessment and Plan: -was reportedly in the 30s on EMS arrival -all rate controlling meds on hold currently including Diltiazem, Metoprolol, and Digoxin -Digoxin level WNL, TSH WNL -Cardiology consulted for further management (2) Pneumonia: Code(s): J18.9 - Pneumonia, unspecified organism Status: Acute Assessment and Plan: -wet cough x few days -no leukocytosis or fever -CXR w/ atelectasis vs pneumonia -COVID and flu negative -obtain sputum culture, blood cultures (blood cultures drawn after one dose of abx) -procalcitonin normal -started Cefepime and Vanc to cover for HAP, pt was recently hospitalized -she is doing much better today after being started on abx yesterday, cough has improved as well as fatigue -will continue IV abx because she is improving clinically (3) Essential hypertension: Code(s): I10 - Essential (primary) hypertension Status: Acute Assessment and Plan: -At this point time patient's blood pressure is on the low side. -Will be holding multiple medications secondary to patient's atrial fibrillation with a slow ventricular response. -Will add medications for blood pressure as needed per cardiology recommendations (4) Chronic obstructive pulmonary disease: Code(s): J44.9 - Chronic obstructive pulmonary disease, unspecified Status: Acute Assessment and Plan: -On her baseline oxygen requirement 2L [place] -Will resume patient's home medications. (5) Hyperglycemia: Code(s): R73.9 - Hyperglycemia, unspecified Status: Acute Assessment and Plan: -serum glucose 231 on arrival -pt reports recent steroid use for her COPD but does not remember when she stopped them -A1c from this month was 5.9% -continue to monitor, consider starting low dose SSI -improved today at 143 (6) Dark urine: Code(s): R82.998 - Other abnormal findings in urine Status: Acute Assessment and Plan: -dark urine noted by RN w/ low urine output despite being on IVF -check UA -check bladder scan, will place jenkins if retaining -recently finished abx for UTI, could have been inadequately treated Subjective Date/time seen: 06/13/21 08:54 Interval history: 85 yo female w/ hx of atrial fibrillation anticoagulated on xaralto, COPD on baseline 2L oxygen, diastolic dysfunction, peripheral arterial disease, and pulmonary hypertension, admitted for afib w/ slow ventricular response. Pt is feeling better today. She is coughing less and has a little bit more energy. No sob but she has also not been up and moving around yet. No cp/palpitations/N/V/abd pain. Review of Systems Review of Systems: All systems reviewed & are unremarkable except as noted in HPI and below Exam Narrative: General: No acute distress, non toxic appearing, elderly, more alert today Eyes: PERRL, no scleral icterus HEENT: NCAT, external ears normal, MMM Respiratory: No respiratory distress, Lungs sounds diminished bilaterally, no wheezing, on 2L [place] Cardiovascular: irregular rhythm, regular rate Abdominal: Soft, nontender, non distended, no rebound or guarding Musculoskeletal: Moves all 4 extremities, no edema, bilateral feet cool w/ palpable pedal pulses. Patient has cyanosis to bilateral feet. Patient states this has been worked up extensively and she has been told that they cannot find anything causing her feet turn purple at times. Neurological: A/Ox3, speech clear, no facial asymmetry Skin: Warm, dry Psychiatric: Normal affect, normal mood Objective Data Vital Signs Vital Signs: Vital Signs - 24 hr 06/12/21 09:44 06/12/21 10:00 06/12/21 12:20 Temperature Pulse Rate 82 81 Respiratory Rate Blood Pressure Pulse Oximetry 97 95
[2021-06-13] MEDS: MEMANTINE HCL XR 7 MG CAP 14 MG PO (08:56)
[2021-06-13] MEDS: DONEPEZIL HCL 10 MG TABLET PO (08:56)
[2021-06-13] MEDS: LACTATED RINGERS 1,000 ML 90 ML IV CONT ×2 (10:00→20:03)
[2021-06-13] MEDS: ONDANSETRON INJ 4 MG/2 ML VIAL IV PUSH (11:35)
--- NOTE | 2021-06-13 11:40 | PCPTNOTE ---
The patient treatment was not able to be completed on 06/13/2021 due to patient having nausea. Per RN patient has been having nausea, and patient declined therapy due to nausea. Will plan to continue treatment per plan of care.
[2021-06-13 14:10] LABS: Add Urine Microscopic? YES; Appearance Urine Cloudy (Clear); Bacteria Urine Trace /hpf; Bilirubin Urine Negative (Negative); Blood Urine Negative (Negative); Color Urine Yellow (Yellow); Glucose Urine UA Negative (Negative); Ketones Urine Negative (Negative); Leukocyte Esterase Ur Negative LEU/UL (Negative); Mucus Urine Rare /lpf; Nitrate Urine Negative (Negative); Protein Urine 1+ mg/dL (Negative); Specific Grav Ur 1.027 (1.001-1.035); Squamous Epithelial Cell Urine Many /hpf (Few); Urobilinogen Urine Negative mg/dL (<2.0)
[2021-06-13] MEDS: RIVAROXABAN 15 MG TABLET PO (18:24)
[2021-06-13] MEDS: dilTIAZem HCL 60 MG TABLET PO ×2 (18:47→23:48)
[2021-06-14] VITALS (16 sets, daily range): BP systolic 103–131; BP diastolic 52–89; PULSE 68–146; RESP 20–28; TEMP 36.2–36.5; O2SAT 91–99
--- NOTE | 2021-06-14 04:43 | PC.NURSE ---
This RN attempted to pull patient's IV Diltiazem dose from [facility]. Medication was never pulled from [facility] as the drawer for the medication never opened. Pharmacy was notified, and they will send a dose of IV medication.
[2021-06-14] MEDS: dilTIAZem HCl INJ 25 MG/5 ML VIAL 10 MG IV PUSH (04:49)
[2021-06-14] MEDS: dilTIAZem HCL 60 MG TABLET PO ×4 (04:53→17:40)
[2021-06-14 05:23] LABS: Basophils Percent Auto 0.1 % (0.2-1.2); Eosinophils Absolute Auto 0.2 K/mm3 (0-0.3); Eosinophils Percent Auto 2.5 % (0-4.4); Hematocrit 33.7 % (37.0-47.0); Hemoglobin 10.1 g/dL (12.0-15.0); Immature Granulocyte Absolute 0.06 K/mm3 (0.00-0.031); Immature Granulocyte Percent A 0.6 % (0-0.5); Lymphocytes Absolute Auto 0.46 K/mm3 (0.9-3.2); Mean Corpuscular Hemoglobin 28.3 pg (26-34); Mean Corpuscular Volume 94.4 fl (80-100); Mean Platelet Volume 10.3 fl (7.4-10.4); Monocytes Absolute Auto 0.7 K/mm3 (0.1-0.6); Monocytes Percent Auto 7.2 % (2.6-8.5); Neutrophils Absolute Auto 7.8 K/mm3 (1.3-6.7); Neutrophils Percent Auto 84.6 % (45.5-73.1); Platelet Count Result 176 k/mm3 (150-375); Red Blood Count 3.57 M/mm3 (4.2-5.4); Red Cell Distribution Width 15.7 % (11.5-14.5); White Blood Count 9.3 K/mm3 (4.5-10.0)
[2021-06-14 05:35] LABS: Alanine Aminotransferase 19 U/L (4-35); Albumin Level 3.2 g/dL (3.5-5.1); Alkaline Phosphatase 66 U/L (38-126); Anion Gap 4 mmol/L (8-16); Aspartate Amino Transferase 23 U/L (14-36); Bilirubin,Total 0.6 mg/dL (0.2-1.3); Blood Urea Nitrogen 23 mg/dL (7-17); Calcium 8.2 mg/dL (8.4-10.2); Carbon Dioxide 30 mmol/L (22-30); Chloride 103 mmol/L (98-107); Estimated CRCL calculation 50 ml/min; Estimated Glomerular Filt Rate > 60; Glucose 125 mg/dL (65-110); Potassium 4.6 mmol/L (3.4-5.0); Sodium 137 mmol/L (137-145)
[2021-06-14] MEDS: DONEPEZIL HCL 10 MG TABLET PO (08:10)
[2021-06-14] MEDS: MEMANTINE HCL XR 7 MG CAP 14 MG PO (08:10)
--- NOTE | 2021-06-14 08:11 | PM.PNCARD ---
Progress Note: A&P Assessment and Plan (1) Elevated troponin: Code(s): R77.8 - Other specified abnormalities of plasma proteins Status: Acute Assessment and Plan: Mildly elevated at .045 and trended down. Doubt ACS. Likely due to bradycardia and COPD. (2) Atrial fibrillation with slow ventricular response: Code(s): I48.91 - Unspecified atrial fibrillation Status: Acute Assessment and Plan: All 3 rate controlling medication on hold including Diltiazem, Metoprolol and Digoxin. Monitor HR today. If HR goes above 100 persistently, would resume Diltiazem first. Continue Xarelto. Her HR is rapid again, restarted Diltiazem 60 mg PO BID. Monitor HR, and if still fast after morning dose, will add Metoprolol. (3) Chronic obstructive pulmonary disease: Code(s): J44.9 - Chronic obstructive pulmonary disease, unspecified Status: Acute (4) Essential hypertension: Code(s): I10 - Essential (primary) hypertension Status: Acute Assessment and Plan: Stable. (5) PAD (peripheral artery disease): Code(s): I73.9 - Peripheral vascular disease, unspecified Status: Acute (6) Diastolic dysfunction: Code(s): I51.89 - Other ill-defined heart diseases Status: Acute Assessment and Plan: Stable. Euvolemic at this time. Subjective Date/time seen: 06/14/21 08:11 Denies chest pain or sob. Exam Const: General: cooperative, healthy appearing and comfortable Resp: Auscultation: no crackles, no rales, no rhonchi, no wheezes and diminished lung sounds Cardio: Jugular venous distension: no JVD Rate: tachycardic Rhythm: abnormal rhythm Heart sounds: no murmurs Peripheral pulses: dorsalis pedis present GI: GI Palp: No abdominal tenderness and Yes Soft to palpation Neuro: General: oriented to person, oriented to place and oriented to time Extrem: Right lower extremity: no edema Left lower extremity: no edema Objective Data Vital Signs Vital Signs: Vital Signs - 24 hr 06/13/21 10:00 06/13/21 11:35 06/13/21 12:00 Temperature 97.1 F L Pulse Rate 95 108 H 94 Respiratory Rate 20 Blood Pressure 148/88 H Pulse Oximetry 98 98 06/13/21 14:00 06/13/21 16:00 06/13/21 18:00 Temperature 97.9 F Pulse Rate 111 H 129 H 121 H Respiratory Rate 16 Blood Pressure 122/95 H Pulse Oximetry 97 06/13/21 19:30 06/13/21 20:00 06/13/21 22:00 Temperature 97.3 F L Pulse Rate 109 H 107 H Respiratory Rate 18 Blood Pressure 136/62 Pulse Oximetry 95 95 06/13/21 22:35 06/13/21 23:59 06/14/21 00:00 Temperature 97.3 F L Pulse Rate 121 H 107 H Respiratory Rate 18 Blood Pressure 125/64 Pulse Oximetry 95 98 95 06/14/21 02:00 06/14/21 04:00 06/14/21 06:00 Temperature 97.5 F L Pulse Rate 115 H 113 H 107 H Respiratory Rate 20 Blood Pressure 107/54 L Pulse Oximetry 99 Intake/Output Intake/Output: Intake & Output 06/11/21 06/12/21 06/13/21 06/14/21 23:59 23:59 23:59 23:59 Intake Total 1000 2720 2700 400 Output Total 275 351 600 Balance 1000 2445 2349 -200 Meds/Results Medications: Active Medications Generic Name Dose Route Start Last Admin Trade Name Freq PRN Reason Stop Dose Admin Acetaminophen 650 mg 06/11/21 19:41 Acetaminophen 325 Mg Tablet PO Q6H PRN Mild Pain (1-3) or Fever Albuterol 2 puff 06/11/21 22:32 Albuterol Sulfate (*Sp) Aerosol 1 Puff INHALATION Q4H PRN shortness of breath or wheezing Diltiazem HCl 60 mg 06/13/21 18:25 06/14/21 06:18 Diltiazem Hcl 60 Mg Tablet PO 60 mg Q6HR MARÍA ELENA Administration Donepezil HCl 10 mg 06/12/21 09:00 06/14/21 08:10 Donepezil Hcl 10 Mg Tablet PO 10 mg DAILY MARÍA ELENA Administration Fluticasone/Umeclidinium/Vilanterol 1 puff 06/12/21 09:00 06/13/21 07:58 Fluticasone/Umeclidin/Vilanter 100-62.5-25 Mcg Ellipta INHALATION 1 puff DAILY MARÍA ELENA Administration Lactated Ringer's 1,000 mls @ 90 mls/
[2021-06-14] MEDS: LACTATED RINGERS 1,000 ML 90 ML IV CONT (08:15)
[2021-06-14] MEDS: FLUTICASONE/UMECLIDIN/VILANTER 100-62.5-25 MCG ELLIPTA 1 PUFF INHALATION (08:23)
[2021-06-14] MEDS: METOPROLOL TARTRATE 25 MG TABLET PO ×2 (10:51→17:40)
--- NOTE | 2021-06-14 11:40 | PCPTNOTE ---
The patient treatment was not able to be completed on 06/14/2021 due to increase heart rate. Per nursing not to see patient for PT, patient's heart rate has been in the 160s /170s and heart rate 127 resting. Will plan to continue treatment per plan of care.
--- NOTE | 2021-06-14 13:09 | PCOTNOTE ---
Attempted to see patient this date, however RN advised not to see due to elevated HR 160s-170s.
--- NOTE | 2021-06-14 14:19 | P.PNIM_ITS ---
Progress Note: A&P Assessment and Plan (1) CHF (congestive heart failure): Code(s): I50.9 - Heart failure, unspecified Status: Acute Assessment and Plan: * Patient became tachypneic today, with increased work of breathing, and increased O2 requirements (3 L) and feels weak. Repeat CXR shows congestive heart failure and bibasilar infiltrate and/or atelectasis. This was not present on CXR at admission. I suspect her new tachypnea is more related to a CHF exacerbation versus pneumonia. * 05/22 echo showed LVEF at 55-60%, mild AV sclerosis, severe pulmonary hypertension/ PAP 66 mm Hg * Cardiology is already following this patient * Stop IV fluids * 20 mg Lasix IV, renal function is normal. * Monitor blood pressure * Daily intake and output * Daily weights (2) Atrial fibrillation with slow ventricular response: Code(s): I48.91 - Unspecified atrial fibrillation Status: Acute Assessment and Plan: * patient is followed by Cardiology, normally rate controlled on digoxin, diltiazem, and metoprolol. * Telemetry shows AFib * She has been mildly tachycardic today, and has been restarted on diltiazem 60 mg q.6 hours, and metoprolol 25 mg q.6 hours. She has not been restarted on her digoxin. * Digoxin level WNL, TSH WNL * Cardiology is following * Continue apixaban (3) Pneumonia: Code(s): J18.9 - Pneumonia, unspecified organism Status: Acute Assessment and Plan: * Patient became tachypneic today, and feels weak. Repeat CXR shows congestive heart failure and bibasilar infiltrate and/or atelectasis. This was not present on CXR at admission. I suspect her new tachypnea is more related to a CHF exacerbation versus pneumonia. * Continues to have no leukocytosis or fever * COVID and flu negative * Procalcitonin normal * Blood culture showed no growth to date * Sputum culture pending * Discontinue empiric cefepime and vanc. (4) Essential hypertension: Code(s): I10 - Essential (primary) hypertension Status: Acute Assessment and Plan: * Normotensive today. * We are managing her AFib rate primarily at this point, see AFib for additional plan. * Will add medications for blood pressure as needed per cardiology recommendations (5) Chronic obstructive pulmonary disease: Code(s): J44.9 - Chronic obstructive pulmonary disease, unspecified Status: Acute Assessment and Plan: * On her baseline oxygen requirement 2L [place], increased to 3 L today * Will resume patient's home medications. * Breathing treatments q.4 hours p.r.n. (6) Hyperglycemia: Code(s): R73.9 - Hyperglycemia, unspecified Status: Acute Assessment and Plan: * Glucose 125 today * pt reports recent steroid use for her COPD but does not remember when she stopped them * A1c from this month was 5.9% * continue to monitor, consider starting low dose SSI (7) Dark urine: Code(s): R82.998 - Other abnormal findings in urine Status: Acute Assessment and Plan: * Upon admission, patient was not urinating. Dark urine noted by RN w/ low urine output despite being on IVF * Bladder scan showed 200 mL of urine, patient has been urinating today * UA showed 6-10 urine RBC, 4-6 WBC, no leuk esterase, no nitrates, * Well obtain urine culture Subjective Date/time seen: 06/14/21 14:19 85-year-old female with history of AFib, dementia, and CO
--- NOTE | 2021-06-14 14:19 | PM.IMPN ---
Progress Note: A&P Assessment and Plan (1) CHF (congestive heart failure): Code(s): I50.9 - Heart failure, unspecified Status: Acute Assessment and Plan: Patient became tachypneic today, with increased work of breathing, and increased O2 requirements (3 L) and feels weak. Repeat CXR shows congestive heart failure and bibasilar infiltrate and/or atelectasis. This was not present on CXR at admission. I suspect her new tachypnea is more related to a CHF exacerbation versus pneumonia. 05/22 echo showed LVEF at 55-60%, mild AV sclerosis, severe pulmonary hypertension/ PAP 66 mm Hg Cardiology is already following this patient Stop IV fluids 20 mg Lasix IV, renal function is normal. Monitor blood pressure Daily intake and output Daily weights (2) Atrial fibrillation with slow ventricular response: Code(s): I48.91 - Unspecified atrial fibrillation Status: Acute Assessment and Plan: patient is followed by Cardiology, normally rate controlled on digoxin, diltiazem, and metoprolol. Telemetry shows AFib She has been mildly tachycardic today, and has been restarted on diltiazem 60 mg q.6 hours, and metoprolol 25 mg q.6 hours. She has not been restarted on her digoxin. Digoxin level WNL, TSH WNL Cardiology is following Continue apixaban (3) Pneumonia: Code(s): J18.9 - Pneumonia, unspecified organism Status: Acute Assessment and Plan: Patient became tachypneic today, and feels weak. Repeat CXR shows congestive heart failure and bibasilar infiltrate and/or atelectasis. This was not present on CXR at admission. I suspect her new tachypnea is more related to a CHF exacerbation versus pneumonia. Continues to have no leukocytosis or fever COVID and flu negative Procalcitonin normal Blood culture showed no growth to date Sputum culture pending Discontinue empiric cefepime and vanc. (4) Essential hypertension: Code(s): I10 - Essential (primary) hypertension Status: Acute Assessment and Plan: Normotensive today. We are managing her AFib rate primarily at this point, see AFib for additional plan. Will add medications for blood pressure as needed per cardiology recommendations (5) Chronic obstructive pulmonary disease: Code(s): J44.9 - Chronic obstructive pulmonary disease, unspecified Status: Acute Assessment and Plan: On her baseline oxygen requirement 2L NC, increased to 3 L today Will resume patient's home medications. Breathing treatments q.4 hours p.r.n. (6) Hyperglycemia: Code(s): R73.9 - Hyperglycemia, unspecified Status: Acute Assessment and Plan: Glucose 125 today pt reports recent steroid use for her COPD but does not remember when she stopped them A1c from this month was 5.9% continue to monitor, consider starting low dose SSI (7) Dark urine: Code(s): R82.998 - Other abnormal findings in urine Status: Acute Assessment and Plan: Upon admission, patient was not urinating. Dark urine noted by RN w/ low urine output despite being on IVF Bladder scan showed 200 mL of urine, patient has been urinating today UA showed 6-10 urine RBC, 4-6 WBC, no leuk esterase, no nitrates, Well obtain urine culture Subjective Date/time seen: 06/14/21 14:19 85-year-old female with history of AFib, dementia, and COPD under our care for her shortness of breath. Today she reports worsening shortness of breath, and fatigue. She denies chest pain, abdominal pain, swelling in her extremities, syncope, dizziness. She denies palpitations or sensation of racing heart. Her son was in the room at the time of my exam and discussed her care with me, which the patient consented to. He stated he noticed her supporting arm shaking at times and her eyes flickering from side to side, both of which resolved. Review of Systems Review of System
[2021-06-14] MEDS: FUROSEMIDE INJ 40 MG/4 ML VIAL 20 MG IV PUSH (16:27)
[2021-06-14] MEDS: RIVAROXABAN 15 MG TABLET PO (17:40)
[2021-06-14] MEDS: ONDANSETRON INJ 4 MG/2 ML VIAL IV PUSH (21:08)
[2021-06-15] VITALS (18 sets, daily range): BP systolic 101–142; BP diastolic 52–76; PULSE 71–114; RESP 18–24; TEMP 36.1–36.9; O2SAT 91–100
[2021-06-15] MEDS: METOPROLOL TARTRATE 12.5 MG TABLET PO ×5 (00:44→23:21)
[2021-06-15 05:17] LABS: Estimated CRCL calculation 50 ml/min; Estimated Glomerular Filt Rate > 60
[2021-06-15] MEDS: FLUTICASONE/UMECLIDIN/VILANTER 100-62.5-25 MCG ELLIPTA 1 PUFF INHALATION (08:15)
[2021-06-15] MEDS: FUROSEMIDE INJ 40 MG/4 ML VIAL 20 MG IV PUSH (08:26)
--- NOTE | 2021-06-15 09:59 | PM.PNCARD ---
Progress Note: A&P Assessment and Plan (1) Elevated troponin: Code(s): R77.8 - Other specified abnormalities of plasma proteins Status: Acute Assessment and Plan: Mildly elevated at .045 and trended down. Doubt ACS. Likely due to bradycardia and COPD. (2) Atrial fibrillation with slow ventricular response: Code(s): I48.91 - Unspecified atrial fibrillation Status: Acute Assessment and Plan: All 3 rate controlling medication on hold including Diltiazem, Metoprolol and Digoxin. Monitor HR today. If HR goes above 100 persistently, would resume Diltiazem first. Continue Xarelto. Her HR is rapid again, restarted Diltiazem 60 mg BID (reduced from every 6 hours due to pauses up to 4 seconds noted), and on Metoprolol Tartate 12.5 mg PO Q6 HR. (3) Chronic obstructive pulmonary disease: Code(s): J44.9 - Chronic obstructive pulmonary disease, unspecified Status: Acute (4) Essential hypertension: Code(s): I10 - Essential (primary) hypertension Status: Acute Assessment and Plan: Stable. (5) PAD (peripheral artery disease): Code(s): I73.9 - Peripheral vascular disease, unspecified Status: Acute (6) Diastolic dysfunction: Code(s): I51.89 - Other ill-defined heart diseases Status: Acute Assessment and Plan: Volume overloaded due to IVF. She got one dose of Lasix 20 mg IV yesterday, and agree with continuing that daily. Subjective Date/time seen: 06/15/21 09:59 Patient feels sob/congested. No chest pain. Exam Const: General: cooperative, healthy appearing and comfortable Resp: Auscultation: crackles, no rales, no rhonchi, wheezes and diminished lung sounds Cardio: Jugular venous distension: no JVD Rate: regular rate Rhythm: abnormal rhythm Heart sounds: no murmurs Peripheral pulses: dorsalis pedis present GI: GI Palp: No abdominal tenderness and Yes Soft to palpation Neuro: General: oriented to person, oriented to place and oriented to time Extrem: Right lower extremity: no edema Left lower extremity: no edema Objective Data Vital Signs Vital Signs: Vital Signs - 24 hr 06/14/21 10:00 06/14/21 12:00 06/14/21 14:00 Temperature 97.5 F L Pulse Rate 131 H 120 H 109 H Respiratory Rate 28 H Blood Pressure 115/52 L Pulse Oximetry 92 06/14/21 16:00 06/14/21 17:39 06/14/21 18:00 Temperature 97.2 F L Pulse Rate 88 124 H Respiratory Rate 24 H Blood Pressure 103/70 131/89 Pulse Oximetry 95 06/14/21 19:50 06/14/21 20:00 06/14/21 21:52 Temperature 97.7 F Pulse Rate 98 105 H Respiratory Rate 20 Blood Pressure 109/61 109/61 Pulse Oximetry 96 96 06/14/21 22:00 06/15/21 00:00 06/15/21 00:44 Temperature 97 F L Pulse Rate 96 96 86 Respiratory Rate 18 Blood Pressure 105/52 L Pulse Oximetry 96 06/15/21 02:00 06/15/21 02:53 06/15/21 04:00 Temperature 98.4 F Pulse Rate 90 97 Respiratory Rate 18 Blood Pressure 111/61 Pulse Oximetry 95 99 06/15/21 06:00 06/15/21 06:28 06/15/21 08:00 Temperature 97.6 F Pulse Rate 95 95 100 Respiratory Rate 24 H Blood Pressure 142/62 H Pulse Oximetry 95 06/15/21 08:15 Temperature Pulse Rate Respiratory Rate Blood Pressure Pulse Oximetry 94 Intake/Output Intake/Output: Intake & Output 06/12/21 06/13/21 06/14/21 06/15/21 23:59 23:59 23:59 23:59 Intake Total 2720 2700 2400 200 Output Total 010 617 7244 Balance 244 2343 730 200 Meds/Results Medications: Active Medications Generic Name Dose Route Start Last Admin Trade Name Freq PRN Reason Stop Dose Admin Acetaminophen 650 mg 06/11/21 19:41 Acetaminophen 325 Mg Tablet PO Q6H PRN Mild Pain (1-3) or Fever Albuterol 2 puff 06/11/21 22:32 Albuterol Sulfate (*Sp) Aerosol 1 Puff INHALATION Q4H PRN shortness of breath or wheezing Diltiazem HCl 60 mg 06/15/21 09:00 Diltiazem Hcl 60 Mg Tablet PO Q12HR MARÍA ELENA
[2021-06-15] MEDS: DONEPEZIL HCL 10 MG TABLET PO (10:10)
[2021-06-15] MEDS: dilTIAZem HCL 60 MG TABLET PO ×2 (10:10→20:22)
[2021-06-15] MEDS: MEMANTINE HCL XR 7 MG CAP 14 MG PO (10:10)
--- NOTE | 2021-06-15 13:15 | P.PNIM_ITS ---
Progress Note: A&P Assessment and Plan (1) CHF (congestive heart failure): Code(s): I50.9 - Heart failure, unspecified Status: Acute Assessment and Plan: * Patient's O2 requirements increased to 4 L this morning, but are currently back at 2 L. Patient was tired after her occupational therapy. * Yesterday's CXR shows congestive heart failure and bibasilar infiltrate and/or atelectasis. * 05/22 echo showed LVEF at 55-60%, mild AV sclerosis, severe pulmonary hypertension/ PAP 66 mm Hg * 20 mg Lasix IV daily renal function is normal. * Cardiology consulted and agreed with this plan * Monitor blood pressure * Daily intake and output * Daily weights (2) Atrial fibrillation with slow ventricular response: Code(s): I48.91 - Unspecified atrial fibrillation Status: Acute Assessment and Plan: * Patient is followed by Cardiology, telemetry shows A-Fib * She has been mildly tachycardic today, and has been restarted on diltiazem 60 mg q.6 hours, and metoprolol 12.5 mg q.6 hours. She has not been restarted on her digoxin, per cardiology's recommendations. * Digoxin level WNL, TSH WNL * Continue apixaban (3) Pneumonia: Code(s): J18.9 - Pneumonia, unspecified organism Status: Acute Assessment and Plan: * Patient became tachypneic yesterday. I suspect her new tachypnea is more related to a CHF exacerbation versus pneumonia. * Continues to have no leukocytosis or fever, COVID and flu negative, blood culture showed no growth to date, sputum culture showed few epithelial cells and few white blood cells, discontinued empiric cefepime and vanc. * Home O2 assessment closer to discharge. (4) Essential hypertension: Code(s): I10 - Essential (primary) hypertension Status: Acute Assessment and Plan: * Normotensive today. * Will add medications for blood pressure as needed per cardiology recommendations (5) Chronic obstructive pulmonary disease: Code(s): J44.9 - Chronic obstructive pulmonary disease, unspecified Status: Acute Assessment and Plan: * Plan as above * Breathing treatments q.4 hours p.r.n. (6) Hyperglycemia: Code(s): R73.9 - Hyperglycemia, unspecified Status: Acute Assessment and Plan: * A1c from this month was 5.9% * continue to monitor, consider starting low dose SSI as necessary. (7) Dark urine: Code(s): R82.998 - Other abnormal findings in urine Status: Acute Assessment and Plan: * UA showed 6-10 urine RBC, 4-6 WBC, no leuk esterase, no nitratess * Urine culture pending. Subjective Date/time seen: 06/15/21 13:15 85-year-old female history of AFib, dementia, COPD, here for shortness of breath. She had another episode of acute dyspnea and this morning, she feels better after her Lasix. She has productive cough. She worked with OT today without issues , and reports lower extremity swelling has gone away. She denies chest pain, Urinary changes, abdominal pain, fevers, or chills. [id number] was present today during exam, and I answered her questions. Review of Systems Review of Systems: All systems reviewed & are unremarkable except as noted in HPI and below Exam Narrative: GENERAL APPEARANCE: Alert and oriented x 3, in no apparent distress. HEENT: PERRL, EOMI. Sclerae anicteric. Moist mucous membranes. NECK: Supple. No J
--- NOTE | 2021-06-15 13:15 | PM.IMPN ---
Progress Note: A&P Assessment and Plan (1) CHF (congestive heart failure): Code(s): I50.9 - Heart failure, unspecified Status: Acute Assessment and Plan: Patient's O2 requirements increased to 4 L this morning, but are currently back at 2 L. Patient was tired after her occupational therapy. Yesterday's CXR shows congestive heart failure and bibasilar infiltrate and/or atelectasis. 05/22 echo showed LVEF at 55-60%, mild AV sclerosis, severe pulmonary hypertension/ PAP 66 mm Hg 20 mg Lasix IV daily renal function is normal. Cardiology consulted and agreed with this plan Monitor blood pressure Daily intake and output Daily weights (2) Atrial fibrillation with slow ventricular response: Code(s): I48.91 - Unspecified atrial fibrillation Status: Acute Assessment and Plan: Patient is followed by Cardiology, telemetry shows A-Fib She has been mildly tachycardic today, and has been restarted on diltiazem 60 mg q.6 hours, and metoprolol 12.5 mg q.6 hours. She has not been restarted on her digoxin, per cardiology's recommendations. Digoxin level WNL, TSH WNL Continue apixaban (3) Pneumonia: Code(s): J18.9 - Pneumonia, unspecified organism Status: Acute Assessment and Plan: Patient became tachypneic yesterday. I suspect her new tachypnea is more related to a CHF exacerbation versus pneumonia. Continues to have no leukocytosis or fever, COVID and flu negative, blood culture showed no growth to date, sputum culture showed few epithelial cells and few white blood cells, discontinued empiric cefepime and vanc. Home O2 assessment closer to discharge. (4) Essential hypertension: Code(s): I10 - Essential (primary) hypertension Status: Acute Assessment and Plan: Normotensive today. Will add medications for blood pressure as needed per cardiology recommendations (5) Chronic obstructive pulmonary disease: Code(s): J44.9 - Chronic obstructive pulmonary disease, unspecified Status: Acute Assessment and Plan: Plan as above Breathing treatments q.4 hours p.r.n. (6) Hyperglycemia: Code(s): R73.9 - Hyperglycemia, unspecified Status: Acute Assessment and Plan: A1c from this month was 5.9% continue to monitor, consider starting low dose SSI as necessary. (7) Dark urine: Code(s): R82.998 - Other abnormal findings in urine Status: Acute Assessment and Plan: UA showed 6-10 urine RBC, 4-6 WBC, no leuk esterase, no nitratess Urine culture pending. Subjective Date/time seen: 06/15/21 13:15 85-year-old female history of AFib, dementia, COPD, here for shortness of breath. She had another episode of acute dyspnea and this morning, she feels better after her Lasix. She has productive cough. She worked with OT today without issues , and reports lower extremity swelling has gone away. She denies chest pain, Urinary changes, abdominal pain, fevers, or chills. [id number] was present today during exam, and I answered her questions. Review of Systems Review of Systems: All systems reviewed & are unremarkable except as noted in HPI and below Exam Narrative: GENERAL APPEARANCE: Alert and oriented x 3, in no apparent distress. HEENT: PERRL, EOMI. Sclerae anicteric. Moist mucous membranes. NECK: Supple. No JVD or obvious carotid bruits. RESPIRATORY: Respirations are labored. Left-sided crackles through mid lung. CARDIOVASCULAR: irregular rhythm, with normal S1-S2. No murmurs, gallops, or rubs. GASTROINTESTINAL: Soft, flat, and benign. No mass, tenderness, guarding, or rebound. No organomegaly or hernia. Bowel sounds are present. SKIN: Warm, dry, well perfused. Good turgor. No lesions, nodules, or rashes noted. Warm and dry. No rash or lesions on limited exam. EXTREMITIES: No cyanosis, clubbing, or edema. Radial and pedal
[2021-06-15 13:48] LABS: Basophils Percent Auto 0.1 % (0.2-1.2); Eosinophils Absolute Auto 0.2 K/mm3 (0-0.3); Hematocrit 33.6 % (37.0-47.0); Hemoglobin 10.1 g/dL (12.0-15.0); Immature Granulocyte Absolute 0.08 K/mm3 (0.00-0.031); Lymphocytes Absolute Auto 0.61 K/mm3 (0.9-3.2); Lymphocytes Percent Auto 7.5 % (18.3-44.2); Mean Corpuscular HGB Conc 30.1 g/dl (32-36); Mean Corpuscular Hemoglobin 28.4 pg (26-34); Mean Corpuscular Volume 94.4 fl (80-100); Mean Platelet Volume 9.9 fl (7.4-10.4); Monocytes Absolute Auto 0.7 K/mm3 (0.1-0.6); Monocytes Percent Auto 8.7 % (2.6-8.5); Neutrophils Absolute Auto 6.6 K/mm3 (1.3-6.7); Neutrophils Percent Auto 80.7 % (45.5-73.1); Platelet Count Result 219 k/mm3 (150-375); Red Blood Count 3.56 M/mm3 (4.2-5.4); Red Cell Distribution Width 15.7 % (11.5-14.5); White Blood Count 8.2 K/mm3 (4.5-10.0)
[2021-06-15 14:01] LABS: Alanine Aminotransferase 19 U/L (4-35); Albumin Level 3.2 g/dL (3.5-5.1); Alkaline Phosphatase 73 U/L (38-126); Anion Gap 3 mmol/L (8-16); Aspartate Amino Transferase 22 U/L (14-36); Blood Urea Nitrogen 22 mg/dL (7-17); Calcium 8.3 mg/dL (8.4-10.2); Carbon Dioxide 37 mmol/L (22-30); Chloride 97 mmol/L (98-107); Estimated CRCL calculation 38 ml/min; Estimated Glomerular Filt Rate > 60; Glucose 157 mg/dL (65-110); Potassium 4.1 mmol/L (3.4-5.0); Sodium 137 mmol/L (137-145)
--- NOTE | 2021-06-15 14:49 | PCCCNOTE ---
On 06/15/21, the student, [Ena Jones], provided care and completed [facility] documentation on this patient. I have reviewed the student's documentation and agree with the findings.
[2021-06-15] MEDS: RIVAROXABAN 15 MG TABLET PO (18:01)
[2021-06-16] VITALS (19 sets, daily range): BP systolic 104–118; BP diastolic 48–83; PULSE 66–121; RESP 16–24; TEMP 36–36.4; O2SAT 87–97
[2021-06-16 05:09] LABS: Basophils Percent Auto 0.2 % (0.2-1.2); Eosinophils Absolute Auto 0.3 K/mm3 (0-0.3); Eosinophils Percent Auto 3.5 % (0-4.4); Hematocrit 34.1 % (37.0-47.0); Hemoglobin 10.3 g/dL (12.0-15.0); Immature Granulocyte Absolute 0.07 K/mm3 (0.00-0.031); Immature Granulocyte Percent A 0.7 % (0-0.5); Lymphocytes Absolute Auto 1.03 K/mm3 (0.9-3.2); Lymphocytes Percent Auto 10.8 % (18.3-44.2); Mean Corpuscular HGB Conc 30.2 g/dl (32-36); Mean Corpuscular Volume 92.7 fl (80-100); Mean Platelet Volume 10.1 fl (7.4-10.4); Monocytes Absolute Auto 0.9 K/mm3 (0.1-0.6); Monocytes Percent Auto 9.7 % (2.6-8.5); Neutrophils Absolute Auto 7.2 K/mm3 (1.3-6.7); Neutrophils Percent Auto 75.1 % (45.5-73.1); Platelet Count Result 303 k/mm3 (150-375); Red Blood Count 3.68 M/mm3 (4.2-5.4); Red Cell Distribution Width 15.8 % (11.5-14.5); White Blood Count 9.5 K/mm3 (4.5-10.0)
[2021-06-16 05:30] LABS: Alanine Aminotransferase 17 U/L (4-35); Albumin Level 3.2 g/dL (3.5-5.1); Alkaline Phosphatase 76 U/L (38-126); Anion Gap 3 mmol/L (8-16); Aspartate Amino Transferase 19 U/L (14-36); Bilirubin,Total 0.8 mg/dL (0.2-1.3); Blood Urea Nitrogen 29 mg/dL (7-17); Calcium 8.3 mg/dL (8.4-10.2); Carbon Dioxide 35 mmol/L (22-30); Chloride 98 mmol/L (98-107); Estimated CRCL calculation 38 ml/min; Estimated Glomerular Filt Rate > 60; Glucose 137 mg/dL (65-110); Potassium 4.4 mmol/L (3.4-5.0); Sodium 136 mmol/L (137-145)
[2021-06-16] MEDS: METOPROLOL TARTRATE 12.5 MG TABLET PO (05:30)
--- NOTE | 2021-06-16 07:59 | PM.PNCARD ---
Progress Note: A&P Assessment and Plan (1) Elevated troponin: Code(s): R77.8 - Other specified abnormalities of plasma proteins Status: Acute Assessment and Plan: Mildly elevated at .045 and trended down. Doubt ACS. Likely due to bradycardia and COPD. (2) Atrial fibrillation with slow ventricular response: Code(s): I48.91 - Unspecified atrial fibrillation Status: Acute Assessment and Plan: All 3 rate controlling medication on hold including Diltiazem, Metoprolol and Digoxin. Monitor HR today. If HR goes above 100 persistently, would resume Diltiazem first. Continue Xarelto. HR controlled without significant pauses on Diltiazem 60 mg PO BID and Metoprolol 12.5 mg every 6 hrs. Change Metoprolol 25 mg PO every 12 hrs. Have patient ambulate and see how she does. (3) Chronic obstructive pulmonary disease: Code(s): J44.9 - Chronic obstructive pulmonary disease, unspecified Status: Acute (4) Essential hypertension: Code(s): I10 - Essential (primary) hypertension Status: Acute Assessment and Plan: Stable. (5) PAD (peripheral artery disease): Code(s): I73.9 - Peripheral vascular disease, unspecified Status: Acute (6) Diastolic dysfunction: Code(s): I51.89 - Other ill-defined heart diseases Status: Acute Assessment and Plan: Volume overloaded due to IVF. She got one dose of Lasix 20 mg IV yesterday, and agree with continuing that daily. Appears euvolemic today. Change Lasix 20 mg PO daily. Subjective Date/time seen: 06/16/21 07:59 Denies chest pain or sob. Exam Const: General: cooperative, healthy appearing and comfortable Resp: Auscultation: crackles, no rales, no rhonchi, wheezes and diminished lung sounds Cardio: Jugular venous distension: no JVD Rate: regular rate Rhythm: abnormal rhythm Heart sounds: no murmurs Peripheral pulses: dorsalis pedis present GI: GI Palp: No abdominal tenderness and Yes Soft to palpation Neuro: General: oriented to person, oriented to place and oriented to time Extrem: Right lower extremity: no edema Left lower extremity: no edema Objective Data Vital Signs Vital Signs: Vital Signs - 24 hr 06/15/21 08:00 06/15/21 08:15 06/15/21 10:00 Temperature 97.6 F Pulse Rate 76 104 H Respiratory Rate 24 H Blood Pressure 142/62 H Pulse Oximetry 95 94 06/15/21 12:00 06/15/21 14:00 06/15/21 16:00 Temperature 97.4 F L 97.5 F L Pulse Rate 112 H 105 H 95 Respiratory Rate 18 24 H Blood Pressure 125/76 103/65 Pulse Oximetry 100 100 06/15/21 18:00 06/15/21 19:33 06/15/21 20:00 Temperature 97.9 F Pulse Rate 114 H 91 Respiratory Rate 24 H Blood Pressure 101/73 Pulse Oximetry 95 92 06/15/21 22:00 06/15/21 23:21 06/16/21 00:00 Temperature 97.2 F L Pulse Rate 88 97 99 Respiratory Rate 24 H Blood Pressure 117/63 Pulse Oximetry 96 06/16/21 02:00 06/16/21 04:00 06/16/21 04:31 Temperature 96.8 F L Pulse Rate 97 76 Respiratory Rate 20 Blood Pressure 109/48 L Pulse Oximetry 91 95 06/16/21 05:30 06/16/21 06:00 Temperature Pulse Rate 92 98 Respiratory Rate Blood Pressure Pulse Oximetry Intake/Output Intake/Output: Intake & Output 06/13/21 06/14/21 06/15/21 06/16/21 23:59 23:59 23:59 23:59 Intake Total 2700 2400 1060 100 Output Total 351 1670 700 250 Balance 2349 730 360 -150 Meds/Results Medications: Active Medications Generic Name Dose Route Start Last Admin Trade Name Freq PRN Reason Stop Dose Admin Acetaminophen 650 mg 06/11/21 19:41 Acetaminophen 325 Mg Tablet PO Q6H PRN Mild Pain (1-3) or Fever Albuterol 2 puff 06/11/21 22:32 Albuterol Sulfate (*Sp) Aerosol 1 Puff INHALATION Q4H PRN shortness of breath or wheezing Diltiazem HCl 60 mg 06/15/21 09:00 06/15/21 20:22 Diltiazem Hcl 60 Mg Tablet PO 60 mg Q12HR MARÍA ELENA Administration Donepezil HCl 10 mg 04
[2021-06-16] MEDS: FLUTICASONE/UMECLIDIN/VILANTER 100-62.5-25 MCG ELLIPTA 1 PUFF INHALATION (08:16)
[2021-06-16] MEDS: MEMANTINE HCL XR 7 MG CAP 14 MG PO (08:53)
[2021-06-16] MEDS: DONEPEZIL HCL 10 MG TABLET PO (08:54)
[2021-06-16] MEDS: dilTIAZem HCL 60 MG TABLET PO ×2 (08:54→20:50)
[2021-06-16] MEDS: FUROSEMIDE 20 MG TABLET PO (08:54)
[2021-06-16] MEDS: METOPROLOL TARTRATE 25 MG TABLET PO ×2 (09:57→20:50)
--- NOTE | 2021-06-16 14:11 | PCCCNOTE ---
On 06/16/21, the student, [Stephani Jones], provided care and completed [facility] documentation on this patient. I have reviewed the student's documentation and agree with the findings.
--- NOTE | 2021-06-16 14:24 | P.PNIM_ITS ---
Progress Note: A&P Assessment and Plan (1) CHF (congestive heart failure): Code(s): I50.9 - Heart failure, unspecified Status: Acute Assessment and Plan: * Patient on 3L O2 this morning. * Repeat CXR showed little change. * / echo showed LVEF at 55-60%, mild AV sclerosis, severe pulmonary hypertension/ PAP 66 mm Hg * 20 mg Lasix PO daily, renal function is normal. * Monitor blood pressure * Daily intake and output * Daily weights (2) Atrial fibrillation with slow ventricular response: Code(s): I48.91 - Unspecified atrial fibrillation Status: Acute Assessment and Plan: * Patient is followed by Cardiology, telemetry shows A-Fib * She has been mildly tachycardic today, and has been restarted on diltiazem 60 mg q.6 hours, and metoprolol increased to 25mg q.6 hours. She has not been restarted on her digoxin, per cardiology's recommendations. * Continue apixaban (3) Pneumonia: Code(s): J18.9 - Pneumonia, unspecified organism Status: Acute Assessment and Plan: * Patient became tachypneic yesterday. I suspect her new tachypnea is more related to a CHF exacerbation versus pneumonia. * Continues to have no leukocytosis or fever, COVID and flu negative, blood culture showed no growth to date, sputum culture showed few epithelial cells and few white blood cells, discontinued empiric cefepime and vanc. * Home O2 assessment closer to discharge. (4) Essential hypertension: Code(s): I10 - Essential (primary) hypertension Status: Acute Assessment and Plan: * Normotensive today. * Will add medications for blood pressure as needed per cardiology recommendations (5) Chronic obstructive pulmonary disease: Code(s): J44.9 - Chronic obstructive pulmonary disease, unspecified Status: Acute Assessment and Plan: * Plan as above * Breathing treatments q.4 hours p.r.n. (6) Hyperglycemia: Code(s): R73.9 - Hyperglycemia, unspecified Status: Acute Assessment and Plan: * A1c from this month was 5.9% * continue to monitor, consider starting low dose SSI as necessary. (7) Dark urine: Code(s): R82.998 - Other abnormal findings in urine Status: Acute Assessment and Plan: * UA showed 6-10 urine RBC, 4-6 WBC, no leuk esterase, no nitratess * Urine culture pending. Subjective Date/time seen: 06/16/21 14:2 Interval history: 85 yo female w/ hx of atrial fibrillation anticoagulated on xaralto, COPD on baseline 2L oxygen, diastolic dysfunction, peripheral arterial disease, and pulmonary hypertension, admitted for afib w/ slow ventricular response. Pt is feeling better today. She was very tired this morning with a hard time breathing, and was slightly confused in the morning. No cp/palpitations/N/V/abd pain. Review of Systems Review of Systems: All systems reviewed & are unremarkable except as noted in HPI and below Exam Narrative: GENERAL APPEARANCE: Alert and oriented x 3, in no apparent distress. HEENT: PERRL, EOMI. Sclerae anicteric. Moist mucous membranes. NECK: Supple. No JVD or obvious carotid bruits. RESPIRATORY: Respirations are nonlabored. Breath are quiet. CARDIOVASCULAR: Regular rate and rhythm with normal S1-S2. No murmurs, gallops, or rubs. GASTROINTESTINAL: Soft, flat, and benign. No mass, tenderness, guarding, or rebound. N
--- NOTE | 2021-06-16 14:24 | PM.IMPN ---
Progress Note: A&P Assessment and Plan (1) CHF (congestive heart failure): Code(s): I50.9 - Heart failure, unspecified Status: Acute Assessment and Plan: Patient on 3L O2 this morning. Repeat CXR showed little change. 05/22 echo showed LVEF at 55-60%, mild AV sclerosis, severe pulmonary hypertension/ PAP 66 mm Hg 20 mg Lasix PO daily, renal function is normal. Monitor blood pressure Daily intake and output Daily weights (2) Atrial fibrillation with slow ventricular response: Code(s): I48.91 - Unspecified atrial fibrillation Status: Acute Assessment and Plan: Patient is followed by Cardiology, telemetry shows A-Fib She has been mildly tachycardic today, and has been restarted on diltiazem 60 mg q.6 hours, and metoprolol increased to 25mg q.6 hours. She has not been restarted on her digoxin, per cardiology's recommendations. Continue apixaban (3) Pneumonia: Code(s): J18.9 - Pneumonia, unspecified organism Status: Acute Assessment and Plan: Patient became tachypneic yesterday. I suspect her new tachypnea is more related to a CHF exacerbation versus pneumonia. Continues to have no leukocytosis or fever, COVID and flu negative, blood culture showed no growth to date, sputum culture showed few epithelial cells and few white blood cells, discontinued empiric cefepime and vanc. Home O2 assessment closer to discharge. (4) Essential hypertension: Code(s): I10 - Essential (primary) hypertension Status: Acute Assessment and Plan: Normotensive today. Will add medications for blood pressure as needed per cardiology recommendations (5) Chronic obstructive pulmonary disease: Code(s): J44.9 - Chronic obstructive pulmonary disease, unspecified Status: Acute Assessment and Plan: Plan as above Breathing treatments q.4 hours p.r.n. (6) Hyperglycemia: Code(s): R73.9 - Hyperglycemia, unspecified Status: Acute Assessment and Plan: A1c from this month was 5.9% continue to monitor, consider starting low dose SSI as necessary. (7) Dark urine: Code(s): R82.998 - Other abnormal findings in urine Status: Acute Assessment and Plan: UA showed 6-10 urine RBC, 4-6 WBC, no leuk esterase, no nitratess Urine culture pending. Subjective Date/time seen: 06/16/21 14:2 Interval history: 85 yo female w/ hx of atrial fibrillation anticoagulated on xaralto, COPD on baseline 2L oxygen, diastolic dysfunction, peripheral arterial disease, and pulmonary hypertension, admitted for afib w/ slow ventricular response. Pt is feeling better today. She was very tired this morning with a hard time breathing, and was slightly confused in the morning. No cp/palpitations/N/V/abd pain. Review of Systems Review of Systems: All systems reviewed & are unremarkable except as noted in HPI and below Exam Narrative: GENERAL APPEARANCE: Alert and oriented x 3, in no apparent distress. HEENT: PERRL, EOMI. Sclerae anicteric. Moist mucous membranes. NECK: Supple. No JVD or obvious carotid bruits. RESPIRATORY: Respirations are nonlabored. Breath are quiet. CARDIOVASCULAR: Regular rate and rhythm with normal S1-S2. No murmurs, gallops, or rubs. GASTROINTESTINAL: Soft, flat, and benign. No mass, tenderness, guarding, or rebound. No organomegaly or hernia. Bowel sounds are present. SKIN: Warm, dry, well perfused. Good turgor. No lesions, nodules, or rashes noted. Warm and dry. No rash or lesions on limited exam. EXTREMITIES: No cyanosis, clubbing. Mild edema. Radial and pedal pulses intact. NEUROLOGICAL: Alert. Cranial nerves 2-12 are grossly intact. No gross focal deficits to casual conversation. PSYCHIATRIC: Pleasant and cooperative with normal mood and affect. Objective Data Vital Signs Vital Signs: Vital Signs - 24 hr 06/15/21 16:00 06/15/21
[2021-06-16] MEDS: RIVAROXABAN 15 MG TABLET PO (17:16)
[2021-06-17] VITALS (24 sets, daily range): BP systolic 108–131; BP diastolic 52–82; PULSE 60–128; RESP 16–20; TEMP 35.7–36.6; O2SAT 73–100
[2021-06-17] MEDS: FLUTICASONE/UMECLIDIN/VILANTER 100-62.5-25 MCG ELLIPTA 1 PUFF INHALATION (08:11)
--- NOTE | 2021-06-17 08:26 | PM.PNCARD ---
Progress Note: A&P Assessment and Plan (1) Elevated troponin: Code(s): R77.8 - Other specified abnormalities of plasma proteins Status: Acute Assessment and Plan: Mildly elevated at .045 and trended down. Doubt ACS. Likely due to bradycardia and COPD. (2) Atrial fibrillation with slow ventricular response: Code(s): I48.91 - Unspecified atrial fibrillation Status: Acute Assessment and Plan: All 3 rate controlling medication on hold including Diltiazem, Metoprolol and Digoxin. Monitor HR today. If HR goes above 100 persistently, would resume Diltiazem first. Continue Xarelto. HR controlled without significant pauses on Diltiazem 60 mg PO every 12 hours and Metoprolol 25 mg every 12 hours. Leave Digoxin off. May d/c home from cardiology standpoint and f/u with me in 1 week. (3) Chronic obstructive pulmonary disease: Code(s): J44.9 - Chronic obstructive pulmonary disease, unspecified Status: Acute (4) Essential hypertension: Code(s): I10 - Essential (primary) hypertension Status: Acute Assessment and Plan: Stable. (5) PAD (peripheral artery disease): Code(s): I73.9 - Peripheral vascular disease, unspecified Status: Acute (6) Diastolic dysfunction: Code(s): I51.89 - Other ill-defined heart diseases Status: Acute Assessment and Plan: Volume overloaded due to IVF. Appears euvolemic today. Continue Lasix 20 mg PO daily. Subjective Date/time seen: 06/17/21 08:26 Denies chest pain or sob. Stated yesterday morning she had nausea but not today. Exam Const: General: cooperative, healthy appearing and comfortable Resp: Auscultation: crackles, no rales, no rhonchi, wheezes and diminished lung sounds Cardio: Jugular venous distension: no JVD Rate: regular rate Rhythm: abnormal rhythm Heart sounds: no murmurs Peripheral pulses: dorsalis pedis present GI: GI Palp: No abdominal tenderness and Yes Soft to palpation Neuro: General: oriented to person, oriented to place and oriented to time Extrem: Right lower extremity: no edema Left lower extremity: no edema Objective Data Vital Signs Vital Signs: Vital Signs - 24 hr 06/16/21 09:57 06/16/21 09:58 06/16/21 10:00 Temperature Pulse Rate 121 H 103 H Respiratory Rate Blood Pressure 118/83 Pulse Oximetry 06/16/21 12:00 06/16/21 14:00 06/16/21 16:00 Temperature 97.5 F L 96.9 F L Pulse Rate 119 H 114 H 115 H Respiratory Rate 16 20 Blood Pressure 104/70 105/59 L Pulse Oximetry 94 92 06/16/21 20:00 06/16/21 20:43 06/16/21 20:50 Temperature 97.3 F L Pulse Rate 95 90 Respiratory Rate 16 Blood Pressure 115/62 Pulse Oximetry 94 96 06/16/21 22:00 06/16/21 23:18 06/17/21 00:00 Temperature 97.3 F L Pulse Rate 82 66 87 Respiratory Rate 16 Blood Pressure 110/57 L Pulse Oximetry 97 97 06/17/21 02:00 06/17/21 03:20 06/17/21 04:00 Temperature 97 F L Pulse Rate 80 97 91 Respiratory Rate 16 Blood Pressure 111/52 L Pulse Oximetry 91 91 06/17/21 06:00 06/17/21 08:00 06/17/21 08:13 Temperature 96.3 F L Pulse Rate 91 60 97 Respiratory Rate 20 Blood Pressure 131/81 Pulse Oximetry 93 95 Intake/Output Intake/Output: Intake & Output 06/14/21 06/15/21 06/16/21 06/17/21 23:59 23:59 23:59 23:59 Intake Total 2400 1060 1000 Output Total 1670 700 250 200 Balance 730 360 750 -200 Meds/Results Medications: Active Medications Generic Name Dose Route Start Last Admin Trade Name Freq PRN Reason Stop Dose Admin Acetaminophen 650 mg 06/11/21 19:41 Acetaminophen 325 Mg Tablet PO Q6H PRN Mild Pain (1-3) or Fever Albuterol 2 puff 06/11/21 22:32 Albuterol Sulfate (*Sp) Aerosol 1 Puff INHALATION Q4H PRN shortness of breath or wheezing Diltiazem HCl 60 mg 06/15/21 09:00 06/16/21 20:50 Diltiazem Hcl 60 Mg Tablet PO 60 mg Q12HR MARÍA ELENA Administration Donepezil H
[2021-06-17] MEDS: MEMANTINE HCL XR 7 MG CAP 14 MG PO (09:58)
[2021-06-17] MEDS: FUROSEMIDE 20 MG TABLET PO ×2 (09:58→16:58)
[2021-06-17] MEDS: DONEPEZIL HCL 10 MG TABLET PO (09:58)
[2021-06-17] MEDS: METOPROLOL TARTRATE 25 MG TABLET PO ×2 (09:58→21:35)
[2021-06-17] MEDS: dilTIAZem HCL 60 MG TABLET PO ×2 (09:58→21:35)
--- NOTE | 2021-06-17 09:58 | PM.IMPN ---
Progress Note: A&P Additional Plan (1) CHF (congestive heart failure): Patient on 2L/min of O2 this morning. Repeat CXR showed little change. 05/22 echo showed LVEF at 55-60%, mild AV sclerosis, severe pulmonary hypertension/ PAP 66 mm Hg increase 20 mg Lasix PO to BID given rales. crackles on chest exam today. renal function is normal. Monitor blood pressure Daily intake and output Daily weights (2) Atrial fibrillation with slow ventricular response: Code(s): I48.91 - Unspecified atrial fibrillation Status: Acute Assessment and Plan: Patient is followed by Cardiology, telemetry shows A-Fib rate controlled, continue diltiazem 60 mg and metoprolol 25mg q 12 hours. She has not been restarted on her digoxin, per cardiology's recommendations. Continue apixaban (3) Pneumonia: no leukocytosis or fever, COVID and flu negative, blood culture showed no growth to date, sputum culture showed few epithelial cells and few white blood cells, s/p empiric cefepime and vanc. Home O2 assessment closer to discharge. (4) Essential hypertension: Code(s): I10 - Essential (primary) hypertension Status: Acute Assessment and Plan: continue diltiazem 60 mg and metoprolol 25mg q 12 hours per cardiology recommendations (5) Chronic obstructive pulmonary disease: Code(s): J44.9 - Chronic obstructive pulmonary disease, unspecified Status: Acute Assessment and Plan: Plan as above Breathing treatments q.4 hours p.r.n. (6) Hyperglycemia: Code(s): R73.9 - Hyperglycemia, unspecified Status: Acute Assessment and Plan: A1c from this month was 5.9% continue to monitor, consider starting low dose SSI as necessary. (7) Dark urine: Code(s): R82.998 - Other abnormal findings in urine Status: Acute Assessment and Plan: UA showed 6-10 urine RBC, 4-6 WBC, no leuk esterase, no nitrates Urine culture pending. Time Spent With Patient Time with patient: 15 - 25 minutes Subjective Date/time seen: 06/17/21 09:58 Patient seen sitting up in bed. Her son and daughter in law were at bedside visiting. All questions were answered. Exam Const: General: comfortable and no acute distress Resp: Effort & Inspection: normal respiratory effort and able to speak in complete sentences Auscultation: crackles Cardio: Rate: regular rate Rhythm: regular rhythm Heart sounds: S1 normal heart sound present and S2 normal heart sound present GI: Inspection: normal to inspection GI Palp: No abdominal tenderness and Yes Soft to palpation Auscultation: normal bowel sounds Extrem: General: normal to inspection Objective Data Vital Signs Vital Signs: Vital Signs - 24 hr 06/16/21 10:00 06/16/21 12:00 06/16/21 14:00 Temperature 97.5 F L Pulse Rate 103 H 119 H 114 H Respiratory Rate 16 Blood Pressure 104/70 Pulse Oximetry 94 06/16/21 16:00 06/16/21 20:00 06/16/21 20:43 Temperature 96.9 F L 97.3 F L Pulse Rate 115 H 95 Respiratory Rate 20 16 Blood Pressure 105/59 L 115/62 Pulse Oximetry 92 94 96 06/16/21 20:50 06/16/21 22:00 06/16/21 23:18 Temperature 97.3 F L Pulse Rate 90 82 66 Respiratory Rate 16 Blood Pressure 110/57 L Pulse Oximetry 97 06/17/21 00:00 06/17/21 02:00 06/17/21 03:20 Temperature 97 F L Pulse Rate 87 80 97 Respiratory Rate 16 Blood Pressure 111/52 L Pulse Oximetry 97 91 06/17/21 04:00 06/17/21 06:00 06/17/21 08:00 Temperature 96.3 F L Pulse Rate 91 91 60 Respiratory Rate 20 Blood Pressure 131/81 Pulse Oximetry 91 93 06/17/21 08:13 Temperature Pulse Rate 97 Respiratory Rate Blood Pressure Pulse Oximetry 95 Intake/Output Intake/Output: Intake & Output 06/14/21 06/15/21 06/16/21 06/17/21 23:59 23:59 23:59 23:59 Intake Total 2400 1060 1000 Output Total 1670 700 250 200 Balance 730 360 750 -200 Meds/Results Medications: Active Medications Generic Name Dose Route Start Last Admi
[2021-06-17] MEDS: RIVAROXABAN 15 MG TABLET PO (16:58)
[2021-06-17 20:26] LABS: Magnesium 1.9 mg/dL (1.6-2.3)
[2021-06-17] MEDS: METOPROLOL TARTRATE 12.5 MG TABLET PO (21:36)
[2021-06-17] MEDS: MAGNESIUM OXIDE 400 MG TABLET PO (21:43)
[2021-06-18] VITALS (20 sets, daily range): BP systolic 104–118; BP diastolic 61–80; PULSE 70–130; RESP 16–28; TEMP 36.1–36.6; O2SAT 90–97
--- NOTE | 2021-06-18 07:44 | PM.PNCARD ---
Progress Note: A&P Assessment and Plan (1) Elevated troponin: Code(s): R77.8 - Other specified abnormalities of plasma proteins Status: Acute Assessment and Plan: Mildly elevated at .045 and trended down. Doubt ACS. Likely due to bradycardia and COPD. (2) Atrial fibrillation with slow ventricular response: Code(s): I48.91 - Unspecified atrial fibrillation Status: Acute Assessment and Plan: All 3 rate controlling medication on hold including Diltiazem, Metoprolol and Digoxin. Monitor HR today. If HR goes above 100 persistently, would resume Diltiazem first. Continue Xarelto. HR controlled yesterday morning until about 2:30 pm then she became tachycardic again. On Diltiazem 60 mg PO every 12 hours and increased Metoprolol 37.5 mg every 12 hours. Leave Digoxin off. (3) Chronic obstructive pulmonary disease: Code(s): J44.9 - Chronic obstructive pulmonary disease, unspecified Status: Acute Assessment and Plan: Decrease breath sounds probably related to COPD. Inhalers or neb treatment as needed. (4) Essential hypertension: Code(s): I10 - Essential (primary) hypertension Status: Acute Assessment and Plan: Stable. (5) PAD (peripheral artery disease): Code(s): I73.9 - Peripheral vascular disease, unspecified Status: Acute (6) Diastolic dysfunction: Code(s): I51.89 - Other ill-defined heart diseases Status: Acute Assessment and Plan: Appears euvolemic today. Stop Lasix. (7) NSVT (nonsustained ventricular tachycardia): Code(s): I47.2 - Ventricular tachycardia Status: Acute Assessment and Plan: She had 26 beat run 06/17/21 at around 6:30 pm. Mag is 1.9. Started on Mag Ox 400 mg PO daily to keep Mag>2. Check BMP. Subjective Date/time seen: 06/18/21 07:44 She appears mentally withdrawn. Not confused. No chest pains. Has chronic sob due to COPD. Exam Const: General: cooperative, comfortable and other (mentally withdrawn) Resp: Auscultation: crackles, no rales, no rhonchi, wheezes and diminished lung sounds Cardio: Jugular venous distension: no JVD Rate: tachycardic Rhythm: abnormal rhythm Heart sounds: no murmurs Peripheral pulses: dorsalis pedis present GI: GI Palp: No abdominal tenderness and Yes Soft to palpation Neuro: General: oriented to person, oriented to place and oriented to time Extrem: Right lower extremity: no edema Left lower extremity: no edema Objective Data Vital Signs Vital Signs: Vital Signs - 24 hr 06/17/21 08:00 06/17/21 08:13 06/17/21 09:58 Temperature 96.3 F L Pulse Rate 110 H 97 86 Respiratory Rate 20 Blood Pressure 131/81 Pulse Oximetry 91 95 06/17/21 10:00 06/17/21 12:00 06/17/21 14:00 Temperature 96.7 F L Pulse Rate 99 111 H 100 Respiratory Rate 20 Blood Pressure 118/58 L Pulse Oximetry 91 84 L 06/17/21 14:03 06/17/21 15:56 06/17/21 16:00 Temperature 97.0 F L Pulse Rate 118 H 118 H Respiratory Rate 16 Blood Pressure 113/66 Pulse Oximetry 90 95 06/17/21 18:00 06/17/21 18:07 06/17/21 18:08 Temperature Pulse Rate 110 H Respiratory Rate Blood Pressure Pulse Oximetry 73 L 91 06/17/21 18:33 06/17/21 20:00 06/17/21 21:35 Temperature 97.9 F Pulse Rate 128 H 102 H 125 H Respiratory Rate 16 Blood Pressure 108/82 Pulse Oximetry 97 06/17/21 21:36 06/17/21 22:00 06/17/21 23:04 Temperature 96.9 F L Pulse Rate 125 H 111 H 117 H Respiratory Rate 20 Blood Pressure 113/68 Pulse Oximetry 97 06/17/21 23:05 06/18/21 00:00 06/18/21 02:00 Temperature Pulse Rate 107 H 111 H Respiratory Rate Blood Pressure Pulse Oximetry 96 97 06/18/21 03:24 06/18/21 04:00 06/18/21 06:00 Temperature 97 F L Pulse Rate 130 H 107 H 114 H Respiratory Rate 16 Blood Pressure 118/73 Pulse Oximetry 96 96 06/18/21 06:40 Temperature 97.5 F L Pulse Rate 122 H Respiratory Rate
[2021-06-18] MEDS: FLUTICASONE/UMECLIDIN/VILANTER 100-62.5-25 MCG ELLIPTA 1 PUFF INHALATION (08:07)
[2021-06-18 08:32] LABS: Anion Gap 3 mmol/L (8-16); Blood Urea Nitrogen 35 mg/dL (7-17); Calcium 7.7 mg/dL (8.4-10.2); Carbon Dioxide 37 mmol/L (22-30); Chloride 94 mmol/L (98-107); Estimated CRCL calculation 43 ml/min; Estimated Glomerular Filt Rate > 60; Glucose 139 mg/dL (65-110); Sodium 134 mmol/L (137-145)
[2021-06-18] MEDS: MEMANTINE HCL XR 7 MG CAP 14 MG PO (09:07)
[2021-06-18] MEDS: METOPROLOL TARTRATE 25 MG TABLET PO ×2 (09:07→20:47)
[2021-06-18] MEDS: DONEPEZIL HCL 10 MG TABLET PO (09:08)
[2021-06-18] MEDS: METOPROLOL TARTRATE 12.5 MG TABLET PO ×2 (09:08→20:47)
[2021-06-18] MEDS: MAGNESIUM OXIDE 400 MG TABLET PO (09:08)
[2021-06-18] MEDS: dilTIAZem HCL 60 MG TABLET PO ×2 (09:08→20:47)
[2021-06-18 09:18] LABS: Fractional Inspired Oxygen 50 %; HCO3 VBG 31.8 mEq/l (24.0-30.0); PCO2 VBG 46.1 mmHg (42.0-48.0); PO2 VBG 31.4 mmHg (35.0-45.0)
[2021-06-18 09:20] LABS: Device NASAL CANNULA; pH VBG 7.457 (7.300-7.400)
[2021-06-18 09:36] LABS: Magnesium 2.1 mg/dL (1.6-2.3)
[2021-06-18] MEDS: SODIUM CHLORIDE 0.9% IV 250 ML 100 ML IV CONT (14:25)
--- NOTE | 2021-06-18 16:19 | PM.IMPN ---
Progress Note: A&P Assessment and Plan (1) CHF (congestive heart failure): Code(s): I50.9 - Heart failure, unspecified Status: Acute Assessment and Plan: Patient sent oxygen needs have increased throughout her stay, today at 5 L, though she is sufficiently diuresed, and her lung exam has improved. Repeat CXR showed little change. 05/22 echo showed LVEF at 55-60%, mild AV sclerosis, severe pulmonary hypertension/ PAP 66 mm Hg Cardiology advised discontinue 20 mg Lasix daily. Daily intake and output Daily weights (2) Atrial fibrillation with slow ventricular response: Code(s): I48.91 - Unspecified atrial fibrillation Status: Acute Assessment and Plan: Patient is followed by Cardiology, telemetry shows A-Fib Currently on diltiazem 60 mg q.6 hours, and metoprolol increased to 37.5 mg q.12 hours. Digoxin on hold Continue apixaban (3) Pneumonia: Code(s): J18.9 - Pneumonia, unspecified organism Status: Acute Assessment and Plan: Continues to have no leukocytosis or fever, COVID and flu negative, blood culture showed no growth to date, sputum culture showed few epithelial cells and few white blood cells, discontinued empiric cefepime and vanc. Home O2 assessment closer to discharge, as patient's O2 demands have been increasing steadily during her stay. (4) Essential hypertension: Code(s): I10 - Essential (primary) hypertension Status: Acute Assessment and Plan: Normotensive today. Will add medications for blood pressure as needed per cardiology recommendations (5) Chronic obstructive pulmonary disease: Code(s): J44.9 - Chronic obstructive pulmonary disease, unspecified Status: Acute Assessment and Plan: Plan as above Breathing treatments q.4 hours p.r.n. Patient is on 2 L O2 at baseline for COPD. (6) Hyperglycemia: Code(s): R73.9 - Hyperglycemia, unspecified Status: Acute Assessment and Plan: A1c from this month was 5.9% continue to monitor, consider starting low dose SSI as necessary. Additional Plan While patient's acute illnesses have been addressed (CHF exacerbation, pneumonia rule out), patient has had decreased interest in eating, is waking up anxious in the morning, remains fatigued throughout the day, and overall does appear to be failure to thrive. I discussed these concerns with surrogate decision makers (son and [id number]) who who stated they had already begun to talk with care coordination about hospice care options. These conversations are ongoing, and I will follow them. Subjective Date/time seen: 06/18/21 16:19 85-year-old female with history of COPD, CHF, dementia, AFib on anticoagulation, who presents to us for bradycardia. Interval history: She is very fatigued today. Each day she feels a little more fatigued per both her report and her son and [id number]'s. This morning she woke up feeling very short of breath, which is a common occurrence over the past few days. She does sleep with oxygen on, however she does tend to breathe through her mouth and does not breathe very well at night. This has been reported to me by both nursing staff and family. She has no appetite, and is not eating. Review of Systems Review of Systems: All systems reviewed & are unremarkable except as noted in HPI and below Exam Narrative: GENERAL APPEARANCE: Drowsy fatigued, chronically ill-appearing. HEENT: PERRL, EOMI. Sclerae anicteric. Moist mucous membranes. NECK: Supple. No JVD or obvious carotid bruits. RESPIRATORY: Respirations are nonlabored. Breath sounds are equal and clear bilaterally. No wheezes, Rhonchi, or rales. CARDIOVASCULAR: Irregularly irregular rhythm and variable rate with normal S1-S2. No murmurs, gallops, or rubs. GASTROINTESTINAL: Soft, flat, and benign. No mass, tenderness, guarding, or rebound. No organomegaly o
[2021-06-18] MEDS: CALCIUM CARBONATE (OSCAL) 500 MG TABLET PO (17:17)
[2021-06-18] MEDS: RIVAROXABAN 15 MG TABLET PO (17:17)
[2021-06-19] VITALS (14 sets, daily range): BP systolic 131–139; BP diastolic 66–69; PULSE 92–149; RESP 16–28; TEMP 36.1–36.4; O2SAT 77–95
[2021-06-19] MEDS: WATER FOR IRRIGATION, STERILE 1,000 ML BOTTLE 1000 ML (01:48)
--- NOTE | 2021-06-19 02:01 | PC.NURSE ---
Patient feels miserable with difficulty breathing. Cough has become coarse with weak cough effort, lungs are diminished with rhonchi. O2 sat fell to 60% when patient took off her oxygen. Replaced O2 with an 8 liter high flow cannula. Discussed with Dr. Asencio who is here seeing another patient. Will add Xopenex and Atrovent nebulizer treatments to start TOBI. RT Varsha notified of changes and orders.
--- NOTE | 2021-06-19 02:06 | PC.NURSE ---
Blas Gillespie RN, ICU charge, also notified of changes. Patient is a DNR status, considering Hospice in the AM. Will consider calling in the family if no improvement from the nebulizer treatments.
[2021-06-19] MEDS: IPRATROPIUM BR 0.02% INH SOLN 0.5 MG/2.5 ML VIAL INHALATION ×2 (02:12→07:57)
[2021-06-19] MEDS: LEVALBUTEROL NEB 1.25 MG/3 ML 0.63 MG INHALATION ×2 (02:12→07:57)
--- NOTE | 2021-06-19 04:14 | PC.NURSE ---
Patient is feeling much better, decreased work of breathing and cough. O2 sats have been 92% and greater on the high flow nasal cannula. Will continue to monitor closely.
[2021-06-19 05:02] LABS: Estimated CRCL calculation 43 ml/min; Estimated Glomerular Filt Rate > 60
--- NOTE | 2021-06-19 07:36 | PM.PNCARD ---
Progress Note: A&P Assessment and Plan (1) Elevated troponin: Code(s): R77.8 - Other specified abnormalities of plasma proteins Status: Acute Assessment and Plan: Mildly elevated at .045 and trended down. Doubt ACS. Likely due to bradycardia and COPD. (2) Atrial fibrillation with slow ventricular response: Code(s): I48.91 - Unspecified atrial fibrillation Status: Acute Assessment and Plan: Was on Diltiazem, Metoprolol and Digoxin. Continue Xarelto. Tachycardic On Diltiazem 60 mg PO every 12 hours and increased Metoprolol 50 mg every 12 hours. Leave Digoxin off. She is considering hospice care. (3) Chronic obstructive pulmonary disease: Code(s): J44.9 - Chronic obstructive pulmonary disease, unspecified Status: Acute Assessment and Plan: Decrease breath sounds probably related to COPD. Inhalers or neb treatment as needed. (4) Essential hypertension: Code(s): I10 - Essential (primary) hypertension Status: Acute Assessment and Plan: Stable. (5) PAD (peripheral artery disease): Code(s): I73.9 - Peripheral vascular disease, unspecified Status: Acute (6) Diastolic dysfunction: Code(s): I51.89 - Other ill-defined heart diseases Status: Acute Assessment and Plan: Appears euvolemic today. Stop Lasix. (7) NSVT (nonsustained ventricular tachycardia): Code(s): I47.2 - Ventricular tachycardia Status: Acute Assessment and Plan: She had 26 beat run 06/17/21 at around 6:30 pm. Mag is 1.9. On Mag Ox 400 mg PO daily to keep Mag>2. Subjective Date/time seen: 06/19/21 07:36 Reports chronic sob. She appears depressed. No chest pains. Exam Const: General: cooperative, comfortable and other (mentally withdrawn) Resp: Auscultation: crackles, no rales, no rhonchi, wheezes and diminished lung sounds Cardio: Jugular venous distension: no JVD Rate: tachycardic Rhythm: abnormal rhythm Heart sounds: no murmurs Peripheral pulses: dorsalis pedis present GI: GI Palp: No abdominal tenderness and Yes Soft to palpation Neuro: General: oriented to person, oriented to place and oriented to time Extrem: Right lower extremity: no edema Left lower extremity: no edema Objective Data Vital Signs Vital Signs: Vital Signs - 24 hr 05/01/22 08:00 06/18/21 08:08 06/18/21 09:07 Temperature Pulse Rate 125 H 112 H Respiratory Rate Blood Pressure Pulse Oximetry 92 91 06/18/21 09:08 06/18/21 10:00 06/18/21 12:00 Temperature 97.6 F Pulse Rate 112 H 102 H 94 Respiratory Rate 28 H Blood Pressure 109/61 Pulse Oximetry 92 06/18/21 14:00 06/18/21 16:00 06/18/21 19:59 Temperature 97.8 F 97.9 F Pulse Rate 130 H 70 113 H Respiratory Rate 20 24 H Blood Pressure 104/64 117/80 Pulse Oximetry 95 94 06/18/21 20:00 06/18/21 20:47 06/18/21 21:08 Temperature Pulse Rate 114 H 122 H 125 H Respiratory Rate Blood Pressure Pulse Oximetry 92 93 06/18/21 22:00 06/18/21 23:18 06/19/21 00:00 Temperature 97 F L Pulse Rate 94 104 H 92 Respiratory Rate 16 Blood Pressure 117/75 Pulse Oximetry 90 93 06/19/21 01:50 06/19/21 02:00 06/19/21 02:12 Temperature Pulse Rate 109 H 92 Respiratory Rate Blood Pressure Pulse Oximetry 77 L 94 06/19/21 02:24 06/19/21 04:00 06/19/21 06:00 Temperature 97 F L Pulse Rate 101 H 147 H 120 H Respiratory Rate 16 Blood Pressure 131/66 Pulse Oximetry 92 Intake/Output Intake/Output: Intake & Output 06/16/21 06/17/21 06/18/21 06/19/21 23:59 23:59 23:59 23:59 Intake Total 1000 610 390 100 Output Total 250 1000 600 200 Balance 750 -390 -210 -100 Meds/Results Medications: Active Medications Generic Name Dose Route Start Last Admin Trade Name Freq PRN Reason Stop Dose Admin Acetaminophen 650 mg 06/11/21 19:41 Acetaminophen 325 Mg Tablet PO Q6H PRN Mild Pain (1-3) or Fever Albu
[2021-06-19] MEDS: FLUTICASONE/UMECLIDIN/VILANTER 100-62.5-25 MCG ELLIPTA 1 PUFF INHALATION (07:57)
[2021-06-19 08:59] LABS: Basophils Absolute Auto 0.1 K/mm3 (0.0-0.1); Basophils Percent Auto 0.5 % (0.2-1.2); Eosinophils Percent Auto 0.2 % (0-4.4); Hematocrit 35.3 % (37.0-47.0); Hemoglobin 10.5 g/dL (12.0-15.0); Immature Granulocyte Absolute 0.24 K/mm3 (0.00-0.031); Immature Granulocyte Percent A 1.6 % (0-0.5); Lymphocytes Absolute Auto 0.67 K/mm3 (0.9-3.2); Lymphocytes Percent Auto 4.6 % (18.3-44.2); Mean Corpuscular HGB Conc 29.7 g/dl (32-36); Mean Corpuscular Hemoglobin 28.1 pg (26-34); Mean Corpuscular Volume 94.4 fl (80-100); Monocytes Absolute Auto 1.1 K/mm3 (0.1-0.6); Monocytes Percent Auto 7.4 % (2.6-8.5); Neutrophils Absolute Auto 12.6 K/mm3 (1.3-6.7); Neutrophils Percent Auto 85.7 % (45.5-73.1); Nucleated Red Blood Cells Absolute Auto 0.1 K/mm3 (0.0-0.012); Nucleated Red Blood Cells Perc 0.5 % (0.0-0.2); Platelet Count Result 413 k/mm3 (150-375); Red Blood Count 3.74 M/mm3 (4.2-5.4); Red Cell Distribution Width 16.6 % (11.5-14.5); White Blood Count 14.7 K/mm3 (4.5-10.0)
[2021-06-19] MEDS: METOPROLOL TARTRATE 50 MG TAB PO (09:05)
[2021-06-19] MEDS: dilTIAZem HCL 60 MG TABLET PO (09:05)
[2021-06-19 09:09] LABS: Alanine Aminotransferase 40 U/L (4-35); Alkaline Phosphatase 78 U/L (38-126); Anion Gap 4 mmol/L (8-16); Aspartate Amino Transferase 30 U/L (14-36); Bilirubin,Total 1.4 mg/dL (0.2-1.3); Blood Urea Nitrogen 36 mg/dL (7-17); Carbon Dioxide 31 mmol/L (22-30); Chloride 96 mmol/L (98-107); Estimated CRCL calculation 43 ml/min; Estimated Glomerular Filt Rate > 60; Glucose 147 mg/dL (65-110); Potassium 3.8 mmol/L (3.4-5.0); Sodium 131 mmol/L (137-145)
--- NOTE | 2021-06-19 10:34 | PCOTNOTE ---
Per auditor in charge, patient on bipap now. Per RN, hold therapy today. Will continue OT per plan of care tomorrow.
[2021-06-19] MEDS: LORazepam INJ (*CRX) 2 MG/ML VIAL 1 MG IV PUSH ×2 (11:20→13:14)
--- NOTE | 2021-06-19 11:32 | PCPTNOTE ---
Patient's RN requested for patient not to be seen for Physical Therapy today. RN stated that patient should be discharged from therapy due to being put on comfort measures.
[2021-06-19] MEDS: MORPHINE SULFATE (*CRX) 2 MG/ML INJ IV PUSH (12:22)
--- NOTE | 2021-06-19 15:53 | PM.DDS ---
Discharge Summary Date and Time Date of : 06/19/21 Time of : 14:02 Provider Pronounced By: bev newsome rn and neris de los santos rn Probable Cause of Probable Cause of : Respiratory Failure Summary Hospital Course: 85-year-old female with history of COPD, CHF, dementia, AFib on anticoagulation, who presented to us for symptomatic bradycardia. Patient's diltiazem, metoprolol, digoxin were held, cardiology was consulted, and diltiazem and metoprolol were slowly reintroduced, which the patient tolerated. Patient was on 2L home O2, and her oxygen needs increased during her stay, and she developed a wet cough. Chest x-ray showed atelectasis versus pneumonia, patient was empirically started on cefepime vanc to cover for HAP due to recent hospitalization. Patient's O2 demands continued to increase, with repeat CXR showing likely CHF exacerbation. She was diuresed, antibiotics were discontinued, and remained afebrile, without WBC elevation. Her CHF exacerbation was resolved, blood cultures, sputum cultures, and urine cultures showing yeast (likely contamination) all returned without signs of infection, the patient continued to decline with increased oxygen demand, and stopped eating. Comfort care and hospice were discussed with her power of sports attorney, to pursue this course of action. The patient was placed on comfort care 06/19/2021 and on 06/19/2021 at 14: 12 with her family at the bedside. U Additional Data Confirmation of as documented by pronouncing clinician: Pupillary Reflex, Palpable Pulses, Response to Stimuli, Heart Tones and Breath Sounds Name of Provider Notified: farzana de leon Time Provider Notified: 14:12 Provider Requests Autopsy: No Family Requests Autopsy: No Sr. Merchandise Planner Notified: Yes Date [facility] Notified of : 06/19/21 Time [facility] Notified of : 14:11
== END 2021-06-19 14:02 | disposition expired | DRG 291 ==
LOC: ANHED 17:51 → ANHIMU 19:35
PROVIDERS: Internal Medicine Cardiovascular Disease; Nurse Practitioner Adult Health; Physician Assistant; Admitting Provider Internal Medicine; Emergency Provider Emergency Medicine; PCP Family Medicine; Visit Provider Student in an Organized Health Care Education/Training Program
DX: I11.0 Hypertensive heart disease with heart failure (principal); I50.31 Acute diastolic (congestive) heart failure; J96.90 Respiratory failure, unspecified, unspecified whether with hypoxia or hypercapnia; J15.9 Unspecified bacterial pneumonia; I47.2 Ventricular tachycardia; Z66 Do not resuscitate; Z51.5 Encounter for palliative care; Z20.822 Contact with and (suspected) exposure to COVID-19; J44.9 Chronic obstructive pulmonary disease, unspecified; I48.91 Unspecified atrial fibrillation; I73.9 Peripheral vascular disease, unspecified; I27.20 Pulmonary hypertension, unspecified; F02.80 Dementia in other diseases classified elsewhere, unspecified severity, without behavioral disturbance, psychotic disturbance, mood disturbance, and anxiety; G30.9 Alzheimer's disease, unspecified; R77.8 Other specified abnormalities of plasma proteins; R73.9 Hyperglycemia, unspecified; R05.9 Cough, unspecified; R82.998 Other abnormal findings in urine; Z99.81 Dependence on supplemental oxygen; Z79.01 Long term (current) use of anticoagulants; Z87.891 Personal history of nicotine dependence
CPT/HCPCS: 36415; 36600; 71045; 71046; 80048; 80053; 80162; 81001; 82375; 82565; 82803; 82805; 83050; 83605; 83735; 84145; 84443; 84484; 85025; 85027; 85610; 85730; 87040; 87070; 87086; 87205; 87502; 87804; 93005; 93970; 94640; 96361; 96365; 96366; 96367; 96374; 96375; 97110; 97116; 97161; 97165; 97530; 97535; 99285; A9270; C9803; G0378; J0692; J1940; J2060; J2270; J2405; J2930; J3370; J7050; J7120; U0003; U0005